=== PATIENT | male | born 1940 | race Caucasian/White ===

== ENCOUNTER 2016-05-30 10:39 | Emergency (ER) | payer MEDICARE, BC ==
[2016-05-30] MEDS ORDERED: Sodium Chloride 0.9% 10 ML Syringe FLUSH PRN (11:30)
[2016-05-30] MEDS ORDERED: Sodium Chloride 0.9% 2.5 ML Syringe FLUSH PRN (11:30)
--- NOTE | 2016-05-30 11:32 | EDM.PDOC ---
ED HISTORY OF PRESENT ILLNESS - General Chief Complaint: Chest Pain Stated Complaint: RT SIDE HURTS Time Seen by Provider: 05/30/16 11:25 Source of Information: Reports: Patient History Limitations: Reports: No limitations - History of Present Illness INITIAL COMMENTS - FREE TEXT/NARRATIVE: HISTORY AND PHYSICAL: [A 76-year-old male with history of COPD and states that he awakened this morning cough is normal and had some upper quadrant pain] History of Present Illness: [Pain started today Denies any injury or falls] Review of Systems: As per history of present illness and below otherwise all systems reviewed and negative. Past medical history: As per history of present illness and as reviewed below otherwise noncontributory. Surgical history: As per history of present illness and as reviewed below otherwise noncontributory. Social history: No reported history of drug or alcohol abuse. Family history: As per history of present illness and as reviewed below otherwise noncontributory. Physical exam: Alert and oriented gentleman HEENT: Atraumatic, normocehpalic, pupils reactive, negative for conjunctival pallor or scleral icterus, mucous membranes moist, throat clear, neck supple, nontender, trachea midline. Left eye with ecchymosis, small ecchymotic area above the left upper lip Lungs: Clear to auscultation, breath sounds equal bilaterally, chest non tender. Heart: S1S2, regular, negative for clicks, rubs, or JVD. Abdomen: Soft, nondistended, nontender. Negative for masses or hepatossplenmegaly. Negative for costovertebral tenderness. Pelvis: Stable nontender. Genitourinary: Deferred. Rectal: Deferred Extremities: Atraumatic, negative for cords or calf pain. Bilateral edema to lower extremities Neurovascular unremarkable. Neuro: Awake, alert, oriented. Cranial nerves II through XII unremarkable. Cerebellum unremarkable. Motor and sensory unremarkable throughout. Exam nonfocal. The patient denies any pain as long as he is sitting still with twisting movement or cough pain occurs to the left upper quad. Chest the appearance of having fallen he is adamant that he has not fallen. Lastly he is requesting his Ventolin inhaler to be renewed Diagnostics: [CBC CMP chest x-ray ultrasound limited] Therapeutics: [] Impression: [muscle strain] Plan: [home Ventolin inhaler 2 puffs 3 times a day when necessary for Followup with your primary care provider Tylenol or Advil for discomfort] Definitive disposition and diagnosis as appropriate pending reevaluation and review of above. Timing/Duration: Reports: Hour(s): Severity: moderate Location, General: Reports: abdomen Quality: Reports: Ache Improves with: Reports: None Worsens with: Reports: Movement - Related Data Allergies/ADRs: Allergies Allergy/AdvReac Type Severity Reaction Status Date / Time No Known Allergies Allergy Verified 05/30/16 11:02 Home Meds: Home Meds Albuterol [Ventolin HFA] 1 puff INH Q4H PRN #1 inh 03/23/14 [Rx] Fluticasone/Salmeterol [Advair 250-50 Diskus] 1 puff INH BID #1 diskus 03/23/14 [Rx] Lisinopril 10 mg PO DAILY 11/17/14 [History] Metoprolol Succinate [Toprol Xl] 100 mg PO BID 11/17/14 [History] Ranolazine [Ranexa] 500 mg PO BID 11/17/14 [History] Tiotropium [Spiriva HandiHaler] 18 mcg INH ONETIME 11/17/14 [History] Aspirin 162 mg PO BID 01/28/15 [History] Cholecalciferol (Vitamin D3) [Vitamin D3] 0 unit PO DAILY 01/28/15 [History] Lutein/Minerals/Vit A,C & E [Ocuvite] 1 tab PO DAILY 01/28/15 [History] Multivitamin [Multivitamins] 1 tab PO DAILY 01/28/15 [History] Nitroglycerin 1 tab PO ASDIRECTED PRN 01/28/15 [History] Albuterol [Ventolin HFA] 1 gm INH Q4H #1 inhaler 05/30/16 [Rx] Past Medical History Cardiovascular History: Reports: Bypass, CAD Respiratory History: Reports: COPD, Other (see below) Other Respiratory History: emphysema Gastrointestinal History: Reports: GERD Musculoskeletal History: Reports: Other (see below) Other Musculoskeletal History: past rib fx Oncologic (Cancer) History: Reports: Prostate - Past Surgical History HEENT Surgical History: Reports: Other (see below) Other HEENT Surgeries/Procedures: sinus Cardiovascular Surgical History: Reports: Coronary artery bypass Social & Family History - Tobacco Use Smoking Status *Q: Current Every Day Smoker Years of Tobacco use: 55 Packs/Tins Daily: 0.2 Used Tobacco, but Quit: No Second Hand Smoke Exposure: No - Caffeine Use Caffeine Use: Reports: Coffee, Soda - Alcohol Use Days Per Week of Alcohol Use: 7 Number of Drinks Per Day: 4 Total Drinks Per Week: 28 - Recreational Drug Use Recreational Drug Use: No ED ROS GENERAL - Review of Systems Review Of Systems: ROS reveals no pertinent complaints other than HPI. ED EXAM, GENERAL - Physical Exam Exam: See Below (see dictation) Course - Vital Signs Last Recorded V/S: Last Vital Signs Temp 36.1 C 05/30/16 12:45 Pulse 62 05/30/16 12:45 Resp 18 05/30/16 12:45 BP 156/76 H 05/30/16 12:45 Pulse Ox 95 05/30/16 12:45 - Orders/Labs/Meds Orders: Active Orders 24 hr Category Date Time Status EKG Documentation Completion [RC] STAT Care 05/30/16 11:30 Active Sodium Chloride 0.9% [Saline Flush] Med 05/30/16 11:30 Active 10 ml FLUSH ASDIRECTED PRN Sodium Chloride 0.9% [Saline Flush] Med 05/30/16 11:30 Active 2.5 ml FLUSH ASDIRECTED PRN Saline Lock Insert [OM.PC] Stat Oth 05/30/16 11:30 Ordered Medication Orders Sodium Chloride (Saline Flush) 10 ml FLUSH ASDIRECTED PRN PRN Reason: Keep Vein Open Sodium Chloride (Saline Flush) 2.5 ml FLUSH ASDIRECTED PRN PRN Reason: Keep Vein Open Labs: Laboratory Tests 05/30/16 05/30/16 05/30/16 Range/Units 11:48 11:48 11:48 WBC 6.24 (4.0-11.0) K/uL RBC 3.70 L (4.50-5.90) M/uL Hgb 10.9 L (13.0-17.0) g/dL Hct 32.8 L (38.0-50.0) % MCV 88.6 (80.0-98.0) fL MCH 29.5 (27.0-32.0) pg MCHC 33.2 (31.0-37.0) g/dL RDW Std Deviation 46.1 (28.0-62.0) fl RDW Coeff of Trae 14 (11.0-15.0) % Plt Count 240 (150-400) K/uL MPV 8.40 (7.40-12.00) fL Neut % (Auto) 65.1 (48.0-80.0) % Lymph % (Auto) 20.7 (16.0-40.0) % [place] % (Auto) 12.3 (0.0-15.0) % Eos % (Auto) 1.6 (0.0-7.0) % Baso % (Auto) 0.3 (0.0-1.5) % Neut # 4.1 (1.4-5.7) K/uL Lymph # 1.3 (0.6-2.4) K/uL [place] # 0.8 (0.0-0.8) K/uL Eos # 0.1 (0.0-0.7) K/uL Baso # 0.0 (0.0-0.1) K/uL Nucleated RBC % 0.0 /100WBC Nucleated RBCs # 0 K/uL Lactate 1.0 (0.20-2.00) mmol/L Sodium 131 L (136-146) mmol/L Potassium 4.9 (3.5-5.1) mmol/L Chloride 97 L (98-110) mmol/L Carbon Dioxide 25 (21-31) mmol/L BUN 19 (6.0-23.0) mg/dL Creatinine 1.1 (0.6-1.5) mg/dL Est Cr Clr Drug Dosing 52.36 mL/min Estimated GFR (MDRD) > 60.0 ml/min Glucose 93 (60-110) mg/dL Calcium 8.9 (8.8-10.8) mg/dL Total Bilirubin 0.8 (0.1-1.5) mg/dL AST 30 (5-40) IU/L ALT 23 (8-54) IU/L Alkaline Phosphatase 48 (40-150) Total Protein 7.1 (6.0-8.0) g/dL Albumin 4.1 (3.4-4.8) g/dL Globulin 3.0 (2.0-3.5) g/dL Albumin/Globulin Ratio 1.4 (1.3-2.8) Meds: Medications Generic Name Dose Route Start Last Admin Trade Name Freq PRN Reason Stop Dose Admin Sodium Chloride 10 ml 05/30/16 11:30 Saline Flush FLUSH ASDIRECTED PRN Keep Vein Open Sodium Chloride 2.5 ml 05/30/16 11:30 Saline Flush FLUSH ASDIRECTED PRN Keep Vein Open Discontinued Medications Generic Name Dose Route Start Last Admin Trade Name Freq PRN Reason Stop Dose Admin Ketorolac Tromethamine 30 mg 05/30/16 12:41 05/30/16 12:59 Toradol IVPUSH 05/30/16 12:42 Not Given ONETIME ONE Departure - Departure Time of Disposition: 13:34 Disposition: Home, Self-Care 01 Condition: good Clinical Impression: COPD, Moderate chronic obstructive pulmonary disease Muscle strain of chest wall Qualifiers: Encounter type: initial encounter Qualified Code(s): S29.011A - Strain of muscle and tendon of front wall of thorax, initial encounter Prescriptions: Albuterol [Ventolin HFA] 1 gm INH Q4H #1 inhaler Forms: ED Department Discharge Additional Instructions: The following information is given to patients seen in the emergency department who are being discharged to home. This information is to outline your options for follow-up care. We provide all patients seen in our emergency department with a follow-up referral. The need for follow-up, as well as the timing and circumstances, are variable depending upon the specifics of your emergency department visit. If you don't have a primary care physician on staff, we will provide you with a referral. We always advise you to contact your personal physician following an emergency department visit to inform them of the circumstance of the visit and for follow-up with them and/or the need for any referrals to a consulting specialist. The emergency department will also refer you to a specialist when appropriate. This referral assures that you have the opportunity for followup care with a specialist. All of these measure are taken in an effort to provide you with optimal care, which includes your followup. Under all circumstances we always encourage you to contact your private physician who remains a resource for coordinating your care. When calling for followup care, please make the office aware that this follow-up is from your recent emergency room visit. If for any reason you are refused follow-up, please contact the [facility] emergency department at and asked to speak to the emergency department charge nurse. Your prescription has been electronically sent to [facility] Followup with your PCP next week - My Orders Last 24 Hours: My Active Orders 05/30/16 11:30 EKG Documentation Completion [RC] STAT Sodium Chloride 0.9% [Saline Flush] 10 ml FLUSH ASDIRECTED PRN Sodium Chloride 0.9% [Saline Flush] 2.5 ml FLUSH ASDIRECTED PRN Saline Lock Insert [OM.PC] Stat - Assessment/Plan Last 24 Hours: My Active Orders 05/30/16 11:30 EKG Documentation Completion [RC] STAT Sodium Chloride 0.9% [Saline Flush] 10 ml FLUSH ASDIRECTED PRN Sodium Chloride 0.9% [Saline Flush] 2.5 ml FLUSH ASDIRECTED PRN Saline Lock Insert [OM.PC] Stat
[2016-05-30 12:17] LABS: CHLORIDE,CL 97 mmol/L (98-110); SODIUM,NA 131 mmol/L (136-146)
--- NOTE | 2016-05-30 12:40 | US ---
EXAMINATION: Right upper quadrant ultrasound HISTORY: Pain COMPARISON: CT dated 08/07/2013 TECHNIQUE: Grayscale and color Doppler images obtained of the right upper quadrant. FINDINGS: The pancreas is not well characterized. The liver appears normal in contour and echogenici ty without a focal hepatic mass. Gallbladder wall thickness is normal. No pericholecystic fluid or s hadowing gallstones. Common bile duct measures 3 mm. The right kidney measures 11.5 cm [id number] without evidence of hydronephrosis. No ascites identified. Negative sonographic Ty sign. IMPRESSION: Grossly unremarkable right upper quadrant ultrasound.
[2016-05-30] MEDS ORDERED: Ketorolac 30 MG/ML SDV IVPUSH ONE (12:41)
--- NOTE | 2016-05-30 13:19 | CR ---
EXAMINATION: Two-view chest (PA and Lateral views). HISTORY: Shortness of breath. FINDINGS: The trachea is midline. The cardiomediastinal silhouette is within normal limits. No pulmonary infil trates, effusions or pneumothorax. There is a chronic interstitial prominence and mild hyperinflatio n. Median sternotomy wires noted. Multiple chronic appearing rib fractures are noted bilaterally. There is several compression deformi ties within the thoracic spine. IMPRESSION: 1. No definite acute cardiopulmonary finding. 2. Old rib fractures noted. 3. Several compression deformities in the thoracic spine. 4. Chronic interstitial prominence and hyperinflation.
[2016-05-30 14:02] VITALS: BP 185/89
== END 2016-05-30 14:04 | disposition home or self-care (01) ==
LOC: MW.ED 10:39
DX: J44.9 Chronic obstructive pulmonary disease, unspecified (principal); K21.9 Gastro-esophageal reflux disease without esophagitis; F17.210 Nicotine dependence, cigarettes, uncomplicated; Z79.899 Other long term (current) drug therapy; Z95.1 Presence of aortocoronary bypass graft
CPT/HCPCS: 36415; 71020; 71020-26; 76705; 76705-26; 80053; 83605; 85025; 93005; 99284; 99284-25

== ENCOUNTER → 2016-06-12 | Outpatient (CLI) | payer MEDICARE, BC | LOC: MW.CHFP 15:25 | PROVIDERS: ATTEND Emergency Medicine | DX: R53.83 Other fatigue (principal); J44.1 Chronic obstructive pulmonary disease with (acute) exacerbation; K43.9 Ventral hernia without obstruction or gangrene | CPT/HCPCS: 36415; 84402; 84403; G0463 ==

== ENCOUNTER 2016-07-19 15:59 | Emergency (ER) | payer MEDICARE, BC ==
[2016-07-19] MEDS ORDERED: Sodium Chloride 0.9% 10 ML Syringe FLUSH PRN (16:17)
[2016-07-19] MEDS ORDERED: Sodium Chloride 0.9% 2.5 ML Syringe FLUSH PRN (16:17)
--- NOTE | 2016-07-19 16:19 | EDM.PDOC ---
ED HISTORY OF PRESENT ILLNESS - General Chief Complaint: Cardiovascular Problem Stated Complaint: LOW BP Time Seen by Provider: 07/19/16 16:04 - History of Present Illness INITIAL COMMENTS - FREE TEXT/NARRATIVE: HISTORY AND PHYSICAL: History of present illness: The patient is a 76-year-old male who follows in our family practice clinic as well as with Dr. Portillo for cardiology in [place] and presents with low blood pressures at home. According to the patient he was seen by the vacuum cleaner repair person 2 days ago in [place] and had a few of his medications changed but overall he says he was doing well and had no issues. Today the patient says he was having a normal day and did some activity and this afternoon started feeling generalized weakness a little lightheaded and sweaty. He took his blood pressures at home and noted that they were systolics of 70s-60s over 40s. He did not pass out or blackout and had no chest pain shortness of breath headache nausea vomiting abdominal complaints or neurosensory changes. He called the clinic for advice and was advised to come here. Procedure the clinic he was not sure if you would be coming and he presents now to the ED. He says he currently feels asymptomatic and is not lightheaded dizzy and has no complaints of any pain in the ER. The patient has had multiple medical problems including coronary artery disease with CABG and an aortic valve replacement with a porcine valve. He has carotid stenosis COPD diastolic dysfunction dyslipidemia hypertension hyponatremia in the past as well as stable angina for which he uses nitroglycerin at home as needed. Patient denies using nitroglycerin anytime in the last few days. The patient says he's been eating and drinking normally and has been following his usual routine. Patient gives me a list of blood pressure studies performed over the last several weeks and it shows a progressive decrease in his numbers from 130s systolic to today's numbers. I asked him whether or not he should these list to Dr. Portillo and he says yes. Review of systems: As per history of present illness and below otherwise all systems reviewed and negative. Past medical history: As per history of present illness and as reviewed below otherwise noncontributory. Surgical history: As per history of present illness and as reviewed below otherwise noncontributory. Social history: No reported history of drug or alcohol abuse. Family history: As per history of present illness and as reviewed below otherwise noncontributory. Physical exam: General: Well-developed thin man who is nontoxic and speaking clearly and easily in the ED. Vital signs are noted by me and his current systolic blood pressure is 108 on my evaluation. He has no symptomatology and is cooperative and interactive. HEENT: Atraumatic, normocephalic, pupils reactive, negative for conjunctival pallor or scleral icterus, mucous membranes moist, throat clear, neck supple, nontender, trachea midline. Lungs: Clear to auscultation, breath sounds equal bilaterally, chest nontender. There is no work or breathing or sensory muscle use Heart: S1S2, regular, negative for clicks, rubs, or JVD. Abdomen: Soft, nondistended, nontender. Negative for masses or hepatosplenomegaly. Negative for costovertebral tenderness. Pelvis: Stable nontender. Genitourinary: Deferred. Rectal: Deferred. Extremities: Atraumatic, negative for cords or calf pain. Neurovascular unremarkable. No pedal edema Neuro: Awake, alert, oriented. Cranial nerves II through XII unremarkable. Cerebellum unremarkable. Motor and sensory unremarkable throughout. Exam nonfocal. Diagnostics: EKG CBC CMP INR troponin lactic acid UA chest x-ray I reviewed the EKG and compared to one performed on May 30, 2016. It is basically unchanged except for a new T-wave inversion in V5 which was not present in May all other changes are chronic. Therapeutics: IV O2 monitor gentle IV fluids I discussed the testing results with the patient at length and have shown him his current EKG as compared to the one done in May of this year. I showed him the new T-wave inversion in V5 and have advised that he stay in the hospital on a monitor to follow that change as well as serial troponins and adjust his blood pressure medications. He absolutely is refusing to stay in the hospital. He is aware of my concerns and accepts all of them and says that he will be in contact with Dr. Trejo tomorrow to discuss his medications and he will also contact Dr. Portillo. he is aware that we cannot definitively say that there was not a cardiac component to today's events and only eating and today's visit and concern that his medications are not being adjusted to accommodate for these changes and he accepts those risks and refuses admission.that the only way that we determine this by admission to the hospital and he declined the admission. I also expressed my concern about his variable blood pressures over the last few weeks Impression: hypotension resolved prior to admission with history of hypertension and cardiac disease, mild dehydration, refusal of admission Definitive disposition and diagnosis as appropriate pending reevaluation and review of above. - Related Data Allergies/ADRs: Allergies Allergy/AdvReac Type Severity Reaction Status Date / Time No Known Allergies Allergy Verified 07/19/16 16:12 Home Meds: Home Meds Lisinopril 10 mg PO DAILY 11/17/14 [History] Metoprolol Succinate [Toprol Xl] 100 mg PO BID 11/17/14 [History] Ranolazine [Ranexa] 500 mg PO DAILY 11/17/14 [History] Tiotropium [Spiriva HandiHaler] 18 mcg INH DAILY 11/17/14 [History] Aspirin 325 mg PO ACDINNER 01/28/15 [History] Cholecalciferol (Vitamin D3) [Vitamin D3] 2,000 unit PO DAILY 01/28/15 [History] Multivitamin [Multivitamins] 1 tab PO DAILY 01/28/15 [History] Nitroglycerin 1 tab PO ASDIRECTED PRN 01/28/15 [History] Ascorbic Acid [C-1000] 1,000 mg PO DAILY 07/19/16 [History] Clopidogrel [Plavix] 75 mg PO DAILY 07/19/16 [History] Ezetimibe/Simvastatin [Vytorin 10-80 mg Tablet] 1 tab PO BEDTIME 07/19/16 [ History] Famotidine 20 mg PO DAILY 07/19/16 [History] Fish Oil/[place]-3 Fatty Acids [Fish Oil 1,000 MG] 1 gm PO DAILY 07/19/16 [History ] Isosorbide Mononitrate [Imdur] 30 mg PO BID 07/19/16 [History] Lutein/Minerals/Vit A,C & E [Ocuvite] 1 tab PO DAILY 07/19/16 [History] Rutin/Hesp/Bioflav/C/Herb#196 [Bioflex] 1 each PO DAILY 07/19/16 [History] Ubidecarenone [Coenzyme Q10] 100 mg PO DAILY 07/19/16 [History] guaiFENesin [Guaifenesin] 400 mg PO Q4H PRN 07/19/16 [History] guaiFENesin [Mucinex] 600 mg PO ASDIRECTED 07/19/16 [History] Past Medical History Cardiovascular History: Reports: Bypass, CAD, Heart valve replacement Respiratory History: Reports: COPD, Other (see below) Other Respiratory History: emphysema Gastrointestinal History: Reports: GERD Musculoskeletal History: Reports: Other (see below) Other Musculoskeletal History: past rib fx Oncologic (Cancer) History: Reports: Prostate - Infectious Disease History Infectious Disease History: Reports: Chicken pox, Measles, Mumps - Past Surgical History HEENT Surgical History: Reports: Other (see below) Other HEENT Surgeries/Procedures: sinus Cardiovascular Surgical History: Reports: Coronary artery bypass Social & Family History - Family History Family Medical History: Noncontributory - Tobacco Use Smoking Status *Q: Current Every Day Smoker Years of Tobacco use: 50 Packs/Tins Daily: 0.1 Used Tobacco, but Quit: No Second Hand Smoke Exposure: No - Caffeine Use Caffeine Use: Reports: None - Alcohol Use Days Per Week of Alcohol Use: 7 Number of Drinks Per Day: 3 Total Drinks Per Week: 21 - Recreational Drug Use Recreational Drug Use: No ED ROS GENERAL - Review of Systems Review Of Systems: ROS reveals no pertinent complaints other than HPI. ED EXAM, GENERAL - Physical Exam Exam: See Below (See dictation) Course - Vital Signs Last Recorded V/S: Last Vital Signs Temp 36.8 C 07/19/16 16:08 Pulse 62 07/19/16 16:08 Resp 18 07/19/16 16:08 BP 89/43 L 07/19/16 16:08 Pulse Ox 95 07/19/16 17:30 - Orders/Labs/Meds Orders: Active Orders 24 hr Category Date Time Status Cardiac Monitoring [RC] . DIRECTED Care 07/19/16 16:17 Active EKG Documentation Completion [RC] STAT Care 07/19/16 16:17 Active Oxygen Therapy, ED [RC] ASDIRECTED Care 07/19/16 16:17 Active Pulse Oximetry [RC] ASDIRECTED Care 07/19/16 16:17 Active Chest 1V Frontal [CR] Stat Exams 07/19/16 16:17 Taken Sodium Chloride 0.9% [Normal Saline] 500 ml Med 07/19/16 16:30 Active IV STAT Sodium Chloride 0.9% [Saline Flush] Med 07/19/16 16:17 Active 10 ml FLUSH ASDIRECTED PRN Sodium Chloride 0.9% [Saline Flush] Med 07/19/16 16:17 Active 2.5 ml FLUSH ASDIRECTED PRN Saline Lock Insert [OM.PC] Stat Oth 07/19/16 16:17 Ordered Medication Orders Sodium Chloride (Normal Saline) 500 mls @ 999 mls/hr IV STAT PURVI Last Admin: 07/19/16 16:00 Dose: 999 mls/hr Sodium Chloride (Saline Flush) 10 ml FLUSH ASDIRECTED PRN PRN Reason: Keep Vein Open Sodium Chloride (Saline Flush) 2.5 ml FLUSH ASDIRECTED PRN PRN Reason: Keep Vein Open Labs: Laboratory Tests 07/19/16 07/19/16 07/19/16 Range/Units 16:10 16:10 16:10 WBC 5.25 (4.0-11.0) K/uL RBC 3.51 L (4.50-5.90) M/uL Hgb 10.2 L (13.0-17.0) g/dL Hct 30.1 L (38.0-50.0) % MCV 85.8 (80.0-98.0) fL MCH 29.1 (27.0-32.0) pg MCHC 33.9 (31.0-37.0) g/dL RDW Std Deviation 55.3 (28.0-62.0) fl RDW Coeff of Trae 18 H (11.0-15.0) % Plt Count 271 (150-400) K/uL MPV 8.90 (7.40-12.00) fL Neut % (Auto) 57.4 (48.0-80.0) % Lymph % (Auto) 24.8 (16.0-40.0) % Hutchinson % (Auto) 14.5 (0.0-15.0) % Eos % (Auto) 2.9 (0.0-7.0) % Baso % (Auto) 0.4 (0.0-1.5) % Neut # (Auto) 3.0 (1.4-5.7) K/uL Lymph # (Auto) 1.3 (0.6-2.4) K/uL Hutchinson # (Auto) 0.8 (0.0-0.8) K/uL Eos # (Auto) 0.2 (0.0-0.7) K/uL Baso # (Auto) 0.0 (0.0-0.1) K/uL Nucleated RBC % 0.0 /100WBC Nucleated RBCs # 0 K/uL INR 0.96 (0.86-1.11) Lactate 1.6 (0.20-2.00) mmol/L Sodium (136-146) mmol/L Potassium (3.5-5.1) mmol/L Chloride (98-110) mmol/L Carbon Dioxide (21-31) mmol/L BUN (6.0-23.0) mg/dL Creatinine (0.6-1.5) mg/dL Est Cr Clr Drug Dosing mL/min Estimated GFR (MDRD) ml/min Glucose (60-110) mg/dL Calcium (8.8-10.8) mg/dL Total Bilirubin (0.1-1.5) mg/dL AST (5-40) IU/L ALT (8-54) IU/L Alkaline Phosphatase (40-150) Troponin I (0.0-0.29) NG/ML Total Protein (6.0-8.0) g/dL Albumin (3.4-4.8) g/dL Globulin (2.0-3.5) g/dL Albumin/Globulin Ratio (1.3-2.8) 07/19/16 07/19/16 Range/Units 16:10 16:10 WBC (4.0-11.0) K/uL RBC (4.50-5.90) M/uL Hgb (13.0-17.0) g/dL Hct (38.0-50.0) % MCV (80.0-98.0) fL MCH (27.0-32.0) pg MCHC (31.0-37.0) g/dL RDW Std Deviation (28.0-62.0) fl RDW Coeff of Trae (11.0-15.0) % Plt Count (150-400) K/uL MPV (7.40-12.00) fL Neut % (Auto) (48.0-80.0) % Lymph % (Auto) (16.0-40.0) % Hutchinson % (Auto) (0.0-15.0) % Eos % (Auto) (0.0-7.0) % Baso % (Auto) (0.0-1.5) % Neut # (Auto) (1.4-5.7) K/uL Lymph # (Auto) (0.6-2.4) K/uL Hutchinson # (Auto) (0.0-0.8) K/uL Eos # (Auto) (0.0-0.7) K/uL Baso # (Auto) (0.0-0.1) K/uL Nucleated RBC % /100WBC Nucleated RBCs # K/uL INR (0.86-1.11) Lactate (0.20-2.00) mmol/L Sodium 130 L (136-146) mmol/L Potassium 4.7 (3.5-5.1) mmol/L Chloride 99 (98-110) mmol/L Carbon Dioxide 19 L (21-31) mmol/L BUN 25 H (6.0-23.0) mg/dL Creatinine 1.3 (0.6-1.5) mg/dL Est Cr Clr Drug Dosing 42.01 mL/min Estimated GFR (MDRD) 53.8 ml/min Glucose 96 (60-110) mg/dL Calcium 9.3 (8.8-10.8) mg/dL Total Bilirubin 0.3 (0.1-1.5) mg/dL AST 21 (5-40) IU/L ALT 12 (8-54) IU/L Alkaline Phosphatase 42 (40-150) Troponin I < 0.10 (0.0-0.29) NG/ML Total Protein 7.1 (6.0-8.0) g/dL Albumin 4.2 (3.4-4.8) g/dL Globulin 2.9 (2.0-3.5) g/dL Albumin/Globulin Ratio 1.4 (1.3-2.8) Meds: Medications Generic Name Dose Route Start Last Admin Trade Name Freq PRN Reason Stop Dose Admin Sodium Chloride 500 mls @ 999 mls/hr 07/19/16 16:30 07/19/16 16:00 Normal Saline IV 999 mls/hr STAT PURVI Administration Sodium Chloride 10 ml 07/19/16 16:17 Saline Flush FLUSH ASDIRECTED PRN Keep Vein Open Sodium Chloride 2.5 ml 07/19/16 16:17 Saline Flush FLUSH ASDIRECTED PRN Keep Vein Open Departure - Departure Time of Disposition: 17:44 Disposition: Home, Self-Care 01 Condition: good Clinical Impression: Hypotension Qualifiers: Hypotension type: unspecified hypotension type Qualified Code(s): I95.9 - Hypotension, unspecified Forms: ED Department Discharge Additional Instructions: The following information is given to patients seen in the emergency department who are being discharged to home. This information is to outline your options for follow-up care. We provide all patients seen in our emergency department with a follow-up referral. The need for follow-up, as well as the timing and circumstances, are variable depending upon the specifics of your emergency department visit. If you don't have a primary care physician on staff, we will provide you with a referral. We always advise you to contact your personal physician following an emergency department visit to inform them of the circumstance of the visit and for follow-up with them and/or the need for any referrals to a consulting specialist. The emergency department will also refer you to a specialist when appropriate. This referral assures that you have the opportunity for followup care with a specialist. All of these measure are taken in an effort to provide you with optimal care, which includes your followup. Under all circumstances we always encourage you to contact your private physician who remains a resource for coordinating your care. When calling for followup care, please make the office aware that this follow-up is from your recent emergency room visit. If for any reason you are refused follow-up, please contact the [facility] emergency department at and ask to speak to the emergency department charge nurse. [facility] Primary care- Internal Medicine and Family [address] Trejo and or Dr. Portillo tomorrow as we discussed to adjust the medications. Please continue to monitor your blood pressure as we discussed. Please push hydration and please return to the ER as needed and as discussed and if you decide to change your mind about admission - My Orders Last 24 Hours: My Active Orders 07/19/16 16:17 Cardiac Monitoring [RC] . DIRECTED EKG Documentation Completion [RC] STAT Oxygen Therapy, ED [RC] ASDIRECTED Pulse Oximetry [RC] ASDIRECTED Chest 1V Frontal [CR] Stat Sodium Chloride 0.9% [Saline Flush] 10 ml FLUSH ASDIRECTED PRN Sodium Chloride 0.9% [Saline Flush] 2.5 ml FLUSH ASDIRECTED PRN Saline Lock Insert [OM.PC] Stat 07/19/16 16:30 Sodium Chloride 0.9% [Normal Saline] 500 ml IV STAT - Assessment/Plan Last 24 Hours: My Active Orders 07/19/16 16:17 Cardiac Monitoring [RC] . DIRECTED EKG Documentation Completion [RC] STAT Oxygen Therapy, ED [RC] ASDIRECTED Pulse Oximetry [RC] ASDIRECTED Chest 1V Frontal [CR] Stat Sodium Chloride 0.9% [Saline Flush] 10 ml FLUSH ASDIRECTED PRN Sodium Chloride 0.9% [Saline Flush] 2.5 ml FLUSH ASDIRECTED PRN Saline Lock Insert [OM.PC] Stat 07/19/16 16:30 Sodium Chloride 0.9% [Normal Saline] 500 ml IV STAT
[2016-07-19] MEDS ORDERED: Sodium Chloride 0.9% 500 ML IV SCH (16:30)
[2016-07-19 18:02] VITALS: BP 105/59
--- NOTE | 2016-07-20 16:00 | CR ---
EXAM DATE: 07/19/16 PATIENT'S AGE: 76 Patient: TRISTAN ROSS Facility: [place], [place] Site . Site : 1940 Study: XRay Chest [id number]/4/2017 5:15:21 PM Ordering Physician: Neal Vidal Final Report: INDICATIONS: Low blood pressure. TECHNIQUE: Chest 1 view. COMPARISON: Chest radiograph 05/30/2016. FINDINGS: No pneumothorax, pleural effusion or focal airspace consolidation. Aortic atherosclerosis and tortuosity, unchanged. Median sternotomy. Mild enlargement of the cardiac silhouette. No pulmonary edema. Remote right clavicle and rib fractures as before. IMPRESSION: No evidence of acute cardiopulmonary disease. Dictated by Casper Navas MD @ 07/19/2016 5:22:49 PM Dictated by: Casper Navas MD @ 07/19/2016 17:22:55 (Electronic Signature) Report Signed by Proxy. [facility]
== END 2016-07-19 18:02 | disposition home or self-care (01) ==
LOC: MW.ED 15:59
DX: I95.9 Hypotension, unspecified (principal); F17.210 Nicotine dependence, cigarettes, uncomplicated; I25.810 Atherosclerosis of coronary artery bypass graft(s) without angina pectoris; K21.9 Gastro-esophageal reflux disease without esophagitis; Z95.1 Presence of aortocoronary bypass graft; Z95.2 Presence of prosthetic heart valve; Z85.46 Personal history of malignant neoplasm of prostate; Z79.82 Long term (current) use of aspirin; Z79.02 Long term (current) use of antithrombotics/antiplatelets; Z79.899 Other long term (current) drug therapy
CPT/HCPCS: 36415; 71010; 80053; 83605; 84484; 85025; 85610; 93005; 99285; J7040; 99283

== ENCOUNTER 2016-07-20 13:30 | Inpatient (IN) | payer MEDICARE, BC ==
[2016-07-20] MEDS ORDERED: Sodium Chloride 0.9% 10 ML Syringe FLUSH PRN (13:34)
[2016-07-20] MEDS ORDERED: Sodium Chloride 0.9% 2.5 ML Syringe FLUSH PRN (13:34)
[2016-07-20] MEDS ORDERED: Sodium Chloride 0.9% 1,000 ML IV SCH (13:45)
[2016-07-20] MEDS ORDERED: Aspirin 81 MG Tab.Chew PO ONE (13:47)
--- NOTE | 2016-07-20 13:55 | EDM.PDOC ---
ED HPI GENERAL MEDICAL PROBLEM - General Chief Complaint: Chest Pain Stated Complaint: UNK Time Seen by Provider: 07/20/16 13:31 - History of Present Illness INITIAL COMMENTS - FREE TEXT/NARRATIVE: HISTORY AND PHYSICAL: History of present illness: The patient is a 76-year-old male with a long-standing history of COPD CABG porcine aortic valve replacement diastolic dysfunction dyslipidemia upper tension who follows with Dr. Trejo in our clinic as well as Dr. Portillo in [place] for cardiology, who presents today for reevaluation of her low blood pressure. The patient was seen here yesterday by me for gradually decreasing blood pressures over the last few weeks and new low blood pressures of 60s over 40s with lightheadedness but no syncope. According to the patient he was seen on Saturday of this week by Dr. Portillo and had to his medications adjusted as he showed Dr. Portillo his blood pressure numbers over the last few weeks and they indicated he was going from 130s to 80s systolic. The patient states that he monitors his blood pressure at home very diligently and has never had any syncope but intermittently will feel lightheaded and dizzy. When I saw him yesterday he had no complaints of shortness of breath or chest pain and no other systemic complaints has been eating and drinking normally with no fevers. Patient was worked up and was noted to have a new T-wave inversion on V5 of EKG but negative troponin and slight dehydration on his chemistry panel. Throughout the course of the patient's stay in the ER his blood pressure never went below 100 systolic. The patient was offered admission for reevaluation of his blood pressure medications as well as serial EKGs and enzymes and he adamantly refused and went home. Patient says that he hadan important meeting last night that he could not miss. Patient says he's been following his blood pressures which have been 120s to 130s systolic through the night; he said that he started having some chest pain and burning around 3:00 in the morning but did not take a nitroglycerin until one hour later at 4 AM. The discomfort went away but then returned about an hour later and he took a second nitroglycerin at 5 AM. The chest pain/burning has not returned and he is currently asymptomatic other than feeling somewhat fatigued and tired and a little short of breath with activity. the patient says he feels like he has a little bit of swelling of his feet but it is not significant The patient again denies fever chills abdominal pain nausea diaphoresis and currently states that he feels at his baseline and he does not understand why his blood pressure is still low. The lowest value he got to the last 18 hours was 70/40. Patient presented to triage asking for a direct admission but due to the timeframe he was unable to get a directed and we will work him up through the ER. He is also aware that in light of his 2 episodes of chest pain this morning he would need to have reevaluation here. Patient again denies to me any black or bloody stools and diarrhea says he has not had a bowel movement today but his prior ones yesterday the day before were normal for him Review of systems: As per history of present illness and below otherwise all systems reviewed and negative. Past medical history: As per history of present illness and as reviewed below otherwise noncontributory. Surgical history: As per history of present illness and as reviewed below otherwise noncontributory. Social history: No reported history of drug or alcohol abuse. Family history: As per history of present illness and as reviewed below otherwise noncontributory. Physical exam: General: Well-developed thin man who is nontoxic and speaking clearly and easily in the ED. Vital signs have been noted by me. Is not breathless on my evaluation. HEENT: Atraumatic, normocephalic, negative for conjunctival pallor or scleral icterus, mucous membranes moist, throat clear, neck supple, nontender, trachea midline. Lungs: Clear to auscultation but more diminished at the bases than yesterday's evaluation, no work or breathing or sensory muscle use no wheezing or stridor,, breath sounds equal bilaterally, chest nontender. Heart: S1S2, regular, negative for clicks, rubs, or JVD. Abdomen: Soft, nondistended, nontender. Negative for masses or hepatosplenomegaly. Negative for costovertebral tenderness. Pelvis: Stable nontender. Genitourinary: Deferred. Rectal: Scant brown stool in the vault which is not black or bloody but Hemoccult negative normal tone Extremities: Atraumatic, negative for cords or calf pain. Neurovascular unremarkable. Trace pedal edema bilaterally Neuro: Awake, alert, oriented. Cranial nerves II through XII unremarkable. Cerebellum unremarkable. Motor and sensory unremarkable throughout. Exam nonfocal. Diagnostics: EKG chest x-ray CBC CMP troponin UA Therapeutics: IV O2 monitor and aspirin gentle IV fluids 1459: Patient and family at bedside are aware of testing results and need for admission. Case was also discussed with Dr. Sebastian who accepts the patient for observation admission Impression: Episodic hypotension with history of hypertension, new mild anemia and heme positive stool, episodes of chest pain resolved prior to admission and h/o stable angina, history of coronary artery disease CABG and aortic valve replacement Definitive disposition and diagnosis as appropriate pending reevaluation and review of above. - Related Data Allergies Allergy/AdvReac Type Severity Reaction Status Date / Time No Known Allergies Allergy Verified 07/19/16 16:12 Home Meds: Home Meds Lisinopril 10 mg PO DAILY 11/17/14 [History] Metoprolol Succinate [Toprol Xl] 100 mg PO BID 11/17/14 [History] Ranolazine [Ranexa] 500 mg PO DAILY 11/17/14 [History] Tiotropium [Spiriva HandiHaler] 18 mcg INH DAILY 11/17/14 [History] Aspirin 325 mg PO ACDINNER 01/28/15 [History] Cholecalciferol (Vitamin D3) [Vitamin D3] 2,000 unit PO DAILY 01/28/15 [History] Multivitamin [Multivitamins] 1 tab PO DAILY 01/28/15 [History] Nitroglycerin 1 tab PO ASDIRECTED PRN 01/28/15 [History] Ascorbic Acid [C-1000] 1,000 mg PO DAILY 07/19/16 [History] Clopidogrel [Plavix] 75 mg PO DAILY 07/19/16 [History] Ezetimibe/Simvastatin [Vytorin 10-80 mg Tablet] 1 tab PO BEDTIME 07/19/16 [ History] Famotidine 20 mg PO DAILY 07/19/16 [History] Fish Oil/Belle-3 Fatty Acids [Fish Oil 1,000 MG] 1 gm PO DAILY 07/19/16 [History ] Isosorbide Mononitrate [Imdur] 30 mg PO BID 07/19/16 [History] Lutein/Minerals/Vit A,C & E [Ocuvite] 1 tab PO DAILY 07/19/16 [History] Rutin/Hesp/Bioflav/C/Herb#196 [Bioflex] 1 each PO DAILY 07/19/16 [History] Ubidecarenone [Coenzyme Q10] 100 mg PO DAILY 07/19/16 [History] guaiFENesin [Guaifenesin] 400 mg PO Q4H PRN 07/19/16 [History] guaiFENesin [Mucinex] 600 mg PO ASDIRECTED 07/19/16 [History] Past Medical History Cardiovascular History: Reports: Bypass, CAD, Heart valve replacement Respiratory History: Reports: COPD, Other (see below) Other Respiratory History: emphysema Gastrointestinal History: Reports: GERD Musculoskeletal History: Reports: Other (see below) Other Musculoskeletal History: past rib fx Oncologic (Cancer) History: Reports: Prostate - Infectious Disease History Infectious Disease History: Reports: Chicken pox, Measles, Mumps - Past Surgical History HEENT Surgical History: Reports: Other (see below) Other HEENT Surgeries/Procedures: sinus Cardiovascular Surgical History: Reports: Coronary artery bypass Social & Family History - Family History Family Medical History: Noncontributory - Tobacco Use Smoking Status *Q: Current Every Day Smoker Years of Tobacco use: 50 Packs/Tins Daily: 0.1 Used Tobacco, but Quit: No Second Hand Smoke Exposure: No - Caffeine Use Caffeine Use: Reports: None - Alcohol Use Days Per Week of Alcohol Use: 7 Number of Drinks Per Day: 3 Total Drinks Per Week: 21 - Recreational Drug Use Recreational Drug Use: No ED ROS GENERAL - Review of Systems Review Of Systems: ROS reveals no pertinent complaints other than HPI. ED EXAM, GENERAL - Physical Exam Exam: See Below (See dictation) Course - Vital Signs Last Recorded V/S: Last Vital Signs Temp 37.4 C 07/20/16 13:41 Pulse 66 07/20/16 14:46 Resp 19 07/20/16 14:46 BP 110/62 07/20/16 14:46 Pulse Ox 95 07/20/16 14:46 - Orders/Labs/Meds Orders: Active Orders 24 hr Category Date Time Status Patient Status [ADT] Stat ADT 07/20/16 15:05 Ordered Cardiac Monitoring [RC] . DIRECTED Care 07/20/16 13:33 Active EKG Documentation Completion [RC] STAT Care 07/20/16 13:33 Active Oxygen Therapy, ED [RC] ASDIRECTED Care 07/20/16 13:33 Active Pulse Oximetry [RC] ASDIRECTED Care 07/20/16 13:33 Active UA W/MICROSCOPIC [URIN] Stat Lab 07/20/16 13:33 Uncollected Pantoprazole [ProTONIX IV] 80 mg Med 07/20/16 14:45 Active Sodium Chloride 0.9% [Normal Saline] 100 ml IV .Continuous Sodium Chloride 0.9% [Normal Saline] 1,000 ml Med 07/20/16 13:45 Active IV ASDIRECTED Sodium Chloride 0.9% [Saline Flush] Med 07/20/16 13:34 Active 10 ml FLUSH ASDIRECTED PRN Sodium Chloride 0.9% [Saline Flush] Med 07/20/16 13:34 Active 2.5 ml FLUSH ASDIRECTED PRN Saline Lock Insert [OM.PC] Stat Oth 07/20/16 13:33 Ordered Medication Orders Sodium Chloride (Normal Saline) 1,000 mls @ 50 mls/hr IV ASDIRECTED PURVI Last Admin: 07/20/16 13:51 Dose: 50 mls/hr Pantoprazole Sodium 80 mg/ (Sodium Chloride) 100 mls @ 10 mls/hr IV .Continuous PURVI Sodium Chloride (Saline Flush) 10 ml FLUSH ASDIRECTED PRN PRN Reason: Keep Vein Open Last Admin: 07/20/16 13:51 Dose: 10 ml Sodium Chloride (Saline Flush) 2.5 ml FLUSH ASDIRECTED PRN PRN Reason: Keep Vein Open Last Admin: 07/20/16 13:51 Dose: 2.5 ml Labs: Laboratory Tests 07/20/16 07/20/16 07/20/16 Range/Units 13:30 13:30 13:30 WBC 4.55 (4.0-11.0) K/uL RBC 2.99 L (4.50-5.90) M/uL Hgb 8.8 L (13.0-17.0) g/dL Hct 25.6 L (38.0-50.0) % MCV 85.6 (80.0-98.0) fL MCH 29.4 (27.0-32.0) pg MCHC 34.4 (31.0-37.0) g/dL RDW Std Deviation 55.4 (28.0-62.0) fl RDW Coeff of Trae 18 H (11.0-15.0) % Plt Count 242 (150-400) K/uL MPV 8.30 (7.40-12.00) fL Neut % (Auto) 60.2 (48.0-80.0) % Lymph % (Auto) 24.6 (16.0-40.0) % Irion % (Auto) 14.1 (0.0-15.0) % Eos % (Auto) 0.9 (0.0-7.0) % Baso % (Auto) 0.2 (0.0-1.5) % Neut # (Auto) 2.7 (1.4-5.7) K/uL Lymph # (Auto) 1.1 (0.6-2.4) K/uL Irion # (Auto) 0.6 (0.0-0.8) K/uL Eos # (Auto) 0.0 (0.0-0.7) K/uL Baso # (Auto) 0.0 (0.0-0.1) K/uL Nucleated RBC % 0.0 /100WBC Nucleated RBCs # 0 K/uL Sodium 132 L (136-146) mmol/L Potassium 4.6 (3.5-5.1) mmol/L Chloride 101 (98-110) mmol/L Carbon Dioxide 20 L (21-31) mmol/L BUN 28 H (6.0-23.0) mg/dL Creatinine 1.6 H (0.6-1.5) mg/dL Est Cr Clr Drug Dosing 33.53 mL/min Estimated GFR (MDRD) 42.3 ml/min Glucose 114 H (60-110) mg/dL Calcium 8.9 (8.8-10.8) mg/dL Total Bilirubin 0.4 (0.1-1.5) mg/dL AST 15 (5-40) IU/L ALT 10 (8-54) IU/L Alkaline Phosphatase 37 L (40-150) Troponin I < 0.10 (0.0-0.29) NG/ML Total Protein 6.4 (6.0-8.0) g/dL Albumin 3.9 (3.4-4.8) g/dL Globulin 2.5 (2.0-3.5) g/dL Albumin/Globulin Ratio 1.6 (1.3-2.8) Meds: Medications Generic Name Dose Route Start Last Admin Trade Name Freq PRN Reason Stop Dose Admin Sodium Chloride 1,000 mls @ 50 mls/hr 07/20/16 13:45 07/20/16 13:51 Normal Saline IV 50 mls/hr ASDIRECTED PURVI Administration Pantoprazole Sodium 80 mg/ 100 mls @ 10 mls/hr 07/20/16 14:45 Sodium Chloride IV .Continuous PURVI Sodium Chloride 10 ml 07/20/16 13:34 07/20/16 13:51 Saline Flush FLUSH 10 ml ASDIRECTED PRN Administration Keep Vein Open Sodium Chloride 2.5 ml 07/20/16 13:34 07/20/16 13:51 Saline Flush FLUSH 2.5 ml ASDIRECTED PRN Administration Keep Vein Open Discontinued Medications Generic Name Dose Route Start Last Admin Trade Name Freq PRN Reason Stop Dose Admin Aspirin 324 mg 07/20/16 13:47 07/20/16 13:51 Aspirin PO 07/20/16 13:48 324 mg ONETIME ONE Administration Pantoprazole Sodium 80 mg 07/20/16 14:35 07/20/16 14:49 Protonix Iv IVPUSH 07/20/16 14:36 80 mg .BOLUS ONE Administration Departure - Departure Time of Disposition: 15:07 Disposition: Refer to Observation Condition: good Clinical Impression: Hypotension Qualifiers: Hypotension type: unspecified hypotension type Qualified Code(s): I95.9 - Hypotension, unspecified Anemia Qualifiers: Anemia type: unspecified type Qualified Code(s): D64.9 - Anemia, unspecified Forms: ED Department Discharge - My Orders Last 24 Hours: My Active Orders 07/20/16 13:33 Cardiac Monitoring [RC] . DIRECTED EKG Documentation Completion [RC] STAT Oxygen Therapy, ED [RC] ASDIRECTED Pulse Oximetry [RC] ASDIRECTED UA W/MICROSCOPIC [URIN] Stat Saline Lock Insert [OM.PC] Stat 07/20/16 13:34 Sodium Chloride 0.9% [Saline Flush] 10 ml FLUSH ASDIRECTED PRN Sodium Chloride 0.9% [Saline Flush] 2.5 ml FLUSH ASDIRECTED PRN 07/20/16 13:45 Sodium Chloride 0.9% [Normal Saline] 1,000 ml IV ASDIRECTED 07/20/16 14:45 Pantoprazole [ProTONIX IV] 80 mg Sodium Chloride 0.9% [Normal Saline] 100 ml IV .Continuous 07/20/16 15:05 Patient Status [ADT] Stat - Assessment/Plan Last 24 Hours: My Active Orders 07/20/16 13:33 Cardiac Monitoring [RC] . DIRECTED EKG Documentation Completion [RC] STAT Oxygen Therapy, ED [RC] ASDIRECTED Pulse Oximetry [RC] ASDIRECTED UA W/MICROSCOPIC [URIN] Stat Saline Lock Insert [OM.PC] Stat 07/20/16 13:34 Sodium Chloride 0.9% [Saline Flush] 10 ml FLUSH ASDIRECTED PRN Sodium Chloride 0.9% [Saline Flush] 2.5 ml FLUSH ASDIRECTED PRN 07/20/16 13:45 Sodium Chloride 0.9% [Normal Saline] 1,000 ml IV ASDIRECTED 07/20/16 14:45 Pantoprazole [ProTONIX IV] 80 mg Sodium Chloride 0.9% [Normal Saline] 100 ml IV .Continuous 07/20/16 15:05 Patient Status [ADT] Stat
--- NOTE | 2016-07-20 14:06 | CR ---
EXAMINATION: Portable chest radiograph. HISTORY: Shortness of breath. FINDINGS: The trachea is midline. The heart is borderline in size. The cardiomediastinal silhouette is within normal limits. No pulmonary infiltrates, effusions or pneumothorax. There is a chronic interstitial prominence. Old bilateral rib fractures are noted. Median sternotomy wires are present. IMPRESSION: No acute cardiopulmonary process.
[2016-07-20] MEDS ORDERED: Pantoprazole 40 MG Vial IVPUSH ONE (14:35)
[2016-07-20] MEDS ORDERED: Pantoprazole 80 MG in Sodium Chloride 0.9% 100 ML IV SCH (14:45)
[2016-07-20] MEDS: Pantoprazole 80 MG in Sodium Chloride 0.9% 100 ML IV SCH (15:29)
[2016-07-20] MEDS ORDERED: Albuterol 0.083% 2.5 MG/3 ML Neb Soln NEB PRN (16:01)
[2016-07-20] MEDS ORDERED: Acetaminophen 325 MG Tab PO PRN (16:01)
--- NOTE | 2016-07-20 16:38 | PCM.HP ---
H&P History of Present Illness - General Date of Service: 07/20/16 Admit Problem/Dx: Admission Diagnosis/Problem Admission Diagnosis/Problem Hypotension Source of Information: Patient History Limitations: Reports: No limitations - History of Present Illness Initial Comments - Free Text/Narative: 76-year-old male with a past medical history of CABG, aortic valve replacement, and carotid stenosis that presented to the emergency room with a chief complaint of hypotension, dizziness and lightheadedness. Patient was seen in the emergency room yesterday for the same chief complaint but denied admission. At that ER visit an EKG was done which showed a new inverted T wave in V5 but the patient was not having any chest pain. He presents again today with similar symptoms and also having experienced chest pain this morning requiring 2 tabs of nitroglycerin for relief. This chest pain woke the patient from sleep and was nonexertional. Following the nitroglycerin the patient has not had any chest pain. Patient seen by a car groomer, Dr. Portillo, in [place], [place] and just recently saw him this week. The patient is on various antihypertensive medications and he was told to decrease his Ranexa from 500 mg twice a day to once daily dosing. Patient has been compliant with this. He is also taking Imdur and metoprolol succinate 100 mg twice a day. He was told that other than medication changes that he was doing well. The patient does routinely check his blood pressure at home and notes that at times, systolically , he has been between 60-70. He has had systolic blood pressures greater than 110. In checking his blood pressure last night he was systolically between 120 and 130. The patient does not have orthopnea but does note peripheral edema in his lower extremities bilaterally. He did have an echocardiogram done 5 months ago but does not recall the results. He notes that he did fail a chemical stress test a few months ago as well. He has no pain in his legs. He will at times have shortness of breath but denies any hemoptysis. While in the ER the patient denies any chest pain, palpitations, shortness of breath, wheezing, cough, abdominal pain, nausea, vomiting, constipation, diarrhea, headache, dizziness, lightheadedness. - Related Data Allergies/Adverse Reactions: Allergies Allergy/AdvReac Type Severity Reaction Status Date / Time No Known Allergies Allergy Verified 07/19/16 16:12 Home Medications: Home Meds Lisinopril 10 mg PO DAILY 11/17/14 [History] Metoprolol Succinate [Toprol Xl] 100 mg PO BID 11/17/14 [History] Ranolazine [Ranexa] 500 mg PO DAILY 11/17/14 [History] Tiotropium [Spiriva HandiHaler] 18 mcg INH DAILY 11/17/14 [History] Aspirin 325 mg PO ACDINNER 01/28/15 [History] Cholecalciferol (Vitamin D3) [Vitamin D3] 2,000 unit PO DAILY 01/28/15 [History] Multivitamin [Multivitamins] 1 tab PO DAILY 01/28/15 [History] Nitroglycerin 1 tab PO ASDIRECTED PRN 01/28/15 [History] Ascorbic Acid [C-1000] 1,000 mg PO DAILY 07/19/16 [History] Clopidogrel [Plavix] 75 mg PO DAILY 07/19/16 [History] Ezetimibe/Simvastatin [Vytorin 10-80 mg Tablet] 1 tab PO BEDTIME 07/19/16 [ History] Famotidine 20 mg PO DAILY 07/19/16 [History] Fish Oil/Timpson-3 Fatty Acids [Fish Oil 1,000 MG] 1 gm PO DAILY 07/19/16 [History ] Isosorbide Mononitrate [Imdur] 30 mg PO BID 07/19/16 [History] Lutein/Minerals/Vit A,C & E [Ocuvite] 1 tab PO DAILY 07/19/16 [History] Rutin/Hesp/Bioflav/C/Herb#196 [Bioflex] 1 each PO DAILY 07/19/16 [History] Ubidecarenone [Coenzyme Q10] 100 mg PO DAILY 07/19/16 [History] guaiFENesin [Guaifenesin] 400 mg PO Q4H PRN 07/19/16 [History] guaiFENesin [Mucinex] 600 mg PO ASDIRECTED 07/19/16 [History] Past Medical History Cardiovascular History: Reports: Bypass, CAD, Heart valve replacement Respiratory History: Reports: COPD, Other (see below) Other Respiratory History: emphysema Gastrointestinal History: Reports: GERD Genitourinary History: Reports: Prostate disorder Musculoskeletal History: Reports: Other (see below) Other Musculoskeletal History: past rib fx Endocrine/Metabolic History: Reports: None Oncologic (Cancer) History: Reports: Prostate - Infectious Disease History Infectious Disease History: Reports: Chicken pox, Measles, Mumps - Past Surgical History HEENT Surgical History: Reports: Other (see below) Other HEENT Surgeries/Procedures: sinus Cardiovascular Surgical History: Reports: Coronary artery bypass Male Surgical History: Reports: None Social & Family History - Family History Family Medical History: Noncontributory - Tobacco Use Smoking Status *Q: Current Every Day Smoker Years of Tobacco use: 50 Packs/Tins Daily: 0.5 Used Tobacco, but Quit: No Second Hand Smoke Exposure: No - Caffeine Use Caffeine Use: Reports: Coffee Caffeine Use Comment: Drinks 6 cups of coffee in a day. - Alcohol Use Days Per Week of Alcohol Use: 7 Number of Drinks Per Day: 3 Total Drinks Per Week: 21 Date of Last Drink: 07/19/16 Time of Last Drink: 23:00 - Recreational Drug Use Recreational Drug Use: No H&P Review of Systems - Review of Systems: Review Of Systems: See Below General: Reports: no symptoms HEENT: Reports: no symptoms Pulmonary: Reports: No Symptoms Cardiovascular: Reports: edema (Bilateral lower extremity) Gastrointestinal: Reports: No symptoms Genitourinary: Reports: no symptoms Musculoskeletal: Reports: no symptoms Skin: Reports: no symptoms Psychiatric: Reports: no symptoms Neurological: Reports: Dizziness, Other (Lightheadedness) Hematologic/Lymphatic: Reports: no symptoms Immunologic: Reports: no symptoms Exam - Exam Exam: See Below - Vital Signs Vital Signs: Last Vital Signs Temp 99.4 F 07/20/16 13:41 Pulse 68 07/20/16 15:40 Resp 18 07/20/16 15:40 BP 111/64 07/20/16 15:40 Pulse Ox 96 07/20/16 15:40 Weight: 134 lb 0.657 oz - Exam Quality Assessment: DVT prophylaxis (scd's, aspirin, clopidogrel) General: alert, oriented, cooperative HEENT: Hearing intact Neck: supple, trachea midline, 2 Lungs: Normal respiratory effort, Rhonchi (Sevier bilaterally in the lower lung aguirre. Patient does have COPD.) Cardiovascular: regular rate, regular rhythm Abdomen: normal bowel sounds, soft Extremities: edema (+1 pitting edema in the lower extremities bilaterally.). No : calf tenderness Peripheral Pulses: 2+: radial (L), radial (R) Skin: warm, dry, intact Neuro Extensive - Mental Status: alert, oriented x3, normal mood/affect, normal cognition Psychiatric: alert, normal affect, normal mood - Patient Data Result Diagrams: 07/20/16 13:30 07/20/16 13:30 *Q Meaningful Use (ADM) - VTE *Q VTE Criteria *Q: - Stroke *Q Stroke Criteria *Q: - AMI *Q AMI Criteria *Q: - Problem List (1) Elevated brain natriuretic peptide (BNP) level SNOMED Code(s): 620147926 ICD Code: R79.89 - OTHER SPECIFIED ABNORMAL FINDINGS OF BLOOD CHEMISTRY Status: Acute Current Visit: Yes (2) Anemia SNOMED Code(s): 516918870 ICD Code: D64.9 - ANEMIA, UNSPECIFIED Status: Acute Current Visit: Yes Qualifiers: Anemia type: unspecified type Qualified Code(s): D64.9 - Anemia, unspecified (3) Hypotension SNOMED Code(s): 62714117 ICD Code: I95.9 - HYPOTENSION, UNSPECIFIED Status: Acute Current Visit: Yes Qualifiers: Hypotension type: unspecified hypotension type Qualified Code(s): I95.9 - Hypotension, unspecified Problem List Initiated/Reviewed/Updated: Yes Orders Last 24hrs: Active Orders 24 hr Category Date Time Status Patient Status [ADT] Routine ADT 07/20/16 16:01 Active Antiembolic Devices [RC] PER UNIT ROUTINE Care 07/20/16 16:11 Active Communication Order [RC] ROUTINE Care 07/20/16 16:18 Active Height and Weight [RC] DAILY Care 07/20/16 16:01 Active Intake and Output [RC] QSHIFT Care 07/20/16 16:09 Active Notify Provider Vital Signs [RC] ASDIRECTED Care 07/20/16 16:09 Active Orthostatic Vital Signs [RC] ASDIRECTED Care 07/20/16 15:49 Active Oxygen Therapy [RC] PRN Care 07/20/16 16:01 Active Pulse Oximetry [RC] PRN Care 07/20/16 16:07 Active RT Aerosol Therapy [RC] ASDIRECTED Care 07/20/16 16:11 Active Up ad Olivia [RC] ASDIRECTED Care 07/20/16 16:01 Active VTE/DVT Education [RC] PER UNIT ROUTINE Care 07/20/16 16:01 Active Vital Signs [RC] Q4H Care 07/20/16 16:01 Active PT Evaluation and Treatment [CONS] Routine Cons 07/20/16 16:01 Active Heart Healthy Diet [DIET] Diet 07/20/16 Breakfast Active BASIC METABOLIC PANEL,BMP [CHEM] AM Lab 07/21/16 05:11 Ordered BASIC METABOLIC PANEL,BMP [CHEM] AM Lab 07/22/16 05:11 Ordered CBC WITH AUTO DIFF [HEME] AM Lab 07/21/16 05:11 Ordered CBC WITH AUTO DIFF [HEME] AM Lab 07/22/16 05:11 Ordered TROPONIN I [CHEM] Q6H Lab 07/20/16 19:30 Ordered TROPONIN I [CHEM] Q6H Lab 07/21/16 01:30 Ordered Acetaminophen [Tylenol] Med 07/20/16 16:01 Active 650 mg PO Q4H PRN Albuterol [Proventil Neb Soln] Med 07/20/16 16:01 Active 2.5 mg NEB Q2H PRN Ascorbic Acid [Vitamin C] Med 07/21/16 09:00 Active 1,000 mg PO DAILY Aspirin Med 07/20/16 17:00 Active 325 mg PO ACDINNER Beta-Carotene(A) w/C & E/Min [Prosight] Med 07/21/16 09:00 Active 1 tab PO DAILY Cholecalciferol (Vitamin D3) [Vitamin D3] Med 07/21/16 09:00 Active 2,000 units PO DAILY Clopidogrel [Plavix] Med 07/21/16 09:00 Active 75 mg PO DAILY Ezetimibe/Simvastatin [Vytorin 10-80 mg Tablet] Med 07/20/16 21:00 Ordered 1 tab PO BEDTIME Famotidine [Pepcid] Med 07/21/16 09:00 Ordered 20 mg PO DAILY Fish Oil/Timpson-3 Fatty Acids [Fish Oil] Med 07/21/16 09:00 Ordered 1 gm PO DAILY Multivitamin [Multivitamins] Med 07/21/16 09:00 Ordered 1 tab PO DAILY Pantoprazole [ProTONIX IV] 80 mg Med 07/20/16 15:30 Active Sodium Chloride 0.9% [Normal Saline] 100 ml IV Q10H Patient's Own Medication [Ptom] Med 07/21/16 09:00 Active 1 each PO DAILY Patient's Own Medication [Ptom] Med 07/21/16 09:00 Active 1 each PO DAILY Tiotropium [Spiriva HandiHaler] Med 07/21/16 09:00 Ordered 18 mcg INH DAILY guaiFENesin [Mucinex] Med 07/20/16 16:15 Ordered 600 mg PO ASDIRECTED guaiFENesin [Mucus Relief] Med 07/20/16 16:12 Ordered 400 mg PO Q4H PRN Sequential Compression Device [OM.PC] Per Unit Routine Oth 07/20/16 16:09 Ordered Resuscitation Status Routine Resus Stat 07/20/16 16:01 Ordered Medication Orders Acetaminophen (Tylenol) 650 mg PO Q4H PRN PRN Reason: Pain (Mild 1-3)/fever Albuterol (Proventil Neb Soln) 2.5 mg NEB Q2H PRN PRN Reason: Shortness Of Breath/wheezing Ascorbic Acid (Vitamin C) 1,000 mg PO DAILY [facility] Aspirin (Aspirin) 325 mg PO ACDINNER [facility] Cholecalciferol (Vitamin D3) 2,000 units PO DAILY [facility] Clopidogrel Bisulfate (Plavix) 75 mg PO DAILY [facility] Famotidine (Pepcid) 20 mg PO DAILY [facility] Fish Oil (Fish Oil) 1 gm PO DAILY [facility] Guaifenesin (Mucus Relief) 400 mg PO Q4H PRN PRN Reason: Congestion Guaifenesin (Mucinex) 600 mg PO ASDIRECTED [facility] Sodium Chloride (Normal Saline) 1,000 mls @ 50 mls/hr IV ASDIRECTED [facility] Last Admin: 07/20/16 13:51 Dose: 50 mls/hr Pantoprazole Sodium 80 mg/ (Sodium Chloride) 100 mls @ 10 mls/hr IV Q10H [facility] Last Admin: 07/20/16 15:29 Dose: 10 mls/hr Multivitamins/Minerals (Prosight) 1 tab PO DAILY [facility] Non-Formulary Medication (Ezetimibe/Simvastatin [Vytorin 10-80 Mg Tablet]) 1 tab PO BEDTIME [facility] Non-Formulary Medication (Multivitamin [Multivitamins]) 1 tab PO DAILY [facility] Rutin/Hesp/Bioflav/C /Herb#196 [Bioflex] 1 Each 1 each PO DAILY [facility] Ubidecarenone [ (Coenzyme Q10] 100 Mg) 1 each PO DAILY [facility] Sodium Chloride (Saline Flush) 10 ml FLUSH ASDIRECTED PRN PRN Reason: Keep Vein Open Last Admin: 07/20/16 13:51 Dose: 10 ml Sodium Chloride (Saline Flush) 2.5 ml FLUSH ASDIRECTED PRN PRN Reason: Keep Vein Open Last Admin: 07/20/16 13:51 Dose: 2.5 ml Tiotropium [place] (Spiriva Handihaler) 18 mcg INH DAILY [facility] Assessment/Plan Comment:: 76-year-old male admitted with hypotension with resultant dizziness and lightheadedness. #1. Hypotension with dizziness and lightheadedness: -Patient is taking metoprolol, Imdur, lisinopril and Ranexa. Ranexa does have a side effect profile of hypotension and orthostatic hypotension. All of these medications will be held. They can be restarted pending the patient's blood pressure response. -Orthostatic vital signs will be obtained. -PT has been consulted. -Patient will be monitored on telemetry. -IV fluids are not being given secondary to the patient's elevated BNP and lower extremity edema. He is tolerating oral intake. -Initial troponin was negative. We will trend troponins. #2. Elevated BNP with bilateral lower extremity edema: -BNP is 1250. Echocardiogram was done 5 months ago. Trying to obtain results and other records from patient's car groomer, Dr. Portillo, in [place], [place]. -Patient is stable on room air with no cough appreciated. He will not be diuresed at this time secondary to his current diagnosis of hypotension. We will continue to monitor the patient's lower extremity peripheral edema. Disposition: 1-2 days pending improvement.
[2016-07-20] MEDS: Aspirin 325 MG Tab PO SCH (16:53)
[2016-07-20] MEDS ORDERED: Alum Hydrox/Mag Hydrox/Simeth 15 ML, Lidocaine 2% 5 ML PO ONE ×2 (20:00)
[2016-07-20] MEDS ORDERED: Simvastatin 40 MG Tab PO SCH (21:00)
[2016-07-20] MEDS ORDERED: SIMVASTATIN PO SCH (21:00)
[2016-07-20] MEDS ORDERED: EZETIMIBE PO SCH (21:00)
[2016-07-20] MEDS ORDERED: Ezetimibe 10 MG Tab PO SCH (21:00)
[2016-07-20] MEDS: EZETIMIBE PO SCH (23:40)
[2016-07-20] MEDS: SIMVASTATIN PO SCH (23:40)
[2016-07-21] MEDS: Pantoprazole 80 MG in Sodium Chloride 0.9% 100 ML IV SCH ×3 (01:42→22:41)
--- NOTE | 2016-07-21 03:34 | PCM.SN ---
- Free Text/Narrative Note: Patient's third set of troponins increased to 1.13. Patient's had chest pain yesterday evening that has resolved. I spoke with Dr. Cline in [facility] and they recommended continued medical treatment for ischemic event as he felt intervention was not needed. Will continue metoprolol, imdur but hold lisinopril due to hypotension. We will also start lovenox.
[2016-07-21] MEDS: Enoxaparin 60 MG/0.6 ML Syringe SUBCUT SCH ×2 (04:21→15:12)
[2016-07-21] MEDS: Isosorbide Mononitrate 60 MG Tab.ER PO SCH ×2 (09:59→22:08)
[2016-07-21] MEDS: Clopidogrel 75 MG Tab PO SCH (09:59)
[2016-07-21] MEDS: Famotidine 20 MG Tab PO SCH (10:00)
[2016-07-21] MEDS: Metoprolol Succinate 100 MG Tab.ER PO SCH ×2 (10:00→22:03)
[2016-07-21] MEDS: Multivitamins with Iron/Calcium/Folic Acid/Minerals Tab PO SCH (10:01)
[2016-07-21] MEDS: Beta-Carotene (Vitamin A) w/Vitamin C & E plus Minerals Tab PO SCH (10:01)
[2016-07-21] MEDS: Cholecalciferol (Vitamin D3) 1,000 Unit Tab PO SCH (10:02)
[2016-07-21] MEDS: Ascorbic Acid 500 MG Tab PO SCH (10:02)
[2016-07-21] MEDS: Fish Oil/Omega-3 Fatty Acids 1 Gm Cap PO SCH (10:02)
[2016-07-21] MEDS: Ubidecarenone [Coenzyme Q10] 100 MG PO SCH (10:03)
[2016-07-21] MEDS: [UNRECOGNIZED DRUG - OTHER] PO SCH (10:06)
[2016-07-21] MEDS: Tiotropium Inhaler 18 MCG Inhalation Powder Cap Kit of 5 INH SCH (10:19)
--- NOTE | 2016-07-21 12:32 | PCM.PN ---
- Review of Systems Systems Review Comment:: patient denies any chest pain. - Patient Data Vitals - most recent: Last Vital Signs Temp 36.9 C 07/21/16 07:00 Pulse 66 07/21/16 10:00 Resp 18 07/21/16 07:00 BP 118/66 07/21/16 10:00 Pulse Ox 94 L 07/21/16 07:00 Orthostatic Blood Pressure [ 113/69 Supine] Orthostatic Blood Pressure [ 118/60 Standing] Orthostatic Blood Pressure [ 125/74 Sitting] Weight - most recent: 63.6 kg I&O - last 24 hours: Intake & Output 07/20/16 07/21/16 07/21/16 22:59 06:59 14:59 Intake Total 100 100 Output Total 450 Balance -350 100 Lab Results last 24 hrs: Laboratory Results - last 24 hr 07/20/16 07/21/16 07/21/16 Range/Units 19:38 01:25 01:25 WBC 5.80 (4.0-11.0) K/uL RBC 3.04 L (4.50-5.90) M/uL Hgb 8.9 L (13.0-17.0) g/dL Hct 25.7 L (38.0-50.0) % MCV 84.5 (80.0-98.0) fL MCH 29.3 (27.0-32.0) pg MCHC 34.6 (31.0-37.0) g/dL RDW Std Deviation 54.8 (28.0-62.0) fl RDW Coeff of Trae 18 H (11.0-15.0) % Plt Count 252 (150-400) K/uL MPV 8.50 (7.40-12.00) fL Neut % (Auto) 54.3 (48.0-80.0) % Lymph % (Auto) 28.8 (16.0-40.0) % [place] % (Auto) 15.7 H (0.0-15.0) % Eos % (Auto) 1.0 (0.0-7.0) % Baso % (Auto) 0.2 (0.0-1.5) % Neut # (Auto) 3.2 (1.4-5.7) K/uL Lymph # (Auto) 1.7 (0.6-2.4) K/uL [place] # (Auto) 0.9 H (0.0-0.8) K/uL Eos # (Auto) 0.1 (0.0-0.7) K/uL Baso # (Auto) 0.0 (0.0-0.1) K/uL Nucleated RBC % 0.0 /100WBC Nucleated RBCs # 0 K/uL Sodium 132 L (136-146) mmol/L Potassium 4.6 (3.5-5.1) mmol/L Chloride 102 (98-110) mmol/L Carbon Dioxide 20 L (21-31) mmol/L BUN 26 H (6.0-23.0) mg/dL Creatinine 1.3 (0.6-1.5) mg/dL Est Cr Clr Drug Dosing 37.61 mL/min Estimated GFR (MDRD) 53.8 ml/min Glucose 103 (60-110) mg/dL Calcium 8.6 L (8.8-10.8) mg/dL Troponin I < 0.10 (0.0-0.29) NG/ML Urine Color Urine Appearance Urine pH (5.0-8.0) Ur Specific [place] (1.001-1.035) Urine Protein (NEGATIVE) mg/dL Urine Glucose (UA) (NEGATIVE) mg/dL Urine Ketones (NEGATIVE) mg/dL Urine Occult Blood (NEGATIVE) Urine Nitrite (NEGATIVE) Urine Bilirubin (NEGATIVE) Urine Urobilinogen (<2.0) EU/dL Ur Leukocyte Esterase (NEGATIVE) Urine RBC (0-2/HPF) Urine WBC (0-5/HPF) Ur Epithelial Cells (NONE-FEW) Urine Bacteria (NEGATIVE) 07/21/16 07/21/16 07/21/16 Range/Units 01:25 04:20 10:41 WBC (4.0-11.0) K/uL RBC (4.50-5.90) M/uL Hgb (13.0-17.0) g/dL Hct (38.0-50.0) % MCV (80.0-98.0) fL MCH (27.0-32.0) pg MCHC (31.0-37.0) g/dL RDW Std Deviation (28.0-62.0) fl RDW Coeff of Trae (11.0-15.0) % Plt Count (150-400) K/uL MPV (7.40-12.00) fL Neut % (Auto) (48.0-80.0) % Lymph % (Auto) (16.0-40.0) % [place] % (Auto) (0.0-15.0) % Eos % (Auto) (0.0-7.0) % Baso % (Auto) (0.0-1.5) % Neut # (Auto) (1.4-5.7) K/uL Lymph # (Auto) (0.6-2.4) K/uL [place] # (Auto) (0.0-0.8) K/uL Eos # (Auto) (0.0-0.7) K/uL Baso # (Auto) (0.0-0.1) K/uL Nucleated RBC % /100WBC Nucleated RBCs # K/uL Sodium (136-146) mmol/L Potassium (3.5-5.1) mmol/L Chloride (98-110) mmol/L Carbon Dioxide (21-31) mmol/L BUN (6.0-23.0) mg/dL Creatinine (0.6-1.5) mg/dL Est Cr Clr Drug Dosing mL/min Estimated GFR (MDRD) ml/min Glucose (60-110) mg/dL Calcium (8.8-10.8) mg/dL Troponin I 1.13 H* 2.45 H* (0.0-0.29) NG/ML Urine Color YELLOW Urine Appearance CLEAR Urine pH 5.5 (5.0-8.0) Ur Specific [place] 1.025 (1.001-1.035) Urine Protein NEGATIVE (NEGATIVE) mg/dL Urine Glucose (UA) NEGATIVE (NEGATIVE) mg/dL Urine Ketones NEGATIVE (NEGATIVE) mg/dL Urine Occult Blood NEGATIVE (NEGATIVE) Urine Nitrite NEGATIVE (NEGATIVE) Urine Bilirubin NEGATIVE (NEGATIVE) Urine Urobilinogen 0.2 (<2.0) EU/dL Ur Leukocyte Esterase NEGATIVE (NEGATIVE) Urine RBC NONE SEEN (0-2/HPF) Urine WBC 0-2 (0-5/HPF) Ur Epithelial Cells RARE (NONE-FEW) Urine Bacteria RARE (NEGATIVE) Med Orders - Current: Current Medications Acetaminophen (Tylenol) 650 mg PO Q4H PRN PRN Reason: Pain (Mild 1-3)/fever Last Admin: 07/20/16 17:47 Dose: 650 mg Albuterol (Proventil Neb Soln) 2.5 mg NEB Q2H PRN PRN Reason: Shortness Of Breath/wheezing Ascorbic Acid (Vitamin C) 1,000 mg PO DAILY [facility] Last Admin: 07/21/16 10:02 Dose: 1,000 mg Aspirin (Aspirin) 325 mg PO ACDINNER [facility] Last Admin: 07/20/16 16:53 Dose: 325 mg Cholecalciferol (Vitamin D3) 2,000 units PO DAILY [facility] Last Admin: 07/21/16 10:02 Dose: 2,000 units Clopidogrel Bisulfate (Plavix) 75 mg PO DAILY [facility] Last Admin: 07/21/16 09:59 Dose: 75 mg Enoxaparin Sodium (Lovenox) 60 mg SUBCUT Q12H [facility] Last Admin: 07/21/16 04:21 Dose: Not Given Famotidine (Pepcid) 20 mg PO DAILY [facility] Last Admin: 07/21/16 10:00 Dose: 20 mg Fish Oil (Fish Oil) 1 gm PO DAILY [facility] Last Admin: 07/21/16 10:02 Dose: 1 gm Guaifenesin (Mucus Relief) 400 mg PO Q4H PRN PRN Reason: Congestion Guaifenesin (Mucinex) 600 mg PO ASDIRECTED [facility] Pantoprazole Sodium 80 mg/ (Sodium Chloride) 100 mls @ 10 mls/hr IV Q10H [facility] Last Admin: 07/21/16 12:10 Dose: 10 mls/hr Isosorbide Mononitrate (Imdur) 60 mg PO BID [facility] Last Admin: 07/21/16 09:59 Dose: 60 mg Metoprolol Succinate (Toprol Xl) 100 mg PO BID [facility] Last Admin: 07/21/16 10:00 Dose: 100 mg Multivitamins/Minerals (Prosight) 1 tab PO DAILY [facility] Last Admin: 07/21/16 10:01 Dose: 1 tab Multivitamins/Minerals (Thera M Plus) 1 tab PO DAILY [facility] Last Admin: 07/21/16 10:01 Dose: 1 tab Rutin/Hesp/Bioflav/C /Herb#196 [Bioflex] 1 Each 1 each PO DAILY [facility] Last Admin: 07/21/16 10:06 Dose: Not Given Ubidecarenone [ (Coenzyme Q10] 100 Mg) 1 each PO DAILY [facility] Last Admin: 07/21/16 10:03 Dose: Not Given Ezetimibe/Simvastatin [Vytorin 10-80 Mg Tablet] 1 Tab *Own Med* 1 each PO BEDTIME [facility] Last Admin: 07/20/16 23:40 Dose: Not Given Sodium Chloride (Saline Flush) 10 ml FLUSH ASDIRECTED PRN PRN Reason: Keep Vein Open Last Admin: 07/20/16 13:51 Dose: 10 ml Sodium Chloride (Saline Flush) 2.5 ml FLUSH ASDIRECTED PRN PRN Reason: Keep Vein Open Last Admin: 07/20/16 13:51 Dose: 2.5 ml Tiotropium [place] (Spiriva Handihaler) 18 mcg INH DAILY [facility] Last Admin: 07/21/16 10:19 Dose: 1 cap Discontinued Medications Aspirin (Aspirin) 324 mg PO ONETIME ONE Stop: 07/20/16 13:48 Last Admin: 07/20/16 13:51 Dose: 324 mg Al Hydroxide/Mg Hydroxide 15 (ml/ Lidocaine HCl 5 ml) 0 ml PO ONETIME ONE Stop: 07/20/16 20:01 Last Admin: 07/20/16 21:00 Dose: 20 each Ezetimibe (Zetia) 10 mg PO BEDTIME [facility] Last Admin: 07/20/16 21:05 Dose: Not Given Sodium Chloride (Normal Saline) 1,000 mls @ 50 mls/hr IV ASDIRECTED [facility] Last Admin: 07/20/16 13:51 Dose: 50 mls/hr Pantoprazole Sodium 80 mg/ (Sodium Chloride) 100 mls @ 10 mls/hr IV .Continuous [facility] Pantoprazole Sodium (Protonix Iv) 80 mg IVPUSH .BOLUS ONE Stop: 07/20/16 14:36 Last Admin: 07/20/16 14:49 Dose: 80 mg Simvastatin (Zocor) 80 mg PO BEDTIME [facility] Last Admin: 07/20/16 21:06 Dose: Not Given - Exam General: alert, oriented Lungs: Clear to auscultation, Normal respiratory effort Cardiovascular: Regular Rate, Regular Rhythm Abdomen: bowel sounds present, soft, no tenderness, no distension Extremities: no edema Skin: warm, dry, intact - Problem List Review Problem List Initiated/Reviewed/Updated: Yes - My Orders Last 24 Hours: My Active Orders 07/21/16 03:30 Enoxaparin [Lovenox] 60 mg SUBCUT Q12H 07/21/16 03:39 Admission Status [Patient Status] [ADT] Routine 07/21/16 09:00 Isosorbide Mononitrate [Imdur] 60 mg PO BID Metoprolol Succinate [Toprol XL] 100 mg PO BID - Plan Plan:: 76-year-old male admitted with hypotension with resultant dizziness and lightheadedness. Unstable angina vs NSTEMI: troponin has bumped. Will treat with plavix, ASA, metoprolol, and imdur, holding lisinopril due to history of hypotension. Patient is refusing anticoagualtion as he does not want the risk of bleeding. He understands that lovenox was recommended by the equal opportunity specialist last night for treatment of possible acute coronary sydnrome.
[2016-07-21] MEDS: Aspirin 325 MG Tab PO SCH (17:09)
[2016-07-21] MEDS: EZETIMIBE PO SCH (22:08)
[2016-07-21] MEDS: guaiFENesin 600 MG Tab.ER PO SCH (22:08)
[2016-07-21] MEDS: SIMVASTATIN PO SCH (22:08)
[2016-07-21] MEDS ORDERED: Aspirin 81 MG Tab.Chew PO ONE (23:35)
[2016-07-22] MEDS: Enoxaparin 60 MG/0.6 ML Syringe SUBCUT SCH ×2 (04:12→15:15)
[2016-07-22 08:32] LABS: CHLORIDE,CL 98 mmol/L (98-110); SODIUM,NA 129 mmol/L (136-146)
[2016-07-22] MEDS: Isosorbide Mononitrate 60 MG Tab.ER PO SCH (08:45)
[2016-07-22] MEDS: guaiFENesin 600 MG Tab.ER PO SCH ×2 (08:45→20:53)
[2016-07-22] MEDS: Fish Oil/Omega-3 Fatty Acids 1 Gm Cap PO SCH (08:45)
[2016-07-22] MEDS: Clopidogrel 75 MG Tab PO SCH (08:46)
[2016-07-22] MEDS: Metoprolol Succinate 100 MG Tab.ER PO SCH ×2 (08:46→21:55)
[2016-07-22] MEDS: Famotidine 20 MG Tab PO SCH (08:46)
[2016-07-22] MEDS: Cholecalciferol (Vitamin D3) 1,000 Unit Tab PO SCH (08:47)
[2016-07-22] MEDS: Beta-Carotene (Vitamin A) w/Vitamin C & E plus Minerals Tab PO SCH (08:47)
[2016-07-22] MEDS: Ascorbic Acid 500 MG Tab PO SCH (08:47)
[2016-07-22] MEDS: Multivitamins with Iron/Calcium/Folic Acid/Minerals Tab PO SCH (08:47)
[2016-07-22] MEDS: [UNRECOGNIZED DRUG - OTHER] PO SCH (08:54)
[2016-07-22] MEDS: Ubidecarenone [Coenzyme Q10] 100 MG PO SCH (08:54)
[2016-07-22] MEDS: Pantoprazole 80 MG in Sodium Chloride 0.9% 100 ML IV SCH (09:24)
--- NOTE | 2016-07-22 11:15 | PCM.PN ---
- Review of Systems Systems Review Comment:: denies any chest pain - Patient Data Vitals - most recent: Last Vital Signs Temp 36.9 C 07/22/16 08:00 Pulse 68 07/22/16 08:46 Resp 20 07/22/16 08:00 BP 128/66 07/22/16 08:46 Pulse Ox 96 07/22/16 08:00 Orthostatic Blood Pressure [ 97/49 Supine] Orthostatic Blood Pressure [ 95/60 Standing] Orthostatic Blood Pressure [ 102/62 Sitting] Weight - most recent: 62.5 kg I&O - last 24 hours: Intake & Output 07/21/16 07/22/16 07/22/16 22:59 06:59 14:59 Intake Total 855 358 Output Total 2525 975 Balance -420 -617 Lab Results last 24 hrs: Laboratory Results - last 24 hr 07/21/16 07/22/16 07/22/16 Range/Units 16:15 00:15 08:01 WBC 5.06 (4.0-11.0) K/uL RBC 3.41 L (4.50-5.90) M/uL Hgb 9.8 L (13.0-17.0) g/dL Hct 29.4 L (38.0-50.0) % MCV 86.2 (80.0-98.0) fL MCH 28.7 (27.0-32.0) pg MCHC 33.3 (31.0-37.0) g/dL RDW Std Deviation 55.4 (28.0-62.0) fl RDW Coeff of Trae 18 H (11.0-15.0) % Plt Count 286 (150-400) K/uL MPV 8.50 (7.40-12.00) fL Neut % (Auto) 58.5 (48.0-80.0) % Lymph % (Auto) 23.9 (16.0-40.0) % [place] % (Auto) 14.6 (0.0-15.0) % Eos % (Auto) 2.8 (0.0-7.0) % Baso % (Auto) 0.2 (0.0-1.5) % Neut # (Auto) 3.0 (1.4-5.7) K/uL Lymph # (Auto) 1.2 (0.6-2.4) K/uL [place] # (Auto) 0.7 (0.0-0.8) K/uL Eos # (Auto) 0.1 (0.0-0.7) K/uL Baso # (Auto) 0.0 (0.0-0.1) K/uL Nucleated RBC % 0.0 /100WBC Nucleated RBCs # 0 K/uL Sodium (136-146) mmol/L Potassium (3.5-5.1) mmol/L Chloride (98-110) mmol/L Carbon Dioxide (21-31) mmol/L BUN (6.0-23.0) mg/dL Creatinine (0.6-1.5) mg/dL Est Cr Clr Drug Dosing mL/min Estimated GFR (MDRD) ml/min Glucose (60-110) mg/dL Calcium (8.8-10.8) mg/dL Troponin I 3.02 H* 1.79 H* (0.0-0.29) NG/ML 07/22/16 07/22/16 Range/Units 08:01 08:01 WBC (4.0-11.0) K/uL RBC (4.50-5.90) M/uL Hgb (13.0-17.0) g/dL Hct (38.0-50.0) % MCV (80.0-98.0) fL MCH (27.0-32.0) pg MCHC (31.0-37.0) g/dL RDW Std Deviation (28.0-62.0) fl RDW Coeff of Trae (11.0-15.0) % Plt Count (150-400) K/uL MPV (7.40-12.00) fL Neut % (Auto) (48.0-80.0) % Lymph % (Auto) (16.0-40.0) % [place] % (Auto) (0.0-15.0) % Eos % (Auto) (0.0-7.0) % Baso % (Auto) (0.0-1.5) % Neut # (Auto) (1.4-5.7) K/uL Lymph # (Auto) (0.6-2.4) K/uL [place] # (Auto) (0.0-0.8) K/uL Eos # (Auto) (0.0-0.7) K/uL Baso # (Auto) (0.0-0.1) K/uL Nucleated RBC % /100WBC Nucleated RBCs # K/uL Sodium 129 L (136-146) mmol/L Potassium 4.7 (3.5-5.1) mmol/L Chloride 98 (98-110) mmol/L Carbon Dioxide 22 (21-31) mmol/L BUN 13 (6.0-23.0) mg/dL Creatinine 1.0 (0.6-1.5) mg/dL Est Cr Clr Drug Dosing 48.90 mL/min Estimated GFR (MDRD) > 60.0 ml/min Glucose 182 H (60-110) mg/dL Calcium 8.7 L (8.8-10.8) mg/dL Troponin I 1.05 H* (0.0-0.29) NG/ML Med Orders - Current: Current Medications Acetaminophen (Tylenol) 650 mg PO Q4H PRN PRN Reason: Pain (Mild 1-3)/fever Last Admin: 07/20/16 17:47 Dose: 650 mg Albuterol (Proventil Neb Soln) 2.5 mg NEB Q2H PRN PRN Reason: Shortness Of Breath/wheezing Ascorbic Acid (Vitamin C) 1,000 mg PO DAILY [facility] Last Admin: 07/22/16 08:47 Dose: 1,000 mg Aspirin (Aspirin) 325 mg PO ACDINNER [facility] Last Admin: 07/21/16 17:09 Dose: Not Given Cholecalciferol (Vitamin D3) 2,000 units PO DAILY [facility] Last Admin: 07/22/16 08:47 Dose: 2,000 units Clopidogrel Bisulfate (Plavix) 75 mg PO DAILY [facility] Last Admin: 07/22/16 08:46 Dose: 75 mg Enoxaparin Sodium (Lovenox) 60 mg SUBCUT Q12H [facility] Last Admin: 07/22/16 04:12 Dose: Not Given Famotidine (Pepcid) 20 mg PO DAILY [facility] Last Admin: 07/22/16 08:46 Dose: 20 mg Fish Oil (Fish Oil) 1 gm PO DAILY [facility] Last Admin: 07/22/16 08:45 Dose: 1 gm Guaifenesin (Mucus Relief) 400 mg PO Q4H PRN PRN Reason: Congestion Guaifenesin (Mucinex) 600 mg PO ASDIRECTED [facility] Last Admin: 07/22/16 08:45 Dose: 600 mg Isosorbide Mononitrate (Imdur) 60 mg PO DAILY [facility] Metoprolol Succinate (Toprol Xl) 100 mg PO BID [facility] Last Admin: 07/22/16 08:46 Dose: 100 mg Multivitamins/Minerals (Prosight) 1 tab PO DAILY [facility] Last Admin: 07/22/16 08:47 Dose: 1 tab Multivitamins/Minerals (Thera M Plus) 1 tab PO DAILY [facility] Last Admin: 07/22/16 08:47 Dose: 1 tab Rutin/Hesp/Bioflav/C /Herb#196 [Bioflex] 1 Each 1 each PO DAILY [facility] Last Admin: 07/22/16 08:54 Dose: 1 each Ubidecarenone [ (Coenzyme Q10] 100 Mg) 1 each PO DAILY [facility] Last Admin: 07/22/16 08:54 Dose: 1 each Ezetimibe/Simvastatin [Vytorin 10-80 Mg Tablet] 1 Tab *Own Med* 1 each PO BEDTIME [facility] Last Admin: 07/21/16 22:08 Dose: 1 each Sodium Chloride (Saline Flush) 10 ml FLUSH ASDIRECTED PRN PRN Reason: Keep Vein Open Last Admin: 07/20/16 13:51 Dose: 10 ml Sodium Chloride (Saline Flush) 2.5 ml FLUSH ASDIRECTED PRN PRN Reason: Keep Vein Open Last Admin: 07/20/16 13:51 Dose: 2.5 ml Tiotropium [place] (Spiriva Handihaler) 18 mcg INH DAILY [facility] Last Admin: 07/21/16 10:19 Dose: 1 cap Discontinued Medications Aspirin (Aspirin) 324 mg PO ONETIME ONE Stop: 07/20/16 13:48 Last Admin: 07/20/16 13:51 Dose: 324 mg Aspirin (Aspirin) 81 mg PO ONETIME ONE Stop: 07/21/16 23:36 Last Admin: 07/22/16 00:29 Dose: 81 mg Al Hydroxide/Mg Hydroxide 15 (ml/ Lidocaine HCl 5 ml) 0 ml PO ONETIME ONE Stop: 07/20/16 20:01 Last Admin: 07/20/16 21:00 Dose: 20 each Ezetimibe (Zetia) 10 mg PO BEDTIME [facility] Last Admin: 07/20/16 21:05 Dose: Not Given Sodium Chloride (Normal Saline) 1,000 mls @ 50 mls/hr IV ASDIRECTED [facility] Last Admin: 07/20/16 13:51 Dose: 50 mls/hr Pantoprazole Sodium 80 mg/ (Sodium Chloride) 100 mls @ 10 mls/hr IV .Continuous [facility] Pantoprazole Sodium 80 mg/ (Sodium Chloride) 100 mls @ 10 mls/hr IV Q10H [facility] Last Admin: 07/22/16 09:24 Dose: 10 mls/hr Isosorbide Mononitrate (Imdur) 60 mg PO BID [facility] Last Admin: 07/22/16 08:45 Dose: 60 mg Pantoprazole Sodium (Protonix Iv) 80 mg IVPUSH .BOLUS ONE Stop: 07/20/16 14:36 Last Admin: 07/20/16 14:49 Dose: 80 mg Simvastatin (Zocor) 80 mg PO BEDTIME [facility] Last Admin: 07/20/16 21:06 Dose: Not Given - Exam General: alert, oriented Lungs: Clear to auscultation, Normal respiratory effort Cardiovascular: Regular Rate, Regular Rhythm Abdomen: bowel sounds present, soft, no tenderness, no distension Extremities: no edema - Problem List Review Problem List Initiated/Reviewed/Updated: Yes - My Orders Last 24 Hours: My Active Orders 07/23/16 05:11 BASIC METABOLIC PANEL,BMP [CHEM] AM CBC WITH AUTO DIFF [HEME] AM TROPONIN I [CHEM] AM 07/23/16 09:00 Isosorbide Mononitrate [Imdur] 60 mg PO DAILY 07/24/16 05:11 BASIC METABOLIC PANEL,BMP [CHEM] AM CBC WITH AUTO DIFF [HEME] AM - Plan Plan:: 76-year-old male admitted with hypotension with resultant dizziness and lightheadedness. Unstable angina vs NSTEMI: troponin has bumped. Will treat with plavix, ASA, metoprolol, and imdur Patient refused anticoagualtion. Hypotension: will decrease imdur to daily dosing, patient did not taking evening dose last night due to blood pressures of 109 systolic. will monitor another day to insure stable blood pressures and stable angina.
[2016-07-22] MEDS: Tiotropium Inhaler 18 MCG Inhalation Powder Cap Kit of 5 INH SCH (11:40)
[2016-07-22] MEDS: SIMVASTATIN PO SCH (20:53)
[2016-07-22] MEDS: EZETIMIBE PO SCH (20:53)
[2016-07-22] MEDS: Aspirin 81 MG Tab.Chew PO SCH (20:54)
[2016-07-23] MEDS: Enoxaparin 60 MG/0.6 ML Syringe SUBCUT SCH (02:39)
[2016-07-23 05:13] LABS: CHLORIDE,CL 96 mmol/L (98-110); SODIUM,NA 127 mmol/L (136-146)
[2016-07-23] MEDS ORDERED: EZETIMIBE PO SCH (08:03)
[2016-07-23] MEDS ORDERED: SIMVASTATIN PO SCH (08:03)
[2016-07-23] MEDS ORDERED: Isosorbide Mononitrate 60 MG Tab.ER PO SCH (09:00)
[2016-07-23] MEDS: Multivitamins with Iron/Calcium/Folic Acid/Minerals Tab PO SCH (09:13)
[2016-07-23] MEDS: Aspirin 81 MG Tab.Chew PO SCH (09:13)
[2016-07-23] MEDS: Clopidogrel 75 MG Tab PO SCH (09:13)
[2016-07-23] MEDS: Beta-Carotene (Vitamin A) w/Vitamin C & E plus Minerals Tab PO SCH (09:13)
[2016-07-23] MEDS: Ascorbic Acid 500 MG Tab PO SCH (09:14)
[2016-07-23] MEDS: Metoprolol Succinate 100 MG Tab.ER PO SCH (09:14)
[2016-07-23] MEDS: Famotidine 20 MG Tab PO SCH (09:15)
[2016-07-23] MEDS: Fish Oil/Omega-3 Fatty Acids 1 Gm Cap PO SCH ×2 (09:15→09:26)
[2016-07-23] MEDS: Cholecalciferol (Vitamin D3) 1,000 Unit Tab PO SCH (09:15)
[2016-07-23] MEDS: [UNRECOGNIZED DRUG - OTHER] PO SCH (09:20)
[2016-07-23] MEDS: Ubidecarenone [Coenzyme Q10] 100 MG PO SCH (09:20)
[2016-07-23] MEDS: guaiFENesin 600 MG Tab.ER PO SCH (09:50)
--- NOTE | 2016-07-23 11:14 | PCM.DCSUM1 ---
Discharge Summary - Hospital Course Brief History: This 76 yearold male with a pmh of CABG, aortic valve replacement , and carotid stenosis that presented to the ED with a chief complaint of hypotension, dizziness and lightheadedness. Patient was seen in the ED the day prior for the same chief complaint but he denied admission. At that ER visit an EKG was done which showed a new inverted T wave in V5 but the patient was not having any chest pain. He presented again with similar symptoms and also having experienced chest pain this morning requiring 2 tabs of nitroglycerin for relief. This chest pain woke the patient from sleep and was nonexertional. Following the nitroglycerin the patient has not had any chest pain. Patient seen by a casing fluid tender, Dr. Portillo, in [place], [place] and just recently saw him this week. The patient is on various antihypertensive medications and he was told to decrease his Ranexa from 500 mg twice a day to once daily dosing. Patient has been compliant with this. He is also taking Imdur and metoprolol succinate 100 mg twice a day. He was told that other than medication changes that he was doing well. The patient does routinely check his blood pressure at home and notes that at times, systolically, he has been between 60-70. He has had systolic blood pressures greater than 110. In checking his blood pressure last night he was systolically between 120 and 130. The patient does not have orthopnea but does note peripheral edema in his lower extremities bilaterally. He reported at times to get shortness of breath but denies any hemoptysis. While in the ER the patient denies any chest pain, palpitations, shortness of breath, wheezing, cough, abdominal pain, nausea, vomiting, constipation, diarrhea, headache, dizziness, lightheadedness. - Discharge Data Discharge Date: 07/23/16 Discharge Disposition: Home, Self-Care 01 Condition: Good - Patient Instructions Diet: Heart Healthy Diet Activity: As Tolerated, No Strenuous Activities Showering/Bathing: July Shower Notify Provider of: Fever, Increased Pain, Swelling and Redness, Drainage, Nausea and/or Vomiting - Discharge Plan Home Medications: Home Meds Metoprolol Succinate [Toprol Xl] 100 mg PO BID 11/17/14 [History] Tiotropium [Spiriva HandiHaler] 18 mcg INH DAILY 11/17/14 [History] Cholecalciferol (Vitamin D3) [Vitamin D3] 2,000 unit PO DAILY 01/28/15 [History] Multivitamin [Multivitamins] 1 tab PO DAILY 01/28/15 [History] Nitroglycerin 1 tab PO ASDIRECTED PRN 01/28/15 [History] Ascorbic Acid [C-1000] 1,000 mg PO DAILY 07/19/16 [History] Clopidogrel [Plavix] 75 mg PO DAILY 07/19/16 [History] Ezetimibe/Simvastatin [Vytorin 10-80 mg Tablet] 1 tab PO BEDTIME 07/19/16 [ History] Famotidine 20 mg PO DAILY 07/19/16 [History] Fish Oil/[place]-3 Fatty Acids [Fish Oil 1,000 MG] 1 gm PO DAILY 07/19/16 [History ] Lutein/Minerals/Vit A,C & E [Ocuvite] 1 tab PO DAILY 07/19/16 [History] Rutin/Hesp/Bioflav/C/Herb#196 [Bioflex] 1 each PO DAILY 07/19/16 [History] Ubidecarenone [Coenzyme Q10] 100 mg PO DAILY 07/19/16 [History] guaiFENesin [Mucinex] 1,200 mg PO DAILY 07/19/16 [History] Aspirin 81 mg PO BID 07/22/16 [History] Isosorbide Mononitrate [Imdur] 60 mg PO DAILY #0 tab.er 07/23/16 [Rx] Patient Handouts: Nonspecific Chest Pain, [id number] Referrals: Maxwell Portillo MD [Consulting Physician] - 08/08/16 3:20 pm (follow up with Dr Portillo in [place],,[address] [place] [address]) - Discharge Summary/Plan Comment DC Time >30 min.: No Discharge Summary/Plan Comment: Discharge diagnoses: Unstable angina vs NSTEMI Hypotension-resolved. GERD Hx CABG Hx CAD Carotid stenosis Porcine aortic valve replacement. Steve was initially admitted for observation secondary to chest pain. Third set of Troponins did elevate to 1.13. Dr Sebastian did speak with Dr Cline in [facility] in [place] who recommended continued medical treatment for ischemic event as her felt intervention was not needed. Metoprolol and Imdur were continued. Lisinopril was held secondary to hypotension. Lovenox was started, but patient refused this. Continue Plavix and ASA. Imdur was decreased from 60 BID to once daily due to hypotension. Blood pressure remained stable in 110-120/ 60s. Will continue to hold Lisinopril and Ranexa for now. Continue Metoprolol and Imdur 60 mg once daily. Troponin today 0.55. NO further chest pain. Will arrange close follow up with patient's Weight Engineer Dr Portillo. patient is requesting discharge today, he is feeling much better and is no longer having chest pain. He did have some GERD last evening, he burped and it helped relieve some burning. He is to continue Pepcid which he was taking per home medications. He is to return to ED or clinic if concerns should arise. - General Info Date of Service: 07/23/16 Admission Dx/Problem (Free Text: Admission Diagnosis/Problem Admission Diagnosis/Problem Hypotension Subjective Update: Reports feeling well today and is requesting discharge. No further chest pain. No palpitations. No concerns of pain. Functional Status: Reports: pain controlled, tolerating diet, ambulating, urinating - Review of Systems General: Reports: No Symptoms. Denies: Fever HEENT: Reports: no symptoms Pulmonary: Reports: no symptoms. Denies: shortness of breath, cough, sputum Cardiovascular: Reports: No Symptoms. Denies: Chest Pain, Palpitations, Edema Gastrointestinal: Reports: No symptoms. Denies: Abdominal pain, Nausea, Vomiting Genitourinary: Reports: no symptoms. Denies: dysuria, frequency, burning Musculoskeletal: Reports: no symptoms Skin: Reports: no symptoms Neurological: Reports: No Symptoms Psychiatric: Reports: no symptoms - Patient Data Vitals - Most Recent: Last Vital Signs Temp 97.9 F 07/23/16 08:09 Pulse 62 07/23/16 09:14 Resp 16 07/23/16 08:09 BP 110/61 07/23/16 09:14 Pulse Ox 90 L 07/23/16 08:09 Orthostatic Blood Pressure [ 119/68 Supine] Orthostatic Blood Pressure [ 123/62 Standing] Orthostatic Blood Pressure [ 126/72 Sitting] Weight - Most Recent: 62.5 kg I&O - Last 24 hours: Intake & Output 07/22/16 07/23/16 07/23/16 22:59 06:59 14:59 Intake Total 920 750 Output Total 1265 1625 Balance -345 -875 Lab Results - Last 24 hrs: Laboratory Results - last 24 hr 07/23/16 07/23/16 07/23/16 Range/Units 04:37 04:37 04:37 WBC 4.84 (4.0-11.0) K/uL RBC 3.08 L (4.50-5.90) M/uL Hgb 8.9 L (13.0-17.0) g/dL Hct 26.1 L (38.0-50.0) % MCV 84.7 (80.0-98.0) fL MCH 28.9 (27.0-32.0) pg MCHC 34.1 (31.0-37.0) g/dL RDW Std Deviation 53.5 (28.0-62.0) fl RDW Coeff of Trae 17 H (11.0-15.0) % Plt Count 259 (150-400) K/uL MPV 8.50 (7.40-12.00) fL Add Manual Diff YES Neutrophils % (Manual) 60 (48.0-80.0) % Lymphocytes % (Manual) 24 (16.0-40.0) % Monocytes % (Manual) 10 (0.0-15.0) % Eosinophils % (Manual) 6 (0.0-7.0) % Nucleated RBC % 0.0 /100WBC Absolute Seg Neuts 2.9 Band Neutrophils # 1.2 Lymphocytes # (Manual) 1.2 Monocytes # (Manual) 0.5 Eosinophils # (Manual) 0.3 Nucleated RBCs # 0 K/uL Sodium 127 L (136-146) mmol/L Potassium 4.4 (3.5-5.1) mmol/L Chloride 96 L (98-110) mmol/L Carbon Dioxide 24 (21-31) mmol/L BUN 12 (6.0-23.0) mg/dL Creatinine 0.8 (0.6-1.5) mg/dL Est Cr Clr Drug Dosing 61.12 mL/min Estimated GFR (MDRD) > 60.0 ml/min Glucose 92 (60-110) mg/dL Calcium 8.8 (8.8-10.8) mg/dL Troponin I 0.55 H* (0.0-0.29) NG/ML Med Orders - Current: Current Medications Acetaminophen (Tylenol) 650 mg PO Q4H PRN PRN Reason: Pain (Mild 1-3)/fever Last Admin: 07/20/16 17:47 Dose: 650 mg Albuterol (Proventil Neb Soln) 2.5 mg NEB Q2H PRN PRN Reason: Shortness Of Breath/wheezing Ascorbic Acid (Vitamin C) 1,000 mg PO DAILY [facility] Last Admin: 07/23/16 09:14 Dose: 1,000 mg Aspirin (Aspirin) 81 mg PO BID [facility] Last Admin: 07/23/16 09:13 Dose: 81 mg Cholecalciferol (Vitamin D3) 2,000 units PO DAILY [facility] Last Admin: 07/23/16 09:15 Dose: 2,000 units Clopidogrel Bisulfate (Plavix) 75 mg PO DAILY [facility] Last Admin: 07/23/16 09:13 Dose: 75 mg Ezetimibe (Zetia) 10 mg PO BEDTIME [facility] Enoxaparin Sodium (Lovenox) 60 mg SUBCUT Q12H [facility] Last Admin: 07/23/16 02:39 Dose: Not Given Famotidine (Pepcid) 20 mg PO DAILY [facility] Last Admin: 07/23/16 09:15 Dose: 20 mg Fish Oil (Fish Oil) 1 gm PO DAILY [facility] Last Admin: 07/23/16 09:26 Dose: Not Given Guaifenesin (Mucus Relief) 400 mg PO Q4H PRN PRN Reason: Congestion Guaifenesin (Mucinex) 600 mg PO ASDIRECTED [facility] Last Admin: 07/23/16 09:50 Dose: 600 mg Isosorbide Mononitrate (Imdur) 60 mg PO DAILY [facility] Last Admin: 07/23/16 09:14 Dose: 60 mg Metoprolol Succinate (Toprol Xl) 100 mg PO BID [facility] Last Admin: 07/23/16 09:14 Dose: 100 mg Multivitamins/Minerals (Prosight) 1 tab PO DAILY [facility] Last Admin: 07/23/16 09:13 Dose: 1 tab Multivitamins/Minerals (Thera M Plus) 1 tab PO DAILY [facility] Last Admin: 07/23/16 09:13 Dose: 1 tab Rutin/Hesp/Bioflav/C /Herb#196 [Bioflex] 1 Each 1 each PO DAILY [facility] Last Admin: 07/23/16 09:20 Dose: 1 each Ubidecarenone [ (Coenzyme Q10] 100 Mg) 1 each PO DAILY [facility] Last Admin: 07/23/16 09:20 Dose: 1 each Simvastatin (Zocor) 80 mg PO BEDTIME [facility] Sodium Chloride (Saline Flush) 10 ml FLUSH ASDIRECTED PRN PRN Reason: Keep Vein Open Last Admin: 07/20/16 13:51 Dose: 10 ml Sodium Chloride (Saline Flush) 2.5 ml FLUSH ASDIRECTED PRN PRN Reason: Keep Vein Open Last Admin: 07/20/16 13:51 Dose: 2.5 ml Tiotropium [place] (Spiriva Handihaler) 18 mcg INH DAILY [facility] Last Admin: 07/22/16 11:40 Dose: 1 cap Discontinued Medications Aspirin (Aspirin) 324 mg PO ONETIME ONE Stop: 07/20/16 13:48 Last Admin: 07/20/16 13:51 Dose: 324 mg Aspirin (Aspirin) 325 mg PO ACDINNER [facility] Last Admin: 07/21/16 17:09 Dose: Not Given Aspirin (Aspirin) 81 mg PO ONETIME ONE Stop: 07/21/16 23:36 Last Admin: 07/22/16 00:29 Dose: 81 mg Al Hydroxide/Mg Hydroxide 15 (ml/ Lidocaine HCl 5 ml) 0 ml PO ONETIME ONE Stop: 07/20/16 20:01 Last Admin: 07/20/16 21:00 Dose: 20 each Ezetimibe (Zetia) 10 mg PO BEDTIME [facility] Last Admin: 07/20/16 21:05 Dose: Not Given Sodium Chloride (Normal Saline) 1,000 mls @ 50 mls/hr IV ASDIRECTED [facility] Last Admin: 07/20/16 13:51 Dose: 50 mls/hr Pantoprazole Sodium 80 mg/ (Sodium Chloride) 100 mls @ 10 mls/hr IV .Continuous [facility] Pantoprazole Sodium 80 mg/ (Sodium Chloride) 100 mls @ 10 mls/hr IV Q10H [facility] Last Admin: 07/22/16 09:24 Dose: 10 mls/hr Isosorbide Mononitrate (Imdur) 60 mg PO BID [facility] Last Admin: 07/22/16 08:45 Dose: 60 mg Pantoprazole Sodium (Protonix Iv) 80 mg IVPUSH .BOLUS ONE Stop: 07/20/16 14:36 Last Admin: 07/20/16 14:49 Dose: 80 mg Ezetimibe/Simvastatin [Vytorin 10-80 Mg Tablet] 1 Tab *Own Med* 1 each PO BEDTIME [facility] Last Admin: 07/22/16 20:53 Dose: 1 each Simvastatin (Zocor) 80 mg PO BEDTIME [facility] Last Admin: 07/20/16 21:06 Dose: Not Given - Exam General: Reports: alert, oriented, cooperative Lungs: Reports: Clear to auscultation, Normal respiratory effort Cardiovascular: Reports: Regular Rate, Regular Rhythm, No Murmurs Abdomen: Reports: bowel sounds present, soft, no tenderness, no distension Extremities: Reports: normal pulses, edema (trace pitting edema to BLE) Psy/Mental Status: Reports: alert, normal affect, normal mood *Q Meaningful Use (DIS) - VTE *Q VTE Criteria *Q: - Stroke *Q Stroke Criteria *Q: - AMI *Q AMI Criteria *Q:
[2016-07-23 11:57] VITALS: BP 105/57
[2016-07-23] MEDS: Tiotropium Inhaler 18 MCG Inhalation Powder Cap Kit of 5 INH SCH (14:32)
[2016-07-23] MEDS ORDERED: Ezetimibe 10 MG Tab PO SCH (21:00)
== END 2016-07-23 14:49 | disposition home or self-care (01) | DRG 282 ==
LOC: MW.ED 13:30 → MW.MS 15:05 → OBSVTOIN 07-21 03:39 → MW.MS 07-21 11:46
PROVIDERS: ADMIT Internal Medicine; ATTEND Internal Medicine
DX: I21.4 Non-ST elevation (NSTEMI) myocardial infarction (principal); I95.9 Hypotension, unspecified; J44.9 Chronic obstructive pulmonary disease, unspecified; K21.9 Gastro-esophageal reflux disease without esophagitis; E78.5 Hyperlipidemia, unspecified; F17.200 Nicotine dependence, unspecified, uncomplicated; I65.29 Occlusion and stenosis of unspecified carotid artery; I25.10 Atherosclerotic heart disease of native coronary artery without angina pectoris; R79.89 Other specified abnormal findings of blood chemistry; D64.9 Anemia, unspecified; Z95.2 Presence of prosthetic heart valve; Z95.1 Presence of aortocoronary bypass graft; Z79.899 Other long term (current) drug therapy
CPT/HCPCS: 36415 ×2; 71010; 80048; 80053; 83690; 83735; 83880; 84484 ×3; 85025 ×2; 93005 ×3; 96361; 96365; 96375; 99285; A9270 ×5; C9113 ×3; J7030 ×2; J7040; 81001; 96366; 97161-GP; G0378

== ENCOUNTER 2016-09-19 19:25 | Inpatient (IN) | payer MEDICARE, BC ==
[2016-09-19] MEDS ORDERED: methylPREDNISolone Sodium Succinate 125 MG/2 ML SDV IVPUSH ONE (19:37)
[2016-09-19] MEDS ORDERED: Albuterol/Ipratropium 3.0-0.5 MG/3 ML Neb Soln NEB ONE (19:37)
--- NOTE | 2016-09-19 19:40 | EDM.PDOC ---
ED HPI GENERAL MEDICAL PROBLEM - General Chief Complaint: Respiratory Problem Stated Complaint: UNK Time Seen by Provider: 09/19/16 19:39 Source of Information: Reports: Patient - History of Present Illness INITIAL COMMENTS - FREE TEXT/NARRATIVE: HISTORY AND PHYSICAL: History of present illness: []Patient with history of COPD, CABG and aortic valve replacement presents with shortness of breath increasing over the last several weeks he has 2-3+ edema and orthopnea, generally he can walk at least 50 feet without becoming significantly short of breath over the last couple of weeks however at current he is only able to make it from his living room to the kitchen No fever nausea vomiting chills sweats no chest pain headache dizziness or palpitation no bowel or urine symptoms Review of systems: As per history of present illness and below otherwise all systems reviewed and negative. Past medical history: As per history of present illness and as reviewed below otherwise noncontributory. Surgical history: As per history of present illness and as reviewed below otherwise noncontributory. Social history: No reported history of drug or alcohol abuse. Family history: As per history of present illness and as reviewed below otherwise noncontributory. Physical exam: HEENT: Atraumatic, normocephalic, pupils reactive, negative for conjunctival pallor or scleral icterus, mucous membranes moist, throat clear, neck supple, nontender, trachea midline. Lungs: Clear to auscultation, breath sounds equal bilaterally, chest nontender. Heart: S1S2, regular, negative for clicks, rubs, or JVD. Abdomen: Soft, nondistended, nontender. Negative for masses or hepatosplenomegaly. Negative for costovertebral tenderness. Pelvis: Stable nontender. Genitourinary: Deferred. Rectal: Deferred. Extremities: Atraumatic, negative for cords or calf pain. Neurovascular unremarkable. Neuro: Awake, alert, oriented. Cranial nerves II through XII unremarkable. Cerebellum unremarkable. Motor and sensory unremarkable throughout. Exam nonfocal. Diagnostics: []Lab as below EKG Chest 1 view Therapeutics: []Normal saline TKO Solu-Medrol 125 mg IV DuoNeb Impression: []2-3 + edema CHF COPD Anemia Chronic history of baseline disposition and diagnosis as appropriate pending reevaluation and review of above. scrotal & penile swelling Pain Score (Numeric/FACES): 2 - Related Data Allergies Allergy/AdvReac Type Severity Reaction Status Date / Time No Known Allergies Allergy Verified 09/19/16 19:32 Home Meds: Home Meds Metoprolol Succinate [Toprol Xl] 100 mg PO BID 11/17/14 [History] Tiotropium [Spiriva HandiHaler] 18 mcg INH DAILY 11/17/14 [History] Cholecalciferol (Vitamin D3) [Vitamin D3] 2,000 unit PO DAILY 01/28/15 [History] Nitroglycerin 1 tab PO ASDIRECTED PRN 01/28/15 [History] Clopidogrel [Plavix] 75 mg PO DAILY 07/19/16 [History] Ezetimibe/Simvastatin [Vytorin 10-80 mg Tablet] 1 tab PO BEDTIME 07/19/16 [ History] Rutin/Hesp/Bioflav/C/Herb#196 [Bioflex] 1 each PO DAILY 07/19/16 [History] Ubidecarenone [Coenzyme Q10] 100 mg PO DAILY 07/19/16 [History] guaiFENesin [Mucinex] 1,200 mg PO DAILY 07/19/16 [History] Aspirin 81 mg PO BID 07/22/16 [History] Isosorbide Mononitrate [Imdur] 60 mg PO DAILY #0 tab.er 07/23/16 [Rx] Past Medical History Cardiovascular History: Reports: Bypass, CAD, Heart Valve Replacement Respiratory History: Reports: COPD, Other (See Below) Other Respiratory History: emphysema Gastrointestinal History: Reports: GERD Genitourinary History: Reports: Prostate Disorder Musculoskeletal History: Reports: Other (See Below) Other Musculoskeletal History: past rib fx Endocrine/Metabolic History: Reports: None Oncologic (Cancer) History: Reports: Prostate - Infectious Disease History Infectious Disease History: Reports: Chicken Pox, Measles, Mumps - Past Surgical History HEENT Surgical History: Reports: Other (See Below) Cardiovascular Surgical History: Reports: Coronary Artery Bypass Social & Family History - Family History Family Medical History: Noncontributory - Tobacco Use Smoking Status *Q: Current Every Day Smoker Years of Tobacco use: 50 Packs/Tins Daily: 0.5 Used Tobacco, but Quit: No Second Hand Smoke Exposure: No - Caffeine Use Caffeine Use: Reports: Coffee Caffeine Use Comment: Drinks 6 cups of coffee in a day. - Alcohol Use Days Per Week of Alcohol Use: 7 Number of Drinks Per Day: 3 Total Drinks Per Week: 21 - Recreational Drug Use Recreational Drug Use: No ED ROS GENERAL - Review of Systems Review Of Systems: See Below ED EXAM, GENERAL - Physical Exam Exam: See Below Course - Vital Signs Last Recorded V/S: Last Vital Signs Temp 36.6 C 09/19/16 20:29 Pulse 68 09/19/16 20:29 Resp 20 09/19/16 20:29 BP 97/53 L 09/19/16 20:29 Pulse Ox 95 09/19/16 20:29 - Orders/Labs/Meds Orders: Active Orders 24 hr Category Date Time Status EKG Documentation Completion [RC] STAT Care 09/19/16 19:37 Active RT Aerosol Therapy [RC] ASDIRECTED Care 09/19/16 19:38 Active Chest 1V Frontal [CR] Stat Exams 09/19/16 19:37 Taken UA W/MICROSCOPIC [URIN] Stat Lab 09/19/16 19:37 Uncollected Sodium Chloride 0.9% [Normal Saline] 1,000 ml Med 09/19/16 19:45 Active IV STAT Medication Orders Sodium Chloride (Normal Saline) 1,000 mls @ 30 mls/hr IV STAT PURVI Last Admin: 09/19/16 19:58 Dose: 30 mls/hr Labs: Laboratory Tests 09/19/16 09/19/16 09/19/16 Range/Units 19:00 19:50 19:50 WBC 5.84 (4.0-11.0) K/uL RBC 3.05 L (4.50-5.90) M/uL Hgb 9.2 L (13.0-17.0) g/dL Hct 28.1 L (38.0-50.0) % MCV 92.1 (80.0-98.0) fL MCH 30.2 (27.0-32.0) pg MCHC 32.7 (31.0-37.0) g/dL RDW Std Deviation 79.7 H (28.0-62.0) fl RDW Coeff of Trae 25 H (11.0-15.0) % Plt Count 194 (150-400) K/uL MPV 9.00 (7.40-12.00) fL Neut % (Auto) 68.0 (48.0-80.0) % Lymph % (Auto) 16.3 (16.0-40.0) % [place] % (Auto) 14.0 (0.0-15.0) % Eos % (Auto) 1.5 (0.0-7.0) % Baso % (Auto) 0.2 (0.0-1.5) % Neut # (Auto) 4.0 (1.4-5.7) K/uL Lymph # (Auto) 1.0 (0.6-2.4) K/uL [place] # (Auto) 0.8 (0.0-0.8) K/uL Eos # (Auto) 0.1 (0.0-0.7) K/uL Baso # (Auto) 0.0 (0.0-0.1) K/uL Nucleated RBC % 0.0 /100WBC Nucleated RBCs # 0 K/uL INR 1.08 (0.86-1.11) Sodium 131 L (136-146) mmol/L Potassium 5.5 H (3.5-5.1) mmol/L Chloride 98 (98-110) mmol/L Carbon Dioxide 25 (21-31) mmol/L BUN 37 H (6.0-23.0) mg/dL Creatinine 1.5 (0.6-1.5) mg/dL Est Cr Clr Drug Dosing 32.86 mL/min Estimated GFR (MDRD) 45.6 ml/min Glucose 91 (60-110) mg/dL Calcium 8.4 L (8.8-10.8) mg/dL Total Bilirubin 0.3 (0.1-1.5) mg/dL AST 29 (5-40) IU/L ALT 47 (8-54) IU/L Alkaline Phosphatase 59 (40-150) Creatine Kinase 99 (9-236) IU/L CK-MB (CK-2) 2.2 (0-6.6) ng/ml Troponin I (0.0-0.29) NG/ML B-Natriuretic Peptide (<100) PG/ML Total Protein 6.1 (6.0-8.0) g/dL Albumin 3.6 (3.4-4.8) g/dL Globulin 2.5 (2.0-3.5) g/dL Albumin/Globulin Ratio 1.4 (1.3-2.8) 09/19/16 09/19/16 Range/Units 19:50 19:50 WBC (4.0-11.0) K/uL RBC (4.50-5.90) M/uL Hgb (13.0-17.0) g/dL Hct (38.0-50.0) % MCV (80.0-98.0) fL MCH (27.0-32.0) pg MCHC (31.0-37.0) g/dL RDW Std Deviation (28.0-62.0) fl RDW Coeff of Trae (11.0-15.0) % Plt Count (150-400) K/uL MPV (7.40-12.00) fL Neut % (Auto) (48.0-80.0) % Lymph % (Auto) (16.0-40.0) % [place] % (Auto) (0.0-15.0) % Eos % (Auto) (0.0-7.0) % Baso % (Auto) (0.0-1.5) % Neut # (Auto) (1.4-5.7) K/uL Lymph # (Auto) (0.6-2.4) K/uL [place] # (Auto) (0.0-0.8) K/uL Eos # (Auto) (0.0-0.7) K/uL Baso # (Auto) (0.0-0.1) K/uL Nucleated RBC % /100WBC Nucleated RBCs # K/uL INR (0.86-1.11) Sodium (136-146) mmol/L Potassium (3.5-5.1) mmol/L Chloride (98-110) mmol/L Carbon Dioxide (21-31) mmol/L BUN (6.0-23.0) mg/dL Creatinine (0.6-1.5) mg/dL Est Cr Clr Drug Dosing mL/min Estimated GFR (MDRD) ml/min Glucose (60-110) mg/dL Calcium (8.8-10.8) mg/dL Total Bilirubin (0.1-1.5) mg/dL AST (5-40) IU/L ALT (8-54) IU/L Alkaline Phosphatase (40-150) Creatine Kinase (9-236) IU/L CK-MB (CK-2) (0-6.6) ng/ml Troponin I < 0.10 (0.0-0.29) NG/ML B-Natriuretic Peptide > 3306 H (<100) PG/ML Total Protein (6.0-8.0) g/dL Albumin (3.4-4.8) g/dL Globulin (2.0-3.5) g/dL Albumin/Globulin Ratio (1.3-2.8) Meds: Medications Generic Name Dose Route Start Last Admin Trade Name Freq PRN Reason Stop Dose Admin Sodium Chloride 1,000 mls @ 30 mls/hr 09/19/16 19:45 09/19/16 19:58 Normal Saline IV 30 mls/hr STAT PURVI Administration Discontinued Medications Generic Name Dose Route Start Last Admin Trade Name Freq PRN Reason Stop Dose Admin Albuterol/Ipratropium 3 ml 09/19/16 19:37 09/19/16 19:59 Duoneb 3.0-0.5 Mg/3 Ml NEB 09/19/16 19:38 3 ml ONETIME ONE Administration Furosemide 40 mg 09/19/16 20:19 09/19/16 20:28 Lasix IVPUSH 09/19/16 20:20 40 mg NOW ONE Administration Methylprednisolone Sodium Succinate 125 mg 09/19/16 19:37 09/19/16 19:58 Solu-Medrol IVPUSH 09/19/16 19:38 125 mg ONETIME ONE Administration Departure - Departure Time of Disposition: 20:52 Disposition: Admitted As Inpatient 67 Condition: Fair Clinical Impression: CHF (congestive heart failure), COPD (chronic obstructive pulmonary disease) Anemia Qualifiers: Anemia type: unspecified type Qualified Code(s): D64.9 - Anemia, unspecified - Discharge Information Forms: ED Department Discharge - My Orders Last 24 Hours: My Active Orders 09/19/16 19:37 EKG Documentation Completion [RC] STAT Chest 1V Frontal [CR] Stat UA W/MICROSCOPIC [URIN] Stat 09/19/16 19:38 RT Aerosol Therapy [RC] ASDIRECTED 09/19/16 19:45 Sodium Chloride 0.9% [Normal Saline] 1,000 ml IV STAT - Assessment/Plan Last 24 Hours: My Active Orders 09/19/16 19:37 EKG Documentation Completion [RC] STAT Chest 1V Frontal [CR] Stat UA W/MICROSCOPIC [URIN] Stat 09/19/16 19:38 RT Aerosol Therapy [RC] ASDIRECTED 09/19/16 19:45 Sodium Chloride 0.9% [Normal Saline] 1,000 ml IV STAT
[2016-09-19] MEDS ORDERED: Sodium Chloride 0.9% 1,000 ML IV SCH (19:45)
[2016-09-19] MEDS ORDERED: Furosemide 40 MG/4 ML VIAL IVPUSH ONE (20:19)
[2016-09-19] MEDS ORDERED: Sodium Chloride 0.9% 10 ML Syringe FLUSH PRN (21:37)
[2016-09-19] MEDS ORDERED: Sodium Chloride 0.9% 2.5 ML Syringe FLUSH PRN (21:37)
[2016-09-19] MEDS ORDERED: Albuterol/Ipratropium 3.0-0.5 MG/3 ML Neb Soln NEB PRN (21:37)
--- NOTE | 2016-09-20 08:28 | PCM.HP ---
H&P History of Present Illness - General Date of Service: 09/20/16 Admit Problem/Dx: Admission Diagnosis/Problem Admission Diagnosis/Problem CHF, Congestive heart failure Source of Information: Patient History Limitations: Reports: No Limitations - History of Present Illness Initial Comments - Free Text/Narative: This is a 76 year old male with pmh of CABG, aortic valve replacement, carotid stenosis, and COPD presented to the ED with worsening dyspnea and peripheral edema. He reports over the last 2-3 weeks a worsening of edema and dyspnea on exertion. He doesn't necessarily feel orthopneic, but doesn't usually sleep flat due to GERD. He saw his saddle tree stitcher last week, Dr. pruitt, with no changes to current regimen. His most recent Nuclear med study showed LV EF 37%, per report of Dr. Pruitt, in May 2016. He was previously admitted Jul 21 2016, and had elevation in troponin, it was felt he did have an ischemic event. Steve at that time refused Lovenox. He was discharged home with no peripheral edema. He says a week after that he started noticing the edema. He denies chest pain and no palpitations. No N/V abdominal pain or urinary symptoms. He feels like he has swelling in his penis and scrotum along with lower legs and feet. He normally has a cough, and uses nebulixzers and Mucinex to help with this. In the ED BUN 37, Cr 1.5 BNP elevated from baseine at 3306, Na 131, K+5.5. CXR showed stable cardiomegaly no noted pulmonary edema or infiltrate. He was given Lasix 40 mg IV and Solumedrol 125 IV. He was admitted for CHF exacerbation. PCP, Dr Trejo scrotal & penile swelling Pain Score (Numeric/FACES): 2 - Related Data Allergies/Adverse Reactions: Allergies Allergy/AdvReac Type Severity Reaction Status Date / Time No Known Allergies Allergy Verified 09/19/16 19:32 Home Medications: Home Meds Metoprolol Succinate [Toprol Xl] 100 mg PO DAILY 11/17/14 [History] Nitroglycerin 0.4 mg PO ASDIRECTED PRN 01/28/15 [History] Clopidogrel [Plavix] 37.5 mg PO DAILY 07/19/16 [History] Ezetimibe/Simvastatin [Vytorin 10-80 mg Tablet] 5 - 40 mg PO BEDTIME 07/19/16 [ History] guaiFENesin [Mucinex] 1,200 mg PO DAILY 07/19/16 [History] Aspirin 81 mg PO DAILY 07/22/16 [History] Isosorbide Mononitrate [Imdur] 60 mg PO DAILY #0 tab.er 07/23/16 [Rx] Albuterol [Ventolin HFA] 2 inh IH QID PRN 09/20/16 [History] Albuterol/Ipratropium [DuoNeb 3.0-0.5 MG/3 ML] 3 ml IH QID 09/20/16 [History] Past Medical History HEENT History: Reports: Impaired Vision Cardiovascular History: Reports: Bypass, CAD, Heart Failure, Heart Valve Replacement, SOB on Exertion Respiratory History: Reports: COPD, Other (See Below) Other Respiratory History: emphysema Gastrointestinal History: Reports: GERD Genitourinary History: Reports: Prostate Disorder Musculoskeletal History: Reports: Other (See Below) Other Musculoskeletal History: past rib fx Neurological History: Reports: None Psychiatric History: Reports: None Endocrine/Metabolic History: Reports: None Hematologic History: Reports: Anemia Immunologic History: Reports: None Oncologic (Cancer) History: Reports: Prostate Dermatologic History: Reports: None - Infectious Disease History Infectious Disease History: Reports: Chicken Pox, Measles, Mumps - Past Surgical History Cardiovascular Surgical History: Reports: Coronary Artery Bypass Respiratory Surgical History: Reports: None Social & Family History - Family History Family Medical History: Noncontributory - Tobacco Use Smoking Status *Q: Current Every Day Smoker Years of Tobacco use: 55 Packs/Tins Daily: 0.5 Used Tobacco, but Quit: No Second Hand Smoke Exposure: No - Caffeine Use Caffeine Use: Reports: Coffee Caffeine Use Comment: Drinks 6 cups of coffee in a day. - Alcohol Use Days Per Week of Alcohol Use: 7 Number of Drinks Per Day: 1 Total Drinks Per Week: 7 Date of Last Drink: 09/19/16 - Recreational Drug Use Recreational Drug Use: No H&P Review of Systems - Review of Systems: Review Of Systems: See Below General: Reports: No Symptoms. Denies: Fever, Chills, Malaise, Night Sweats HEENT: Reports: No Symptoms. Denies: Headaches, Sinus Congestion, Sore Throat, Visual Changes Pulmonary: Reports: No Symptoms. Denies: Shortness of Breath, Cough, Sputum Cardiovascular: Reports: Dyspnea on Exertion, Edema. Denies: Chest Pain Gastrointestinal: Reports: No Symptoms. Denies: Abdominal Pain, Nausea, Vomiting Genitourinary: Reports: No Symptoms. Denies: Dysuria, Frequency, Burning Musculoskeletal: Reports: No Symptoms Skin: Reports: No Symptoms Neurological: Reports: No Symptoms Hematologic/Lymphatic: Reports: No Symptoms Immunologic: Reports: No Symptoms Exam - Exam Exam: See Below - Vital Signs Vital Signs: Last Vital Signs Temp 97.9 F 09/20/16 07:57 Pulse 67 09/20/16 07:57 Resp 20 09/20/16 07:57 BP 98/55 L 09/20/16 07:57 Pulse Ox 95 09/20/16 07:57 Weight: 66 kg - Exam General: Alert, Oriented, Cooperative HEENT: Conjunctiva Clear, EACs Clear, EOMI, Hearing Intact, Mucosa Moist & [place] , Nares Patent, Posterior Pharynx Clear Neck: Supple. No: JVD Lungs: Normal Respiratory Effort, Wheezing. No: Crackles Cardiovascular: Regular Rate, Regular Rhythm, Normal S1, Normal S2 (Male) Exam: No: Penile Lesions, Scrotal Swelling (no penile swelling noted.) Extremities: Edema (+3 pitting edema from knees extendind down to bitaleral feet. ) Skin: Warm, Dry, Intact Neuro Extensive - Mental Status: Alert, Oriented x3, Normal Mood/Affect, Normal Cognition Neuro Extensive - Motor, Sensory, Reflexes: CN II-XII Intact, Normal Gait Psychiatric: Alert, Normal Affect, Normal Mood - Patient Data Lab Results Last 24 hrs: Laboratory Results - last 24 hr 09/19/16 09/20/16 09/20/16 Range/Units 22:15 04:51 04:51 WBC 4.14 (4.0-11.0) K/uL RBC 3.05 L (4.50-5.90) M/uL Hgb 9.1 L (13.0-17.0) g/dL Hct 28.2 L (38.0-50.0) % MCV 92.5 (80.0-98.0) fL MCH 29.8 (27.0-32.0) pg MCHC 32.3 (31.0-37.0) g/dL RDW Std Deviation 80.0 H (28.0-62.0) fl RDW Coeff of Trae 25 H (11.0-15.0) % Plt Count 202 (150-400) K/uL MPV 8.80 (7.40-12.00) fL Neut % (Auto) 90.4 H (48.0-80.0) % Lymph % (Auto) 8.9 L (16.0-40.0) % [place] % (Auto) 0.7 (0.0-15.0) % Eos % (Auto) 0.0 (0.0-7.0) % Baso % (Auto) 0.0 (0.0-1.5) % Neut # (Auto) 3.7 (1.4-5.7) K/uL Lymph # (Auto) 0.4 L (0.6-2.4) K/uL [place] # (Auto) 0.0 (0.0-0.8) K/uL Eos # (Auto) 0.0 (0.0-0.7) K/uL Baso # (Auto) 0.0 (0.0-0.1) K/uL Nucleated RBC % 0.0 /100WBC Nucleated RBCs # 0 K/uL Sodium 130 L (136-146) mmol/L Potassium 5.8 H (3.5-5.1) mmol/L Chloride 97 L (98-110) mmol/L Carbon Dioxide 26 (21-31) mmol/L BUN 34 H (6.0-23.0) mg/dL Creatinine 1.5 (0.6-1.5) mg/dL Est Cr Clr Drug Dosing 38.40 mL/min Estimated GFR (MDRD) 45.6 ml/min Glucose 165 H (60-110) mg/dL Calcium 8.4 L (8.8-10.8) mg/dL Urine Color YELLOW Urine Appearance CLEAR Urine pH 6.0 (5.0-8.0) Ur Specific [place] 1.010 (1.001-1.035) Urine Protein NEGATIVE (NEGATIVE) mg/dL Urine Glucose (UA) NEGATIVE (NEGATIVE) mg/dL Urine Ketones NEGATIVE (NEGATIVE) mg/dL Urine Occult Blood NEGATIVE (NEGATIVE) Urine Nitrite NEGATIVE (NEGATIVE) Urine Bilirubin NEGATIVE (NEGATIVE) Urine Urobilinogen 0.2 (<2.0) EU/dL Ur Leukocyte Esterase NEGATIVE (NEGATIVE) Urine RBC 0-1 (0-2/HPF) Urine WBC 0-1 (0-5/HPF) Ur Epithelial Cells RARE (NONE-FEW) Urine Bacteria RARE (NEGATIVE) Result Diagrams: 09/20/16 04:51 09/20/16 04:51 *Q Meaningful Use (ADM) - VTE *Q VTE Criteria *Q: - VTE Risk Assess *Q Each Risk Factor Represents 1 Point: Swollen Legs, Current, Congestive Heart Failure, Less than 1 Month, Abnormal Pulmonary Function (COPD) Total Score 1 Point Risk Factors: 3 Each Risk Factor Represents 2 Points: None Total Score 2 Point Risk Factors: 0 Each Risk Factor Represents 3 Points: Age 75 Years or Greater Total Score 3 Point Risk Factors: 3 Each Risk Factor Represents 5 Points: None Total Score 5 Point Risk Factors: 0 Venous Thromboembolism Risk Factor Score *Q: 6 - Stroke *Q Stroke Criteria *Q: - AMI *Q AMI Criteria *Q: - Problem List (1) Dyspnea on exertion SNOMED Code(s): 82865347 ICD Code: R06.09 - OTHER FORMS OF DYSPNEA Status: Acute Current Visit: Yes (2) CHF (congestive heart failure) SNOMED Code(s): 48953588 ICD Code: I50.9 - HEART FAILURE, UNSPECIFIED Status: Acute Current Visit : Yes Qualifiers: Congestive heart failure type: systolic Congestive heart failure chronicity : acute on chronic Qualified Code(s): I50.23 - Acute on chronic systolic ( congestive) heart failure (3) Elevated brain natriuretic peptide (BNP) level SNOMED Code(s): 445008085 ICD Code: R79.89 - OTHER SPECIFIED ABNORMAL FINDINGS OF BLOOD CHEMISTRY Status: Acute Current Visit: No (4) Hx of aortic valve replacement SNOMED Code(s): 1542344177710, 541609614, 5288729960771 ICD Code: Z95.2 - PRESENCE OF PROSTHETIC HEART VALVE Status: Chronic Current Visit: Yes (5) Carotid stenosis Status: Chronic Current Visit: Yes Qualifiers: Laterality: unspecified laterality Qualified Code(s): I65.29 - Occlusion and stenosis of unspecified carotid artery (6) COPD (chronic obstructive pulmonary disease) SNOMED Code(s): 42919507 ICD Code: J44.9 - CHRONIC OBSTRUCTIVE PULMONARY DISEASE, UNSPECIFIED Status : Chronic Current Visit: Yes Qualifiers: COPD type: emphysema Emphysema type: unspecified Qualified Code(s): J43.9 - Emphysema, unspecified (7) Anemia SNOMED Code(s): 115779452 ICD Code: D64.9 - ANEMIA, UNSPECIFIED Status: Chronic Current Visit: No Qualifiers: Anemia type: unspecified type Qualified Code(s): D64.9 - Anemia, unspecified Problem List Initiated/Reviewed/Updated: Yes Orders Last 24hrs: Active Orders 24 hr Category Date Time Status RT Aerosol Therapy [RC] ASDIRECTED Care 09/19/16 21:38 Active Albuterol/Ipratropium [DuoNeb 3.0-0.5 MG/3 ML] Med 09/19/16 21:37 Active 3 ml NEB Q4HRRT PRN Sodium Chloride 0.9% [Saline Flush] Med 09/19/16 21:37 Active 10 ml FLUSH ASDIRECTED PRN Sodium Chloride 0.9% [Saline Flush] Med 09/19/16 21:37 Active 2.5 ml FLUSH ASDIRECTED PRN Saline Lock Insert [OM.PC] Routine Oth 09/19/16 21:37 Ordered Medication Orders Albuterol/Ipratropium (Duoneb 3.0-0.5 Mg/3 Ml) 3 ml NEB Q4HRRT PRN PRN Reason: Wheezing/SOB Sodium Chloride (Saline Flush) 10 ml FLUSH ASDIRECTED PRN PRN Reason: Keep Vein Open Sodium Chloride (Saline Flush) 2.5 ml FLUSH ASDIRECTED PRN PRN Reason: Keep Vein Open Assessment/Plan Comment:: This 76 year old male admitted with acute exacerbation of CHF and dyspnea of exertion 1. CHF: Will diurese with Lasix, has low BP, SBP 80-90s normally. Will monitor weights daily and strict I/O place on [address] compression stockings with elevation of legs. Most recent LV EF 37% in May 2016. Will Hold lisinopril, Imdur and metoprolol for now as we diurese. 2. Hyperkalemia: Will monitor this afternoon, giving Lasix. 3. CAD: Continue Vytorin, Plavix and ASA. Continue Ranexa 4. COPD: Continue Nebulizers and Mucinex. Spiriva recently discontinued and he is tolerating nebulizers much better per his report VTE prophylaxis: Lovenox Dispo: 2-3 days.
[2016-09-20] MEDS ORDERED: Furosemide 40 MG/4 ML VIAL IVPUSH ONE ×2 (10:00→17:15)
[2016-09-20] MEDS ORDERED: Albuterol 8 GM Inhaler INH PRN (11:22)
[2016-09-20] MEDS ORDERED: Albuterol/Ipratropium 3.0-0.5 MG/3 ML Neb Soln NEB SCH (12:00)
[2016-09-20] MEDS: Clopidogrel 75 MG Tab PO SCH (12:24)
[2016-09-20] MEDS: guaiFENesin 600 MG Tab.ER PO SCH (12:24)
[2016-09-20] MEDS: Aspirin 81 MG Tab.Chew PO SCH (12:24)
[2016-09-20] MEDS: Nicotine 7 MG/24 Hr Patch TRDERM SCH (12:30)
[2016-09-20] MEDS: Albuterol/Ipratropium 3.0-0.5 MG/3 ML Neb Soln NEB SCH ×3 (14:53→21:45)
--- NOTE | 2016-09-20 14:59 | CR ---
EXAM DATE: 09/19/16 PATIENT'S AGE: 76 Patient: TRISTAN ROSS Facility: [place], [place] Site . Site : 1940 Study: XRay Chest [id number]/5/2017 8:36:54 PM Ordering Physician: Soniya Chong Final Report: INDICATION: Shortness of breath TECHNIQUE: Chest 1 view. COMPARISON: 07/20/2016 FINDINGS: Cardiovascular and mediastinum: Stable mild cardiomegaly without congestive changes. Mediastinum is within normal limits. Sternotomy wires noted. Lungs and pleural space: Lungs are clear. No sign of infiltrate or mass. No sign of pleural effusion. No pneumothorax. Bones and soft tissues: Normal right clavicle and right upper and mid rib fractures. IMPRESSION: No acute pulmonary or cardiac abnormalities. Stable mild cardiomegaly. Dictated by Josue Boone MD @ 09/19/2016 8:43:53 PM Dictated by: Josue Boone MD @ 09/19/2016 20:43:57 (Electronic Signature) Report Signed by Proxy. [facility]ARE SYSTEMHarsha
[2016-09-20] MEDS ORDERED: Enoxaparin 40 MG/0.4 ML Syringe SUBCUT SCH (15:15)
[2016-09-20] MEDS ORDERED: SIMVASTATIN PO SCH (21:00)
[2016-09-20] MEDS ORDERED: EZETIMIBE PO SCH (21:00)
[2016-09-20] MEDS: Simvastatin 20 MG Tab PO SCH (21:38)
[2016-09-20] MEDS: Isosorbide Mononitrate 60 MG Tab.ER PO SCH (21:38)
[2016-09-20] MEDS: Ezetimibe 10 MG Tab PO SCH (23:33)
[2016-09-21] MEDS: Albuterol/Ipratropium 3.0-0.5 MG/3 ML Neb Soln NEB SCH ×6 (01:54→21:59)
[2016-09-21] MEDS: guaiFENesin 600 MG Tab.ER PO SCH (08:04)
[2016-09-21] MEDS: Aspirin 81 MG Tab.Chew PO SCH (08:04)
[2016-09-21] MEDS: Clopidogrel 75 MG Tab PO SCH (08:04)
[2016-09-21] MEDS: Isosorbide Mononitrate 60 MG Tab.ER PO SCH ×2 (08:04→20:34)
[2016-09-21] MEDS: Nicotine 7 MG/24 Hr Patch TRDERM SCH (08:05)
[2016-09-21] MEDS: Magnesium Hydroxide 400 MG/5 ML Susp 30 ML Cup PO PRN (09:01)
--- NOTE | 2016-09-21 11:33 | PCM.PN ---
- General Info Date of Service: 09/21/16 Admission Dx/Problem (Free Text): Admission Diagnosis/Problem Admission Diagnosis/Problem CHF, Congestive heart failure Subjective Update: Doing ok this morning, has complaints of congestion and the inability to clear mucus he feels in his chest. Denies chest pain or palpitations. still has LLE, but this is improving, feels fatigued and just wiped out. Functional Status: Reports: pain controlled, tolerating diet, ambulating, urinating - Review of Systems General: Reports: Fatigue HEENT: Reports: no symptoms. Denies: sore throat Pulmonary: Reports: cough Cardiovascular: Reports: Dyspnea on Exertion, Edema. Denies: Chest Pain, Palpitations, Orthopnea Gastrointestinal: Reports: No symptoms. Denies: Abdominal pain, Nausea, Vomiting Genitourinary: Reports: no symptoms. Denies: dysuria, frequency, burning Musculoskeletal: Reports: no symptoms Skin: Reports: no symptoms Neurological: Reports: No Symptoms Psychiatric: Reports: no symptoms - Patient Data Vitals - most recent: Last Vital Signs Temp 98.6 F 09/21/16 08:00 Pulse 101 H 09/21/16 08:00 Resp 18 09/21/16 08:00 BP 96/60 09/21/16 08:00 Pulse Ox 94 L 09/21/16 08:00 Weight - most recent: 64 kg I&O - last 24 hours: Intake & Output 09/20/16 09/21/16 09/21/16 22:59 06:59 14:59 Intake Total 1444 640 Output Total 1300 400 Balance 144 240 Lab Results last 24 hrs: Laboratory Results - last 24 hr 09/20/16 09/21/16 09/21/16 Range/Units 13:34 05:15 05:15 WBC 11.22 H (4.0-11.0) K/uL RBC 2.78 L (4.50-5.90) M/uL Hgb 8.4 L (13.0-17.0) g/dL Hct 25.2 L (38.0-50.0) % MCV 90.6 (80.0-98.0) fL MCH 30.2 (27.0-32.0) pg MCHC 33.3 (31.0-37.0) g/dL RDW Std Deviation 76.4 H (28.0-62.0) fl RDW Coeff of Trae 25 H (11.0-15.0) % Plt Count 193 (150-400) K/uL MPV 9.20 (7.40-12.00) fL Neut % (Auto) 82.5 H (48.0-80.0) % Lymph % (Auto) 7.3 L (16.0-40.0) % [place] % (Auto) 10.2 (0.0-15.0) % Eos % (Auto) 0.0 (0.0-7.0) % Baso % (Auto) 0.0 (0.0-1.5) % Neut # (Auto) 9.3 H (1.4-5.7) K/uL Lymph # (Auto) 0.8 (0.6-2.4) K/uL [place] # (Auto) 1.1 H (0.0-0.8) K/uL Eos # (Auto) 0.0 (0.0-0.7) K/uL Baso # (Auto) 0.0 (0.0-0.1) K/uL Nucleated RBC % 0.0 /100WBC Nucleated RBCs # 0 K/uL Sodium 128 L 129 L (136-146) mmol/L Potassium 5.1 5.0 (3.5-5.1) mmol/L Chloride 95 L 94 L (98-110) mmol/L Carbon Dioxide 24 24 (21-31) mmol/L BUN 34 H 31 H (6.0-23.0) mg/dL Creatinine 1.5 1.4 (0.6-1.5) mg/dL Est Cr Clr Drug Dosing 38.40 41.27 mL/min Estimated GFR (MDRD) 45.6 49.4 ml/min Glucose 161 H 137 H (60-110) mg/dL Calcium 8.6 L 8.4 L (8.8-10.8) mg/dL Med Orders - Current: Current Medications Albuterol (Ventolin Hfa) 0 gm INH Q6H PRN PRN Reason: Shortness of Breath Albuterol/Ipratropium (Duoneb 3.0-0.5 Mg/3 Ml) 3 ml NEB Q4HRRT [facility] Last Admin: 09/21/16 09:50 Dose: 3 ml Aspirin (Aspirin) 81 mg PO DAILY [facility] Last Admin: 09/21/16 08:04 Dose: 81 mg Clopidogrel Bisulfate (Plavix) 37.5 mg PO DAILY [facility] Last Admin: 09/21/16 08:04 Dose: 37.5 mg Ezetimibe (Zetia) 5 mg PO BEDTIME [facility] Last Admin: 09/20/16 23:33 Dose: 5 mg Furosemide (Lasix) 20 mg IVPUSH ONETIME ONE Stop: 09/21/16 11:41 Guaifenesin (Mucinex) 1,200 mg PO DAILY [facility] Last Admin: 09/21/16 08:04 Dose: 1,200 mg Isosorbide Mononitrate (Imdur) 60 mg PO BID [facility] Last Admin: 09/21/16 08:04 Dose: 60 mg Lisinopril (Prinivil) 10 mg PO DAILY [facility] Magnesium Hydroxide (Milk Of Magnesia) 30 ml PO DAILY PRN PRN Reason: Constipation Last Admin: 09/21/16 09:01 Dose: 30 ml Metoprolol Succinate (Toprol Xl) 100 mg PO DAILY [facility] Nicotine (Habitrol) 7 mg TRDERM DAILY [facility] Last Admin: 09/21/16 08:05 Dose: 7 mg Prednisone (Prednisone) 40 mg PO WITHBREAKFAST [facility] Ranolazine (Ranexa) 500 mg PO Q12H [facility] Last Admin: 09/21/16 08:04 Dose: 500 mg Simvastatin (Zocor) 20 mg PO BEDTIME [facility] Last Admin: 09/20/16 21:38 Dose: 20 mg Sodium Chloride (Saline Flush) 10 ml FLUSH ASDIRECTED PRN PRN Reason: Keep Vein Open Sodium Chloride (Saline Flush) 2.5 ml FLUSH ASDIRECTED PRN PRN Reason: Keep Vein Open Discontinued Medications Albuterol/Ipratropium (Duoneb 3.0-0.5 Mg/3 Ml) 3 ml NEB ONETIME ONE Stop: 09/19/16 19:38 Last Admin: 09/19/16 19:59 Dose: 3 ml Albuterol/Ipratropium (Duoneb 3.0-0.5 Mg/3 Ml) 3 ml NEB Q4HRRT PRN PRN Reason: Wheezing/SOB Albuterol/Ipratropium (Duoneb 3.0-0.5 Mg/3 Ml) 3 ml NEB Q6HRRT [facility] Last Admin: 09/20/16 10:19 Dose: 3 ml Enoxaparin Sodium (Lovenox) 40 mg SUBCUT Q24H [facility] Last Admin: 09/20/16 16:03 Dose: 40 mg Furosemide (Lasix) 40 mg IVPUSH NOW ONE Stop: 09/19/16 20:20 Last Admin: 09/19/16 20:28 Dose: 40 mg Furosemide (Lasix) 40 mg IVPUSH NOW ONE Stop: 09/20/16 10:01 Last Admin: 09/20/16 10:22 Dose: 40 mg Furosemide (Lasix) 40 mg IVPUSH NOW ONE Stop: 09/20/16 17:16 Last Admin: 09/20/16 17:43 Dose: 40 mg Sodium Chloride (Normal Saline) 1,000 mls @ 30 mls/hr IV STAT [facility] Last Admin: 09/19/16 19:58 Dose: 30 mls/hr Methylprednisolone Sodium Succinate (Solu-Medrol) 125 mg IVPUSH ONETIME ONE Stop: 09/19/16 19:38 Last Admin: 09/19/16 19:58 Dose: 125 mg - Exam Quality Assessment: DVT prophylaxis (refusing Lovenox ) Neck: supple, no JVD Lungs: Clear to auscultation, Normal respiratory effort. No: Crackles, Wheezing Cardiovascular: Regular Rate, Regular Rhythm, No Murmurs Extremities: edema (+1-2 pitting, +1 R leg and +2 to leg lower leg.) Neurological: no new focal deficit Psy/Mental Status: alert, normal affect, normal mood - Problem List & Annotations (1) Dyspnea on exertion SNOMED Code(s): 46385104 Code(s): R06.09 - OTHER FORMS OF DYSPNEA Status: Acute Current Visit: Yes (2) CHF (congestive heart failure) SNOMED Code(s): 21588597 Code(s): I50.9 - HEART FAILURE, UNSPECIFIED Status: Acute Current Visit: Yes Qualifiers: Congestive heart failure type: systolic Congestive heart failure chronicity : acute on chronic Qualified Code(s): I50.23 - Acute on chronic systolic ( congestive) heart failure (3) Elevated brain natriuretic peptide (BNP) level SNOMED Code(s): 057289656 Code(s): R79.89 - OTHER SPECIFIED ABNORMAL FINDINGS OF BLOOD CHEMISTRY Status: Acute Current Visit: No (4) Hx of aortic valve replacement SNOMED Code(s): 4265915999056, 080212879, 8444785875302 Code(s): Z95.2 - PRESENCE OF PROSTHETIC HEART VALVE Status: Chronic Current Visit: Yes (5) Carotid stenosis Status: Chronic Current Visit: Yes Qualifiers: Laterality: unspecified laterality Qualified Code(s): I65.29 - Occlusion and stenosis of unspecified carotid artery (6) COPD (chronic obstructive pulmonary disease) SNOMED Code(s): 79141545 Code(s): J44.9 - CHRONIC OBSTRUCTIVE PULMONARY DISEASE, UNSPECIFIED Status : Chronic Current Visit: Yes Qualifiers: COPD type: emphysema Emphysema type: unspecified Qualified Code(s): J43.9 - Emphysema, unspecified (7) Anemia SNOMED Code(s): 212710399 Code(s): D64.9 - ANEMIA, UNSPECIFIED Status: Chronic Current Visit: No Qualifiers: Anemia type: unspecified type Qualified Code(s): D64.9 - Anemia, unspecified - Problem List Review Problem List Initiated/Reviewed/Updated: Yes - My Orders Last 24 Hours: My Active Orders 09/20/16 11:22 Albuterol [Ventolin HFA] 0 gm INH Q6H PRN 09/20/16 11:27 Antiembolic Devices [RC] DAILY JOSHUA Hose [Antiembolic Hose] [OM.PC] Routine 09/20/16 11:30 Aspirin 81 mg PO DAILY Clopidogrel [Plavix] 37.5 mg PO DAILY Nicotine [Habitrol] 7 mg TRDERM DAILY guaiFENesin [Mucinex] 1,200 mg PO DAILY 09/20/16 11:57 Resuscitation Status Routine 09/20/16 14:00 Albuterol/Ipratropium [DuoNeb 3.0-0.5 MG/3 ML] 3 ml NEB Q4HRRT 09/20/16 21:00 Ezetimibe [Zetia] 5 mg PO BEDTIME Ranolazine [Ranexa] 500 mg PO Q12H Simvastatin [Zocor] 20 mg PO BEDTIME 09/21/16 07:57 Hemoccult [Fecal Occult Blood Collection] [RC] ASDIRECTED Hemoccult [OCCULT BLOOD DIAGNOSTIC] [OP] Routine 09/21/16 08:46 Magnesium Hydroxide [Milk of Magnesia] 30 ml PO DAILY PRN 09/21/16 11:13 RED BLOOD CELLS LP [BBK] Routine TYPE AND SCREEN [BBK] Routine RT Acapella [RESPCARE] Routine Transfuse Red Blood Cells [COMM] Routine 09/21/16 11:14 predniSONE 40 mg PO WITHBREAKFAST 09/21/16 11:30 Lisinopril [Prinivil] 10 mg PO DAILY Metoprolol Succinate [Toprol XL] 100 mg PO DAILY 09/21/16 11:40 Furosemide [Lasix] 20 mg IVPUSH ONETIME ONE 09/22/16 05:00 BMP [BASIC METABOLIC PANEL,BMP] [CHEM] DAILY CBC WITH AUTO DIFF [HEME] DAILY 09/23/16 05:00 BMP [BASIC METABOLIC PANEL,BMP] [CHEM] DAILY CBC WITH AUTO DIFF [HEME] DAILY - Plan Plan:: This 76 year old male admitted with acute exacerbation of CHF and dyspnea of exertion 1. CHF: Edema improving, likely euvolemic. Will monitor weights daily and strict I/O. Continue with compression stockings and urge elevation of legs. Most recent LV EF 37% in May 2016. Continue lisinopril, Imdur and metoprolol. 2. Hyperkalemia: resolved. 3. CAD: Continue Vytorin, Plavix and ASA. Continue Ranexa 4. COPD: Continue Nebulizers and Mucinex. Will add Acapella, saline nebulizers to help expectorate mucous. 5. Anemia: Hgb 8.4, continues to feel extreme fatigue. Will transfuse 1 unit and monitor. Lasix after unit. Reports Dr. Trejo is arranging follow up with endoscopy. VTE prophylaxis: refusing Lovenox, SCDs Dispo: 2-3 days.
[2016-09-21] MEDS ORDERED: Furosemide 20 MG/2 ML VIAL IVPUSH ONE ×2 (11:40→17:05)
[2016-09-21] MEDS: predniSONE 20 MG Tab PO SCH (12:09)
[2016-09-21] MEDS: Lisinopril 10 MG Tab PO SCH (12:09)
[2016-09-21] MEDS: Metoprolol Succinate 100 MG Tab.ER PO SCH (12:10)
[2016-09-21] MEDS: Sodium Chloride 0.9% Inhalation Soln 3 ML Neb INH SCH ×3 (12:26→19:35)
[2016-09-21] MEDS: Simvastatin 20 MG Tab PO SCH (20:35)
[2016-09-21] MEDS: Ezetimibe 10 MG Tab PO SCH (21:50)
[2016-09-22] MEDS: Sodium Chloride 0.9% Inhalation Soln 3 ML Neb INH SCH ×4 (01:00→19:24)
[2016-09-22] MEDS: Albuterol/Ipratropium 3.0-0.5 MG/3 ML Neb Soln NEB SCH ×6 (01:30→21:22)
[2016-09-22] MEDS: Nicotine 7 MG/24 Hr Patch TRDERM SCH (08:18)
[2016-09-22] MEDS: Clopidogrel 75 MG Tab PO SCH (08:19)
[2016-09-22] MEDS: Aspirin 81 MG Tab.Chew PO SCH (08:19)
[2016-09-22] MEDS: guaiFENesin 600 MG Tab.ER PO SCH (08:20)
[2016-09-22] MEDS: Isosorbide Mononitrate 60 MG Tab.ER PO SCH ×2 (08:20→20:57)
[2016-09-22] MEDS: predniSONE 20 MG Tab PO SCH (08:20)
[2016-09-22] MEDS: Lisinopril 10 MG Tab PO SCH (08:21)
[2016-09-22] MEDS: Metoprolol Succinate 100 MG Tab.ER PO SCH (08:22)
[2016-09-22] MEDS: Magnesium Hydroxide 400 MG/5 ML Susp 30 ML Cup PO PRN (08:37)
--- NOTE | 2016-09-22 13:38 | PCM.PN ---
- General Info Date of Service: 09/22/16 Admission Dx/Problem (Free Text): Admission Diagnosis/Problem Admission Diagnosis/Problem CHF, Congestive heart failure COPD, subjective shortness of breath Subjective Update: Subjectively the patient is doing better today with less swelling and his breathing is improved. Functional Status: Reports: pain controlled, tolerating diet, incentive spirometry - Review of Systems General: Reports: Weakness HEENT: Reports: no symptoms Pulmonary: Reports: cough, sputum Cardiovascular: Reports: No Symptoms Gastrointestinal: Reports: No symptoms Genitourinary: Reports: no symptoms Musculoskeletal: Reports: no symptoms Skin: Reports: no symptoms Neurological: Reports: No Symptoms Psychiatric: Reports: no symptoms - Patient Data Vitals - most recent: Last Vital Signs Temp 36.6 C 09/22/16 12:00 Pulse 86 09/22/16 12:00 Resp 22 H 09/22/16 12:00 BP 86/59 L 09/22/16 12:00 Pulse Ox 91 L 09/22/16 12:00 Weight - most recent: 70.5 kg I&O - last 24 hours: Intake & Output 09/21/16 09/22/16 09/22/16 22:59 06:59 14:59 Intake Total 1251 440 Output Total 600 350 Balance 651 90 Lab Results last 24 hrs: Laboratory Results - last 24 hr 09/21/16 09/22/16 09/22/16 Range/Units 11:35 06:00 06:00 WBC 8.44 (4.0-11.0) K/uL RBC 3.13 L (4.50-5.90) M/uL Hgb 9.5 L (13.0-17.0) g/dL Hct 28.4 L (38.0-50.0) % MCV 90.7 (80.0-98.0) fL MCH 30.4 (27.0-32.0) pg MCHC 33.5 (31.0-37.0) g/dL RDW Std Deviation 75.1 H (28.0-62.0) fl RDW Coeff of Trae 24 H (11.0-15.0) % Plt Count 152 (150-400) K/uL MPV 8.50 (7.40-12.00) fL Neut % (Auto) 80.6 H (48.0-80.0) % Lymph % (Auto) 9.4 L (16.0-40.0) % [place] % (Auto) 10.0 (0.0-15.0) % Eos % (Auto) 0.0 (0.0-7.0) % Baso % (Auto) 0.0 (0.0-1.5) % Neut # (Auto) 6.8 H (1.4-5.7) K/uL Lymph # (Auto) 0.8 (0.6-2.4) K/uL [place] # (Auto) 0.8 (0.0-0.8) K/uL Eos # (Auto) 0.0 (0.0-0.7) K/uL Baso # (Auto) 0.0 (0.0-0.1) K/uL Nucleated RBC % 0.0 /100WBC Nucleated RBCs # 0 K/uL Sodium 127 L (136-146) mmol/L Potassium 5.3 H (3.5-5.1) mmol/L Chloride 95 L (98-110) mmol/L Carbon Dioxide 26 (21-31) mmol/L BUN 30 H (6.0-23.0) mg/dL Creatinine 1.2 (0.6-1.5) mg/dL Est Cr Clr Drug Dosing 48.24 mL/min Estimated GFR (MDRD) 59.0 ml/min Glucose 96 (60-110) mg/dL Calcium 8.2 L (8.8-10.8) mg/dL Blood Type A POSITIVE Antibody Screen NEGATIVE Crossmatch See Detail Med Orders - Current: Current Medications Albuterol (Ventolin Hfa) 0 gm INH Q6H PRN PRN Reason: Shortness of Breath Albuterol/Ipratropium (Duoneb 3.0-0.5 Mg/3 Ml) 3 ml NEB Q4HRRT [facility] [place] Last Admin: 09/22/16 09:31 Dose: 3 ml Aspirin (Aspirin) 81 mg PO DAILY [facility] [place] Last Admin: 09/22/16 08:19 Dose: 81 mg Clopidogrel Bisulfate (Plavix) 37.5 mg PO DAILY [facility] [place] Last Admin: 09/22/16 08:19 Dose: 37.5 mg Ezetimibe (Zetia) 5 mg PO BEDTIME [facility] [place] Last Admin: 09/21/16 21:50 Dose: 5 mg Guaifenesin (Mucinex) 1,200 mg PO DAILY [facility] [place] Last Admin: 09/22/16 08:20 Dose: 1,200 mg Isosorbide Mononitrate (Imdur) 60 mg PO BID [facility] [place] Last Admin: 09/22/16 08:20 Dose: 60 mg Lisinopril (Prinivil) 10 mg PO DAILY [facility] [place] Last Admin: 09/22/16 08:21 Dose: Not Given Magnesium Hydroxide (Milk Of Magnesia) 30 ml PO DAILY PRN PRN Reason: Constipation Last Admin: 09/22/16 08:37 Dose: 30 ml Metoprolol Succinate (Toprol Xl) 100 mg PO DAILY [facility] [place] Last Admin: 09/22/16 08:22 Dose: Not Given Nicotine (Habitrol) 7 mg TRDERM DAILY [facility] [place] Last Admin: 09/22/16 08:18 Dose: 7 mg Prednisone (Prednisone) 40 mg PO WITHBREAKFAST [facility] [place] Last Admin: 09/22/16 08:20 Dose: 40 mg Ranolazine (Ranexa) 500 mg PO Q12H [facility] [place] Last Admin: 09/22/16 08:19 Dose: 500 mg Simvastatin (Zocor) 20 mg PO BEDTIME [facility] [place] Last Admin: 09/21/16 20:35 Dose: 20 mg Sodium Chloride (Saline Flush) 10 ml FLUSH ASDIRECTED PRN PRN Reason: Keep Vein Open Sodium Chloride (Saline Flush) 2.5 ml FLUSH ASDIRECTED PRN PRN Reason: Keep Vein Open Sodium Chloride (Sodium Chloride 0.9%) 3 ml INH Q6H [facility] [place] Last Admin: 09/22/16 12:14 Dose: 3 ml Discontinued Medications Albuterol/Ipratropium (Duoneb 3.0-0.5 Mg/3 Ml) 3 ml NEB ONETIME ONE Stop: 09/19/16 19:38 Last Admin: 09/19/16 19:59 Dose: 3 ml Albuterol/Ipratropium (Duoneb 3.0-0.5 Mg/3 Ml) 3 ml NEB Q4HRRT PRN PRN Reason: Wheezing/SOB Albuterol/Ipratropium (Duoneb 3.0-0.5 Mg/3 Ml) 3 ml NEB Q6HRRT [facility] [place] Last Admin: 09/20/16 10:19 Dose: 3 ml Enoxaparin Sodium (Lovenox) 40 mg SUBCUT Q24H [facility] Last Admin: 09/20/16 16:03 Dose: 40 mg Furosemide (Lasix) 40 mg IVPUSH NOW ONE Stop: 09/19/16 20:20 Last Admin: 09/19/16 20:28 Dose: 40 mg Furosemide (Lasix) 40 mg IVPUSH NOW ONE Stop: 09/20/16 10:01 Last Admin: 09/20/16 10:22 Dose: 40 mg Furosemide (Lasix) 40 mg IVPUSH NOW ONE Stop: 09/20/16 17:16 Last Admin: 09/20/16 17:43 Dose: 40 mg Furosemide (Lasix) 20 mg IVPUSH ONETIME ONE Stop: 09/21/16 11:41 Last Admin: 09/21/16 17:08 Dose: 20 mg Furosemide (Lasix) 20 mg IVPUSH ONETIME ONE Stop: 09/21/16 17:06 Last Admin: 09/21/16 17:56 Dose: Not Given Sodium Chloride (Normal Saline) 1,000 mls @ 30 mls/hr IV STAT [facility] Last Admin: 09/19/16 19:58 Dose: 30 mls/hr Methylprednisolone Sodium Succinate (Solu-Medrol) 125 mg IVPUSH ONETIME ONE Stop: 09/19/16 19:38 Last Admin: 09/19/16 19:58 Dose: 125 mg - Exam Quality Assessment: supplemental oxygen General: alert, oriented, cooperative, no acute distress HEENT: Pupils equal, EOMI, Mucous membr. moist/pink. No: Scleral icterus Neck: supple, trachea midline, no thyromegaly Lungs: Decreased breath sounds, Crackles (Scattered) Cardiovascular: Regular Rate, Regular Rhythm Abdomen: bowel sounds present, soft Back Exam: Other (Markedly increased AP diameter, kyphosis). No: Normal Inspection Extremities: no edema Skin: warm, dry Neurological: no new focal deficit Psy/Mental Status: alert, normal affect - Problem List & Annotations (1) CHF (congestive heart failure) SNOMED Code(s): 31411046 Code(s): I50.9 - HEART FAILURE, UNSPECIFIED Status: Acute Priority: High Current Visit: Yes Qualifiers: Congestive heart failure type: systolic Congestive heart failure chronicity : acute on chronic Qualified Code(s): I50.23 - Acute on chronic systolic ( congestive) heart failure (2) Dyspnea on exertion SNOMED Code(s): 09149196 Code(s): R06.09 - OTHER FORMS OF DYSPNEA Status: Chronic Priority: High Current Visit: Yes (3) COPD (chronic obstructive pulmonary disease) SNOMED Code(s): 34641174 Code(s): J44.9 - CHRONIC OBSTRUCTIVE PULMONARY DISEASE, UNSPECIFIED Status : Chronic Priority: High Current Visit: Yes Qualifiers: COPD type: emphysema Emphysema type: unspecified Qualified Code(s): J43.9 - Emphysema, unspecified (4) Anemia SNOMED Code(s): 637125573 Code(s): D64.9 - ANEMIA, UNSPECIFIED Status: Chronic Priority: Medium Current Visit: Yes Qualifiers: Other causes of anemia: chronic disease, other - Problem List Review Problem List Initiated/Reviewed/Updated: Yes - Plan Plan:: This 76 year old male admitted with acute exacerbation of CHF and dyspnea of exertion 1. CHF: Edema improving, likely euvolemic. Will monitor weights daily and strict I/O. Continue with compression stockings and urge elevation of legs. Most recent LV EF 37% in May 2016. Continue lisinopril, Imdur and metoprolol. 2. Hyperkalemia: resolved. 3. CAD: Continue Vytorin, Plavix and ASA. Continue Ranexa 4. COPD: Continue Nebulizers and Mucinex. Will add Acapella, saline nebulizers to help expectorate mucous. 5. Anemia: Hgb 8.4, continues to feel extreme fatigue. Will transfuse 1 unit and monitor. Lasix after unit. Reports Dr. Trejo is arranging follow up with endoscopy. VTE prophylaxis: refusing Lovenox, SCDs Dispo: 2-3 days. September 22, 2016: The patient is a 76-year-old gentleman who was admitted to hospitalization on September 19, 2016 secondary to severe shortness of breath and anasarca. The patient also had profound orthopnea and inability to ambulate without being short of breath. This is has been worse over the past couple of weeks. 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 Was noted at that time the patient had a depressed ejection fraction of 37%. Today the patient says that his breathing is much improved and his leg swelling has improved significantly as well. Upon admission the patient's B-type natriuretic peptide is greater than 3000. The patient also has a history of COPD secondary to smoking, environmental exposures and work around acids and metals and he is being treated for this with steroids. Subjectively the patient says that his breathing is improved somewhat. The patient will be continued on his SVNs, saline nebulizers. The patient's anemia due to chronic disease will be monitored very closely and currently is at 9.5 g/dL. It's patient drops below 8 he will be considered for transfusion. The patient will continue with his diuresis and diet as tolerated. I've also encouraged patient to ambulate. See the patient in follow-up in the morning and he'll likely be appropriate for discharge in 1-2 days.
[2016-09-22] MEDS: Furosemide 20 MG Tab PO SCH (17:57)
[2016-09-22] MEDS: Ezetimibe 10 MG Tab PO SCH (20:57)
[2016-09-22] MEDS: Simvastatin 20 MG Tab PO SCH (20:58)
[2016-09-23] MEDS: Sodium Chloride 0.9% Inhalation Soln 3 ML Neb INH SCH ×4 (01:08→18:01)
[2016-09-23] MEDS: Albuterol/Ipratropium 3.0-0.5 MG/3 ML Neb Soln NEB SCH ×6 (01:51→21:23)
[2016-09-23] MEDS: predniSONE 20 MG Tab PO SCH (09:14)
[2016-09-23] MEDS: Magnesium Hydroxide 400 MG/5 ML Susp 30 ML Cup PO PRN (09:14)
[2016-09-23] MEDS: Isosorbide Mononitrate 60 MG Tab.ER PO SCH ×2 (09:14→20:31)
[2016-09-23] MEDS: Aspirin 81 MG Tab.Chew PO SCH (09:14)
[2016-09-23] MEDS: Furosemide 20 MG Tab PO SCH (09:15)
[2016-09-23] MEDS: guaiFENesin 600 MG Tab.ER PO SCH (09:15)
[2016-09-23] MEDS: Clopidogrel 75 MG Tab PO SCH (09:16)
[2016-09-23] MEDS: Nicotine 7 MG/24 Hr Patch TRDERM SCH (09:17)
[2016-09-23] MEDS: Lisinopril 10 MG Tab PO SCH (09:43)
[2016-09-23] MEDS: Metoprolol Succinate 100 MG Tab.ER PO SCH (09:44)
[2016-09-23] MEDS ORDERED: Docusate Sodium 100 MG Cap PO PRN (13:01)
--- NOTE | 2016-09-23 14:03 | PCM.PN ---
- General Info Date of Service: 09/23/16 Admission Dx/Problem (Free Text): Admission Diagnosis/Problem Admission Diagnosis/Problem CHF, Congestive heart failure COPD, subjective shortness of breath Subjective Update: Subjectively the patient is doing better today with less swelling and his breathing is improved. Functional Status: Reports: pain controlled, tolerating diet, ambulating - Review of Systems General: Reports: Weakness HEENT: Reports: no symptoms Pulmonary: Reports: shortness of breath. Denies: wheezing Cardiovascular: Reports: No Symptoms. Denies: Edema Gastrointestinal: Reports: No symptoms Genitourinary: Reports: no symptoms Musculoskeletal: Reports: no symptoms Skin: Reports: no symptoms Neurological: Reports: No Symptoms Psychiatric: Reports: no symptoms - Patient Data Vitals - most recent: Last Vital Signs Temp 36.5 C 09/23/16 12:00 Pulse 88 09/23/16 12:00 Resp 22 H 09/23/16 12:00 BP 92/59 L 09/23/16 12:00 Pulse Ox 91 L 09/23/16 12:00 Weight - most recent: 66.5 kg I&O - last 24 hours: Intake & Output 09/22/16 09/23/16 09/23/16 22:59 06:59 14:59 Intake Total 800 300 Output Total 700 850 Balance 100 -550 Lab Results last 24 hrs: Laboratory Results - last 24 hr 09/23/16 09/23/16 Range/Units 05:34 05:34 WBC 7.65 (4.0-11.0) K/uL RBC 3.21 L (4.50-5.90) M/uL Hgb 9.6 L (13.0-17.0) g/dL Hct 29.2 L (38.0-50.0) % MCV 91.0 (80.0-98.0) fL MCH 29.9 (27.0-32.0) pg MCHC 32.9 (31.0-37.0) g/dL RDW Std Deviation 74.1 H (28.0-62.0) fl RDW Coeff of Trae 23 H (11.0-15.0) % Plt Count 190 (150-400) K/uL MPV 9.00 (7.40-12.00) fL Neut % (Auto) 78.4 (48.0-80.0) % Lymph % (Auto) 7.6 L (16.0-40.0) % [place] % (Auto) 14.0 (0.0-15.0) % Eos % (Auto) 0.0 (0.0-7.0) % Baso % (Auto) 0.0 (0.0-1.5) % Neut # (Auto) 6.0 H (1.4-5.7) K/uL Lymph # (Auto) 0.6 (0.6-2.4) K/uL [place] # (Auto) 1.1 H (0.0-0.8) K/uL Eos # (Auto) 0.0 (0.0-0.7) K/uL Baso # (Auto) 0.0 (0.0-0.1) K/uL Nucleated RBC % 0.0 /100WBC Nucleated RBCs # 0 K/uL Sodium 127 L (136-146) mmol/L Potassium 5.1 (3.5-5.1) mmol/L Chloride 94 L (98-110) mmol/L Carbon Dioxide 30 (21-31) mmol/L BUN 27 H (6.0-23.0) mg/dL Creatinine 1.2 (0.6-1.5) mg/dL Est Cr Clr Drug Dosing 48.24 mL/min Estimated GFR (MDRD) 59.0 ml/min Glucose 112 H (60-110) mg/dL Calcium 8.1 L (8.8-10.8) mg/dL Heath Results last 24 hrs: Microbiology 09/22/16 19:25 Stool Occult Blood (HEATH) - Final Stool / Feces - Stool, Formed NEGATIVE OCCULT BLOOD Med Orders - Current: Current Medications Albuterol (Ventolin Hfa) 0 gm INH Q6H PRN PRN Reason: Shortness of Breath Albuterol/Ipratropium (Duoneb 3.0-0.5 Mg/3 Ml) 3 ml NEB Q4HRRT [facility] Last Admin: 09/23/16 13:20 Dose: 3 ml Aspirin (Aspirin) 81 mg PO DAILY [facility] Last Admin: 09/23/16 09:14 Dose: 81 mg Clopidogrel Bisulfate (Plavix) 37.5 mg PO DAILY [facility] Last Admin: 09/23/16 09:16 Dose: 37.5 mg Docusate Sodium (Colace) 100 mg PO BID [facility] Ezetimibe (Zetia) 5 mg PO BEDTIME [facility] Last Admin: 09/22/16 20:57 Dose: 5 mg Furosemide (Lasix) 20 mg PO DAILY [facility] Last Admin: 09/23/16 09:15 Dose: 20 mg Guaifenesin (Mucinex) 1,200 mg PO DAILY [facility] Last Admin: 09/23/16 09:15 Dose: 1,200 mg Isosorbide Mononitrate (Imdur) 60 mg PO BID [facility] Last Admin: 09/23/16 09:14 Dose: 60 mg Lisinopril (Prinivil) 10 mg PO DAILY [facility] Last Admin: 09/23/16 09:43 Dose: Not Given Magnesium Hydroxide (Milk Of Magnesia) 30 ml PO DAILY PRN PRN Reason: Constipation Last Admin: 09/23/16 09:14 Dose: 30 ml Metoprolol Succinate (Toprol Xl) 100 mg PO DAILY [facility] Last Admin: 09/23/16 09:44 Dose: Not Given Nicotine (Habitrol) 7 mg TRDERM DAILY [facility] Last Admin: 09/23/16 09:17 Dose: 7 mg Prednisone (Prednisone) 40 mg PO WITHBREAKFAST [facility] Last Admin: 09/23/16 09:14 Dose: 40 mg Ranolazine (Ranexa) 500 mg PO Q12H [facility] Last Admin: 09/23/16 09:15 Dose: 500 mg Simvastatin (Zocor) 20 mg PO BEDTIME [facility] Last Admin: 09/22/16 20:58 Dose: 20 mg Sodium Chloride (Saline Flush) 10 ml FLUSH ASDIRECTED PRN PRN Reason: Keep Vein Open Sodium Chloride (Saline Flush) 2.5 ml FLUSH ASDIRECTED PRN PRN Reason: Keep Vein Open Sodium Chloride (Sodium Chloride 0.9%) 3 ml INH Q6H [facility] Last Admin: 09/23/16 12:16 Dose: 3 ml Discontinued Medications Albuterol/Ipratropium (Duoneb 3.0-0.5 Mg/3 Ml) 3 ml NEB ONETIME ONE Stop: 09/19/16 19:38 Last Admin: 09/19/16 19:59 Dose: 3 ml Albuterol/Ipratropium (Duoneb 3.0-0.5 Mg/3 Ml) 3 ml NEB Q4HRRT PRN PRN Reason: Wheezing/SOB Albuterol/Ipratropium (Duoneb 3.0-0.5 Mg/3 Ml) 3 ml NEB Q6HRRT [facility] Last Admin: 09/20/16 10:19 Dose: 3 ml Docusate Sodium (Colace) 100 mg PO BID PRN PRN Reason: Constipation Last Admin: 09/23/16 13:28 Dose: 100 mg Enoxaparin Sodium (Lovenox) 40 mg SUBCUT Q24H [facility] Last Admin: 09/20/16 16:03 Dose: 40 mg Furosemide (Lasix) 40 mg IVPUSH NOW ONE Stop: 09/19/16 20:20 Last Admin: 09/19/16 20:28 Dose: 40 mg Furosemide (Lasix) 40 mg IVPUSH NOW ONE Stop: 09/20/16 10:01 Last Admin: 09/20/16 10:22 Dose: 40 mg Furosemide (Lasix) 40 mg IVPUSH NOW ONE Stop: 09/20/16 17:16 Last Admin: 09/20/16 17:43 Dose: 40 mg Furosemide (Lasix) 20 mg IVPUSH ONETIME ONE Stop: 09/21/16 11:41 Last Admin: 09/21/16 17:08 Dose: 20 mg Furosemide (Lasix) 20 mg IVPUSH ONETIME ONE Stop: 09/21/16 17:06 Last Admin: 09/21/16 17:56 Dose: Not Given Sodium Chloride (Normal Saline) 1,000 mls @ 30 mls/hr IV STAT [facility] Last Admin: 09/19/16 19:58 Dose: 30 mls/hr Methylprednisolone Sodium Succinate (Solu-Medrol) 125 mg IVPUSH ONETIME ONE Stop: 09/19/16 19:38 Last Admin: 09/19/16 19:58 Dose: 125 mg - Exam Quality Assessment: No: supplemental oxygen General: alert, oriented, cooperative, no acute distress HEENT: Pupils equal, EOMI. No: Scleral icterus Neck: supple, trachea midline. No: no thyromegaly, lymphadenopathy Lungs: Normal respiratory effort, Decreased breath sounds, Other (Increased AP diameter) Cardiovascular: Regular Rate, Regular Rhythm Abdomen: bowel sounds present, soft, no tenderness Extremities: no edema Skin: warm, dry Neurological: no new focal deficit Psy/Mental Status: alert, normal affect, normal mood - Problem List & Annotations (1) CHF (congestive heart failure) SNOMED Code(s): 23578372 Code(s): I50.9 - HEART FAILURE, UNSPECIFIED Status: Acute Priority: High Current Visit: Yes Qualifiers: Congestive heart failure type: systolic Congestive heart failure chronicity : acute on chronic Qualified Code(s): I50.23 - Acute on chronic systolic ( congestive) heart failure (2) Dyspnea on exertion SNOMED Code(s): 51173874 Code(s): R06.09 - OTHER FORMS OF DYSPNEA Status: Chronic Priority: High Current Visit: Yes (3) COPD (chronic obstructive pulmonary disease) SNOMED Code(s): 90903888 Code(s): J44.9 - CHRONIC OBSTRUCTIVE PULMONARY DISEASE, UNSPECIFIED Status : Chronic Priority: High Current Visit: Yes Qualifiers: COPD type: emphysema Emphysema type: unspecified Qualified Code(s): J43.9 - Emphysema, unspecified (4) Anemia SNOMED Code(s): 418225620 Code(s): D64.9 - ANEMIA, UNSPECIFIED Status: Chronic Priority: Medium Current Visit: Yes Qualifiers: Other causes of anemia: chronic disease, other - Problem List Review Problem List Initiated/Reviewed/Updated: Yes - My Orders Last 24 Hours: My Active Orders 09/22/16 18:00 Furosemide [Lasix] 20 mg PO DAILY 09/23/16 13:03 Docusate Sodium [Colace] 100 mg PO BID - Plan Plan:: This 76 year old male admitted with acute exacerbation of CHF and dyspnea of exertion 1. CHF: Edema improving, likely euvolemic. Will monitor weights daily and strict I/O. Continue with compression stockings and urge elevation of legs. Most recent LV EF 37% in May 2016. Continue lisinopril, Imdur and metoprolol. 2. Hyperkalemia: resolved. 3. CAD: Continue Vytorin, Plavix and ASA. Continue Ranexa 4. COPD: Continue Nebulizers and Mucinex. Will add Acapella, saline nebulizers to help expectorate mucous. 5. Anemia: Hgb 8.4, continues to feel extreme fatigue. Will transfuse 1 unit and monitor. Lasix after unit. Reports Dr. Trejo is arranging follow up with endoscopy. VTE prophylaxis: refusing Lovenox, SCDs Dispo: 2-3 days. September 22, 2016: The patient is a 76-year-old gentleman who was admitted to hospitalization on September 19, 2016 secondary to severe shortness of breath and anasarca. The patient also had profound orthopnea and inability to ambulate without being short of breath. This is has been worse over the past couple of weeks. 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 The patient has a manager of allied health services that he saw in [place] on September 14, 2016. Was noted at that time the patient had a depressed ejection fraction of 37%. Today the patient says that his breathing is much improved and his leg swelling has improved significantly as well. Upon admission the patient's B-type natriuretic peptide is greater than 3000. The patient also has a history of COPD secondary to smoking, environmental exposures and work around acids and metals and he is being treated for this with steroids. Subjectively the patient says that his breathing is improved somewhat. The patient will be continued on his SVNs, saline nebulizers. The patient's anemia due to chronic disease will be monitored very closely and currently is at 9.5 g/dL. It's patient drops below 8 he will be considered for transfusion. The patient will continue with his diuresis and diet as tolerated. I've also encouraged patient to ambulate. See the patient in follow-up in the morning and he'll likely be appropriate for discharge in 1-2 days. September 23, 2016: The patient is a 76-year-old gentleman that was admitted secondary to CHF exacerbation, COPD with shortness of breath and anasarca. Patient has been diuresed and his breathing is improving today. Patient says that he has not had a sufficient bowel movement for the past 4-5 days and will like to have something to help this. The patient says that he feels like his pressure in his abdomen that is interfering with his ability to breathe. This is happened before when he was constipated. The patient is also been very concerned about his hemoglobin and hematocrit. The patient says that he does not feel better today but he does not feel worse. He also has been watching his blood sugars very carefully and is concerned that they have been as high as 160 mg/dL. The patient says that his swelling is gone down considerably and he is on oral Lasix currently. The patient's today has a hemoglobin of 9.6 g/dL and his hematocrit is 29.2%. The patient is asymptomatic. The patient also has been noted to be hyponatremic and this may be the result of aggressive diuresis. The patient's BUN/creatinine have been stable. These will continue to be monitored very closely. The patient also has been recommended to continue on his diabetic diet as tolerated. I suspect that the patient be ready for discharge in 1-2 days. He is also been encouraged to ambulate.
[2016-09-23] MEDS: Docusate Sodium 100 MG Cap PO SCH (20:32)
[2016-09-23] MEDS: Ezetimibe 10 MG Tab PO SCH (20:32)
[2016-09-23] MEDS: Simvastatin 20 MG Tab PO SCH (20:32)
[2016-09-24] MEDS: Sodium Chloride 0.9% Inhalation Soln 3 ML Neb INH SCH ×3 (00:53→12:34)
[2016-09-24] MEDS: Albuterol/Ipratropium 3.0-0.5 MG/3 ML Neb Soln NEB SCH ×7 (01:29→21:42)
[2016-09-24 07:08] LABS: CHLORIDE,CL 93 mmol/L (98-110); SODIUM,NA 127 mmol/L (136-146)
[2016-09-24] MEDS: Clopidogrel 75 MG Tab PO SCH (08:15)
[2016-09-24] MEDS: guaiFENesin 600 MG Tab.ER PO SCH (08:15)
[2016-09-24] MEDS: Isosorbide Mononitrate 60 MG Tab.ER PO SCH ×2 (08:16→20:46)
[2016-09-24] MEDS: predniSONE 20 MG Tab PO SCH (08:16)
[2016-09-24] MEDS: Aspirin 81 MG Tab.Chew PO SCH (08:16)
[2016-09-24] MEDS: Docusate Sodium 100 MG Cap PO SCH ×2 (08:16→20:46)
[2016-09-24] MEDS: Furosemide 20 MG Tab PO SCH (08:16)
[2016-09-24] MEDS: Nicotine 7 MG/24 Hr Patch TRDERM SCH (08:17)
[2016-09-24] MEDS: Metoprolol Succinate 100 MG Tab.ER PO SCH (09:17)
--- NOTE | 2016-09-24 10:29 | PCM.PN ---
<Mary Robb - Last Filed: 09/24/16 14:04> - General Info Date of Service: 09/24/16 Subjective Update: feeling SOB. RA 02 saturation 85%. He insists on taking all his BP medications despite Functional Status: Reports: pain controlled, tolerating diet, ambulating, urinating - Review of Systems General: Reports: No Symptoms HEENT: Reports: no symptoms Pulmonary: Reports: shortness of breath Cardiovascular: Reports: No Symptoms Gastrointestinal: Reports: No symptoms Genitourinary: Reports: no symptoms Musculoskeletal: Reports: no symptoms Skin: Reports: no symptoms Neurological: Reports: No Symptoms Psychiatric: Reports: agitation - Patient Data Vitals - most recent: Last Vital Signs Temp 98.0 F 09/24/16 08:00 Pulse 91 09/24/16 09:17 Resp 18 09/24/16 08:00 BP 111/65 09/24/16 09:17 Pulse Ox 91 L 09/24/16 09:13 Weight - most recent: 66.5 kg I&O - last 24 hours: Intake & Output 09/23/16 09/24/16 09/24/16 22:59 06:59 14:59 Intake Total 1092 356 Output Total 1100 950 Balance -8 -594 Lab Results last 24 hrs: Laboratory Results - last 24 hr 09/24/16 09/24/16 Range/Units 05:16 05:16 WBC 8.02 (4.0-11.0) K/uL RBC 3.53 L (4.50-5.90) M/uL Hgb 10.7 L (13.0-17.0) g/dL Hct 32.0 L (38.0-50.0) % MCV 90.7 (80.0-98.0) fL MCH 30.3 (27.0-32.0) pg MCHC 33.4 (31.0-37.0) g/dL RDW Std Deviation 73.2 H (28.0-62.0) fl RDW Coeff of Trea 23 H (11.0-15.0) % Plt Count 234 (150-400) K/uL MPV 9.50 (7.40-12.00) fL Neut % (Auto) 76.8 (48.0-80.0) % Lymph % (Auto) 10.6 L (16.0-40.0) % Lander % (Auto) 12.6 (0.0-15.0) % Eos % (Auto) 0.0 (0.0-7.0) % Baso % (Auto) 0.0 (0.0-1.5) % Neut # (Auto) 6.2 H (1.4-5.7) K/uL Lymph # (Auto) 0.9 (0.6-2.4) K/uL Lander # (Auto) 1.0 H (0.0-0.8) K/uL Eos # (Auto) 0.0 (0.0-0.7) K/uL Baso # (Auto) 0.0 (0.0-0.1) K/uL Nucleated RBC % 0.0 /100WBC Nucleated RBCs # 0 K/uL Sodium 127 L (136-146) mmol/L Potassium 5.2 H (3.5-5.1) mmol/L Chloride 93 L (98-110) mmol/L Carbon Dioxide 28 (21-31) mmol/L BUN 22 (6.0-23.0) mg/dL Creatinine 0.9 (0.6-1.5) mg/dL Est Cr Clr Drug Dosing 64.32 mL/min Estimated GFR (MDRD) > 60.0 ml/min Glucose 87 (60-110) mg/dL Calcium 8.3 L (8.8-10.8) mg/dL Med Orders - Current: Current Medications Albuterol (Ventolin Hfa) 0 gm INH Q6H PRN PRN Reason: Shortness of Breath Albuterol/Ipratropium (Duoneb 3.0-0.5 Mg/3 Ml) 3 ml NEB Q4HRRT [facility] Last Admin: 09/24/16 07:19 Dose: Not Given Aspirin (Aspirin) 81 mg PO DAILY [facility] Last Admin: 09/24/16 08:16 Dose: 81 mg Clopidogrel Bisulfate (Plavix) 37.5 mg PO DAILY [facility] Last Admin: 09/24/16 08:15 Dose: 37.5 mg Docusate Sodium (Colace) 100 mg PO BID [facility] Last Admin: 09/24/16 08:16 Dose: 100 mg Ezetimibe (Zetia) 5 mg PO BEDTIME [facility] Last Admin: 09/23/16 20:32 Dose: 5 mg Furosemide (Lasix) 20 mg PO DAILY [facility] Last Admin: 09/24/16 08:16 Dose: 20 mg Guaifenesin (Mucinex) 1,200 mg PO DAILY [facility] Last Admin: 09/24/16 08:15 Dose: 1,200 mg Isosorbide Mononitrate (Imdur) 60 mg PO BID [facility] Last Admin: 09/24/16 08:16 Dose: 60 mg Magnesium Hydroxide (Milk Of Magnesia) 30 ml PO DAILY PRN PRN Reason: Constipation Last Admin: 09/23/16 09:14 Dose: 30 ml Metoprolol Succinate (Toprol Xl) 100 mg PO DAILY [facility] Last Admin: 09/24/16 09:17 Dose: Not Given Nicotine (Habitrol) 7 mg TRDERM DAILY [facility] Last Admin: 09/24/16 08:17 Dose: 7 mg Prednisone (Prednisone) 40 mg PO WITHBREAKFAST [facility] Last Admin: 09/24/16 08:16 Dose: 40 mg Ranolazine (Ranexa) 500 mg PO Q12H [facility] Last Admin: 09/24/16 08:15 Dose: 500 mg Simvastatin (Zocor) 20 mg PO BEDTIME [facility] Last Admin: 09/23/16 20:32 Dose: 20 mg Sodium Chloride (Saline Flush) 10 ml FLUSH ASDIRECTED PRN PRN Reason: Keep Vein Open Sodium Chloride (Saline Flush) 2.5 ml FLUSH ASDIRECTED PRN PRN Reason: Keep Vein Open Sodium Chloride (Sodium Chloride 0.9%) 3 ml INH Q6H [facility] Last Admin: 09/24/16 07:19 Dose: Not Given Discontinued Medications Albuterol/Ipratropium (Duoneb 3.0-0.5 Mg/3 Ml) 3 ml NEB ONETIME ONE Stop: 09/19/16 19:38 Last Admin: 09/19/16 19:59 Dose: 3 ml Albuterol/Ipratropium (Duoneb 3.0-0.5 Mg/3 Ml) 3 ml NEB Q4HRRT PRN PRN Reason: Wheezing/SOB Albuterol/Ipratropium (Duoneb 3.0-0.5 Mg/3 Ml) 3 ml NEB Q6HRRT [facility] Last Admin: 09/20/16 10:19 Dose: 3 ml Docusate Sodium (Colace) 100 mg PO BID PRN PRN Reason: Constipation Last Admin: 09/23/16 13:28 Dose: 100 mg Enoxaparin Sodium (Lovenox) 40 mg SUBCUT Q24H [facility] Last Admin: 09/20/16 16:03 Dose: 40 mg Furosemide (Lasix) 40 mg IVPUSH NOW ONE Stop: 09/19/16 20:20 Last Admin: 09/19/16 20:28 Dose: 40 mg Furosemide (Lasix) 40 mg IVPUSH NOW ONE Stop: 09/20/16 10:01 Last Admin: 09/20/16 10:22 Dose: 40 mg Furosemide (Lasix) 40 mg IVPUSH NOW ONE Stop: 09/20/16 17:16 Last Admin: 09/20/16 17:43 Dose: 40 mg Furosemide (Lasix) 20 mg IVPUSH ONETIME ONE Stop: 09/21/16 11:41 Last Admin: 09/21/16 17:08 Dose: 20 mg Furosemide (Lasix) 20 mg IVPUSH ONETIME ONE Stop: 09/21/16 17:06 Last Admin: 09/21/16 17:56 Dose: Not Given Sodium Chloride (Normal Saline) 1,000 mls @ 30 mls/hr IV STAT [facility] Last Admin: 09/19/16 19:58 Dose: 30 mls/hr Lisinopril (Prinivil) 10 mg PO DAILY [facility] Last Admin: 09/23/16 09:43 Dose: Not Given Methylprednisolone Sodium Succinate (Solu-Medrol) 125 mg IVPUSH ONETIME ONE Stop: 09/19/16 19:38 Last Admin: 09/19/16 19:58 Dose: 125 mg - Exam General: alert, oriented, cooperative HEENT: Pupils equal, EOMI Neck: supple, trachea midline Lungs: Decreased breath sounds Cardiovascular: Regular Rate, Regular Rhythm Abdomen: bowel sounds present, soft, no tenderness Extremities: no edema Skin: warm, dry, intact Neurological: no new focal deficit Psy/Mental Status: alert, normal affect, normal mood - Problem List Review Problem List Initiated/Reviewed/Updated: Yes - My Orders Last 24 Hours: My Active Orders 09/25/16 05:11 CBC WITH AUTO DIFF [HEME] AM 09/26/16 05:11 CBC WITH AUTO DIFF [HEME] AM 09/27/16 05:11 CBC WITH AUTO DIFF [HEME] AM - Plan Plan:: This 76 year old male admitted with acute exacerbation of CHF and dyspnea of exertion 1. CHF: Edema improving, likely euvolemic. Will monitor weights daily and strict I/O. Continue with compression stockings and urge elevation of legs. Most recent LV EF 37% in May 2016. Continue lisinopril, Imdur and metoprolol. 2. Hyperkalemia: resolved. 3. CAD: Continue Vytorin, Plavix and ASA. Continue Ranexa 4. COPD: Continue Nebulizers and Mucinex. Will add Acapella, saline nebulizers to help expectorate mucous. 5. Anemia: Hgb 8.4, continues to feel extreme fatigue. Will transfuse 1 unit and monitor. Lasix after unit. Reports Dr. Trejo is arranging follow up with endoscopy. VTE prophylaxis: refusing Lovenox, SCDs Dispo: 2-3 days. September 22, 2016: The patient is a 76-year-old gentleman who was admitted to hospitalization on September 19, 2016 secondary to severe shortness of breath and anasarca. The patient also had profound orthopnea and inability to ambulate without being short of breath. This is has been worse over the past couple of weeks. 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 The patient has a loss prevention lead that he saw in fact on September 14, 2016. Was noted at that time the patient had a depressed ejection fraction of 37%. Today the patient says that his breathing is much improved and his leg swelling has improved significantly as well. Upon admission the patient's B-type natriuretic peptide is greater than 3000. The patient also has a history of COPD secondary to smoking, environmental exposures and work around acids and metals and he is being treated for this with steroids. Subjectively the patient says that his breathing is improved somewhat. The patient will be continued on his SVNs, saline nebulizers. The patient's anemia due to chronic disease will be monitored very closely and currently is at 9.5 g/dL. It's patient drops below 8 he will be considered for transfusion. The patient will continue with his diuresis and diet as tolerated. I've also encouraged patient to ambulate. See the patient in follow-up in the morning and he'll likely be appropriate for discharge in 1-2 days. September 23, 2016: The patient is a 76-year-old gentleman that was admitted secondary to CHF exacerbation, COPD with shortness of breath and anasarca. Patient has been diuresed and his breathing is improving today. Patient says that he has not had a sufficient bowel movement for the past 4-5 days and will like to have something to help this. The patient says that he feels like his pressure in his abdomen that is interfering with his ability to breathe. This is happened before when he was constipated. The patient is also been very concerned about his hemoglobin and hematocrit. The patient says that he does not feel better today but he does not feel worse. He also has been watching his blood sugars very carefully and is concerned that they have been as high as 160 mg/dL. The patient says that his swelling is gone down considerably and he is on oral Lasix currently. The patient's today has a hemoglobin of 9.6 g/dL and his hematocrit is 29.2%. The patient is asymptomatic. The patient also has been noted to be hyponatremic and this may be the result of aggressive diuresis. The patient's BUN/creatinine have been stable. These will continue to be monitored very closely. The patient also has been recommended to continue on his diabetic diet as tolerated. I suspect that the patient be ready for discharge in 1-2 days. He is also been encouraged to ambulate. September 24, 2016 CHF: improving HTN: blood pressure on the low side: hold home meds today. Monitor BP COPD: 85% in sao2 in room air. NC oxygen placed on 2 L . He may need home oxygen. Hyperkalemia: 5.2 monitor. Anemia: Hb 10.7 Dispo tomorrow. <Joseluis Herman - Last Filed: 09/24/16 18:22> - General Info Subjective Update: I was present with the resident during history and examination. I discussed the case with the resident and agree with the findings and plan as documented in the residents note. - Patient Data Vitals - most recent: Last Vital Signs Temp 36.3 C 09/24/16 15:00 Pulse 99 09/24/16 15:00 Resp 20 09/24/16 15:00 BP 94/61 09/24/16 15:00 Pulse Ox 93 L 09/24/16 15:00 I&O - last 24 hours: Intake & Output 09/24/16 09/24/16 09/24/16 06:59 14:59 22:59 Intake Total 356 1080 Output Total 950 1150 Balance -594 -70 Lab Results last 24 hrs: Laboratory Results - last 24 hr 09/24/16 09/24/16 Range/Units 05:16 05:16 WBC 8.02 (4.0-11.0) K/uL RBC 3.53 L (4.50-5.90) M/uL Hgb 10.7 L (13.0-17.0) g/dL Hct 32.0 L (38.0-50.0) % MCV 90.7 (80.0-98.0) fL MCH 30.3 (27.0-32.0) pg MCHC 33.4 (31.0-37.0) g/dL RDW Std Deviation 73.2 H (28.0-62.0) fl RDW Coeff of Trae 23 H (11.0-15.0) % Plt Count 234 (150-400) K/uL MPV 9.50 (7.40-12.00) fL Neut % (Auto) 76.8 (48.0-80.0) % Lymph % (Auto) 10.6 L (16.0-40.0) % Lander % (Auto) 12.6 (0.0-15.0) % Eos % (Auto) 0.0 (0.0-7.0) % Baso % (Auto) 0.0 (0.0-1.5) % Neut # (Auto) 6.2 H (1.4-5.7) K/uL Lymph # (Auto) 0.9 (0.6-2.4) K/uL Lander # (Auto) 1.0 H (0.0-0.8) K/uL Eos # (Auto) 0.0 (0.0-0.7) K/uL Baso # (Auto) 0.0 (0.0-0.1) K/uL Nucleated RBC % 0.0 /100WBC Nucleated RBCs # 0 K/uL Sodium 127 L (136-146) mmol/L Potassium 5.2 H (3.5-5.1) mmol/L Chloride 93 L (98-110) mmol/L Carbon Dioxide 28 (21-31) mmol/L BUN 22 (6.0-23.0) mg/dL Creatinine 0.9 (0.6-1.5) mg/dL Est Cr Clr Drug Dosing 64.32 mL/min Estimated GFR (MDRD) > 60.0 ml/min Glucose 87 (60-110) mg/dL Calcium 8.3 L (8.8-10.8) mg/dL Med Orders - Current: Current Medications Albuterol (Ventolin Hfa) 0 gm INH Q6H PRN PRN Reason: Shortness of Breath Albuterol/Ipratropium (Duoneb 3.0-0.5 Mg/3 Ml) 3 ml NEB Q4HRRT [facility] Last Admin: 09/24/16 18:15 Dose: 3 ml Aspirin (Aspirin) 81 mg PO DAILY [facility] Last Admin: 09/24/16 08:16 Dose: 81 mg Clopidogrel Bisulfate (Plavix) 37.5 mg PO DAILY [facility] Last Admin: 09/24/16 08:15 Dose: 37.5 mg Docusate Sodium (Colace) 100 mg PO BID [facility] Last Admin: 09/24/16 08:16 Dose: 100 mg Ezetimibe (Zetia) 5 mg PO BEDTIME [facility] Last Admin: 09/23/16 20:32 Dose: 5 mg Furosemide (Lasix) 20 mg PO DAILY [facility] Last Admin: 09/24/16 08:16 Dose: 20 mg Guaifenesin (Mucinex) 1,200 mg PO DAILY [facility] Last Admin: 09/24/16 08:15 Dose: 1,200 mg Isosorbide Mononitrate (Imdur) 60 mg PO BID [facility] Last Admin: 09/24/16 08:16 Dose: 60 mg Magnesium Hydroxide (Milk Of Magnesia) 30 ml PO DAILY PRN PRN Reason: Constipation Last Admin: 09/23/16 09:14 Dose: 30 ml Metoprolol Succinate (Toprol Xl) 100 mg PO DAILY [facility] Last Admin: 09/24/16 09:17 Dose: Not Given Nicotine (Habitrol) 7 mg TRDERM DAILY [facility] Last Admin: 09/24/16 08:17 Dose: 7 mg Prednisone (Prednisone) 40 mg PO WITHBREAKFAST [facility] Last Admin: 09/24/16 08:16 Dose: 40 mg Ranolazine (Ranexa) 500 mg PO Q12H [facility] Last Admin: 09/24/16 08:15 Dose: 500 mg Simvastatin (Zocor) 20 mg PO BEDTIME [facility] Last Admin: 09/23/16 20:32 Dose: 20 mg Sodium Chloride (Saline Flush) 10 ml FLUSH ASDIRECTED PRN PRN Reason: Keep Vein Open Sodium Chloride (Saline Flush) 2.5 ml FLUSH ASDIRECTED PRN PRN Reason: Keep Vein Open Sodium Chloride (Sodium Chloride 0.9%) 3 ml INH Q6H [facility] Last Admin: 09/24/16 12:34 Dose: Not Given Discontinued Medications Albuterol/Ipratropium (Duoneb 3.0-0.5 Mg/3 Ml) 3 ml NEB ONETIME ONE Stop: 09/19/16 19:38 Last Admin: 09/19/16 19:59 Dose: 3 ml Albuterol/Ipratropium (Duoneb 3.0-0.5 Mg/3 Ml) 3 ml NEB Q4HRRT PRN PRN Reason: Wheezing/SOB Albuterol/Ipratropium (Duoneb 3.0-0.5 Mg/3 Ml) 3 ml NEB Q6HRRT [facility] Last Admin: 09/20/16 10:19 Dose: 3 ml Docusate Sodium (Colace) 100 mg PO BID PRN PRN Reason: Constipation Last Admin: 09/23/16 13:28 Dose: 100 mg Enoxaparin Sodium (Lovenox) 40 mg SUBCUT Q24H [facility] Last Admin: 09/20/16 16:03 Dose: 40 mg Furosemide (Lasix) 40 mg IVPUSH NOW ONE Stop: 09/19/16 20:20 Last Admin: 09/19/16 20:28 Dose: 40 mg Furosemide (Lasix) 40 mg IVPUSH NOW ONE Stop: 09/20/16 10:01 Last Admin: 09/20/16 10:22 Dose: 40 mg Furosemide (Lasix) 40 mg IVPUSH NOW ONE Stop: 09/20/16 17:16 Last Admin: 09/20/16 17:43 Dose: 40 mg Furosemide (Lasix) 20 mg IVPUSH ONETIME ONE Stop: 09/21/16 11:41 Last Admin: 09/21/16 17:08 Dose: 20 mg Furosemide (Lasix) 20 mg IVPUSH ONETIME ONE Stop: 09/21/16 17:06 Last Admin: 09/21/16 17:56 Dose: Not Given Sodium Chloride (Normal Saline) 1,000 mls @ 30 mls/hr IV STAT [facility] Last Admin: 09/19/16 19:58 Dose: 30 mls/hr Lisinopril (Prinivil) 10 mg PO DAILY [facility] Last Admin: 09/23/16 09:43 Dose: Not Given Methylprednisolone Sodium Succinate (Solu-Medrol) 125 mg IVPUSH ONETIME ONE Stop: 09/19/16 19:38 Last Admin: 09/19/16 19:58 Dose: 125 mg - Problem List & Annotations (1) CHF (congestive heart failure) SNOMED Code(s): 59803570 Code(s): I50.9 - HEART FAILURE, UNSPECIFIED Status: Acute Priority: High Current Visit: Yes Qualifiers: Congestive heart failure type: systolic Congestive heart failure chronicity : acute on chronic Qualified Code(s): I50.23 - Acute on chronic systolic ( congestive) heart failure (2) Dyspnea on exertion SNOMED Code(s): 75232482 Code(s): R06.09 - OTHER FORMS OF DYSPNEA Status: Chronic Priority: High Current Visit: Yes (3) COPD (chronic obstructive pulmonary disease) SNOMED Code(s): 66075111 Code(s): J44.9 - CHRONIC OBSTRUCTIVE PULMONARY DISEASE, UNSPECIFIED Status : Chronic Priority: High Current Visit: Yes Qualifiers: COPD type: emphysema Emphysema type: unspecified Qualified Code(s): J43.9 - Emphysema, unspecified (4) Anemia SNOMED Code(s): 629882178 Code(s): D64.9 - ANEMIA, UNSPECIFIED Status: Chronic Priority: Medium Current Visit: Yes Qualifiers: Other causes of anemia: chronic disease, other
[2016-09-24] MEDS: Simvastatin 20 MG Tab PO SCH (20:46)
[2016-09-24] MEDS: Ezetimibe 10 MG Tab PO SCH (20:46)
[2016-09-25] MEDS: Sodium Chloride 0.9% Inhalation Soln 3 ML Neb INH SCH ×4 (01:12→12:57)
[2016-09-25] MEDS: Albuterol/Ipratropium 3.0-0.5 MG/3 ML Neb Soln NEB SCH ×6 (04:47→21:40)
[2016-09-25] MEDS: Isosorbide Mononitrate 60 MG Tab.ER PO SCH (09:08)
[2016-09-25] MEDS: guaiFENesin 600 MG Tab.ER PO SCH (09:09)
[2016-09-25] MEDS: Aspirin 81 MG Tab.Chew PO SCH (09:09)
[2016-09-25] MEDS: Clopidogrel 75 MG Tab PO SCH (09:09)
[2016-09-25] MEDS: Furosemide 20 MG Tab PO SCH (09:11)
[2016-09-25] MEDS: predniSONE 20 MG Tab PO SCH (09:11)
[2016-09-25] MEDS: Docusate Sodium 100 MG Cap PO SCH ×2 (09:11→21:06)
[2016-09-25] MEDS: Nicotine 7 MG/24 Hr Patch TRDERM SCH (09:11)
[2016-09-25] MEDS: Metoprolol Succinate 100 MG Tab.ER PO SCH (09:19)
[2016-09-25 10:39] LABS: CHLORIDE,CL 92 mmol/L (98-110); SODIUM,NA 125 mmol/L (136-146)
--- NOTE | 2016-09-25 16:00 | PCM.PN ---
- General Info Date of Service: 09/25/16 Admission Dx/Problem (Free Text): Admission Diagnosis/Problem Admission Diagnosis/Problem CHF, Congestive heart failure COPD, subjective shortness of breath Subjective Update: I was present with the resident during history and examination. I discussed the case with the resident and agree with the findings and plan as documented in the residents note. September 25, 2016: The patient feels somewhat better today subjectively although he is still complaining of shortness of breath and is very concerned about his blood pressure. Functional Status: Reports: pain controlled, tolerating diet - Review of Systems General: Reports: Weakness, Fatigue HEENT: Reports: no symptoms Pulmonary: Reports: shortness of breath Cardiovascular: Reports: Edema Gastrointestinal: Reports: Abdominal pain. Denies: Nausea, Vomiting Genitourinary: Reports: no symptoms Musculoskeletal: Reports: no symptoms Skin: Reports: no symptoms Neurological: Reports: No Symptoms Psychiatric: Reports: no symptoms - Patient Data Vitals - most recent: Last Vital Signs Temp 36.4 C 09/25/16 12:00 Pulse 95 09/25/16 12:00 Resp 20 09/25/16 12:00 BP 82/60 L 09/25/16 12:00 Pulse Ox 88 L 09/25/16 12:00 Weight - most recent: 66 kg I&O - last 24 hours: Intake & Output 09/25/16 09/25/16 09/25/16 06:59 14:59 22:59 Intake Total 880 Output Total 920 Balance -40 Lab Results last 24 hrs: Laboratory Results - last 24 hr 09/25/16 09/25/16 Range/Units 04:58 04:58 WBC 9.44 (4.0-11.0) K/uL RBC 3.37 L (4.50-5.90) M/uL Hgb 10.0 L (13.0-17.0) g/dL Hct 30.2 L (38.0-50.0) % MCV 89.6 (80.0-98.0) fL MCH 29.7 (27.0-32.0) pg MCHC 33.1 (31.0-37.0) g/dL RDW Std Deviation 71.6 H (28.0-62.0) fl RDW Coeff of Trae 22 H (11.0-15.0) % Plt Count 216 (150-400) K/uL MPV 8.60 (7.40-12.00) fL Neut % (Auto) 81.7 H (48.0-80.0) % Lymph % (Auto) 7.9 L (16.0-40.0) % [place] % (Auto) 10.3 (0.0-15.0) % Eos % (Auto) 0.1 (0.0-7.0) % Baso % (Auto) 0.0 (0.0-1.5) % Neut # (Auto) 7.7 H (1.4-5.7) K/uL Lymph # (Auto) 0.8 (0.6-2.4) K/uL [place] # (Auto) 1.0 H (0.0-0.8) K/uL Eos # (Auto) 0.0 (0.0-0.7) K/uL Baso # (Auto) 0.0 (0.0-0.1) K/uL Nucleated RBC % 0.0 /100WBC Nucleated RBCs # 0 K/uL Sodium 125 L (136-146) mmol/L Potassium 5.1 (3.5-5.1) mmol/L Chloride 92 L (98-110) mmol/L Carbon Dioxide 29 (21-31) mmol/L BUN 20 (6.0-23.0) mg/dL Creatinine 0.9 (0.6-1.5) mg/dL Est Cr Clr Drug Dosing 64.32 mL/min Estimated GFR (MDRD) > 60.0 ml/min Glucose 75 (60-110) mg/dL Calcium 8.0 L (8.8-10.8) mg/dL Med Orders - Current: Current Medications Albuterol (Ventolin Hfa) 0 gm INH Q6H PRN PRN Reason: Shortness of Breath Albuterol/Ipratropium (Duoneb 3.0-0.5 Mg/3 Ml) 3 ml NEB Q4HRRT [facility] Last Admin: 09/25/16 14:27 Dose: 3 ml Aspirin (Aspirin) 81 mg PO DAILY [facility] Last Admin: 09/25/16 09:09 Dose: 81 mg Clopidogrel Bisulfate (Plavix) 37.5 mg PO DAILY [facility] Last Admin: 09/25/16 09:09 Dose: 37.5 mg Docusate Sodium (Colace) 100 mg PO BID [facility] Last Admin: 09/25/16 09:11 Dose: 100 mg Ezetimibe (Zetia) 5 mg PO BEDTIME [facility] Last Admin: 09/24/16 20:46 Dose: 5 mg Furosemide (Lasix) 20 mg PO DAILY [facility] Last Admin: 09/25/16 09:11 Dose: 20 mg Guaifenesin (Mucinex) 1,200 mg PO DAILY [facility] Last Admin: 09/25/16 09:09 Dose: 1,200 mg Isosorbide Mononitrate (Imdur) 30 mg PO BID [facility] Magnesium Hydroxide (Milk Of Magnesia) 30 ml PO DAILY PRN PRN Reason: Constipation Last Admin: 09/23/16 09:14 Dose: 30 ml Metoprolol Succinate (Toprol Xl) 100 mg PO DAILY [facility] Last Admin: 09/25/16 09:19 Dose: Not Given Nicotine (Habitrol) 7 mg TRDERM DAILY [facility] Last Admin: 09/25/16 09:11 Dose: 7 mg Prednisone (Prednisone) 40 mg PO WITHBREAKFAST [facility] Last Admin: 09/25/16 09:11 Dose: 40 mg Ranolazine (Ranexa) 500 mg PO Q12H [facility] Last Admin: 09/25/16 09:08 Dose: 500 mg Simvastatin (Zocor) 20 mg PO BEDTIME [facility] Last Admin: 09/24/16 20:46 Dose: 20 mg Sodium Chloride (Saline Flush) 10 ml FLUSH ASDIRECTED PRN PRN Reason: Keep Vein Open Sodium Chloride (Saline Flush) 2.5 ml FLUSH ASDIRECTED PRN PRN Reason: Keep Vein Open Sodium Chloride (Sodium Chloride 0.9%) 3 ml INH Q6H [facility] Last Admin: 09/25/16 12:57 Dose: Not Given Discontinued Medications Albuterol/Ipratropium (Duoneb 3.0-0.5 Mg/3 Ml) 3 ml NEB ONETIME ONE Stop: 09/19/16 19:38 Last Admin: 09/19/16 19:59 Dose: 3 ml Albuterol/Ipratropium (Duoneb 3.0-0.5 Mg/3 Ml) 3 ml NEB Q4HRRT PRN PRN Reason: Wheezing/SOB Albuterol/Ipratropium (Duoneb 3.0-0.5 Mg/3 Ml) 3 ml NEB Q6HRRT [facility] Last Admin: 09/20/16 10:19 Dose: 3 ml Docusate Sodium (Colace) 100 mg PO BID PRN PRN Reason: Constipation Last Admin: 09/23/16 13:28 Dose: 100 mg Enoxaparin Sodium (Lovenox) 40 mg SUBCUT Q24H [facility] Last Admin: 09/20/16 16:03 Dose: 40 mg Furosemide (Lasix) 40 mg IVPUSH NOW ONE Stop: 09/19/16 20:20 Last Admin: 09/19/16 20:28 Dose: 40 mg Furosemide (Lasix) 40 mg IVPUSH NOW ONE Stop: 09/20/16 10:01 Last Admin: 09/20/16 10:22 Dose: 40 mg Furosemide (Lasix) 40 mg IVPUSH NOW ONE Stop: 09/20/16 17:16 Last Admin: 09/20/16 17:43 Dose: 40 mg Furosemide (Lasix) 20 mg IVPUSH ONETIME ONE Stop: 09/21/16 11:41 Last Admin: 09/21/16 17:08 Dose: 20 mg Furosemide (Lasix) 20 mg IVPUSH ONETIME ONE Stop: 09/21/16 17:06 Last Admin: 09/21/16 17:56 Dose: Not Given Sodium Chloride (Normal Saline) 1,000 mls @ 30 mls/hr IV STAT [facility] Last Admin: 09/19/16 19:58 Dose: 30 mls/hr Isosorbide Mononitrate (Imdur) 60 mg PO BID [facility] Last Admin: 09/25/16 09:08 Dose: 60 mg Isosorbide Mononitrate (Imdur) 30 mg PO DAILY [facility] Lisinopril (Prinivil) 10 mg PO DAILY [facility] Last Admin: 09/23/16 09:43 Dose: Not Given Methylprednisolone Sodium Succinate (Solu-Medrol) 125 mg IVPUSH ONETIME ONE Stop: 09/19/16 19:38 Last Admin: 09/19/16 19:58 Dose: 125 mg - Exam Quality Assessment: No: supplemental oxygen General: alert, oriented, cooperative, no acute distress HEENT: Pupils equal, Pupils reactive, Mucous membr. moist/pink Neck: supple, trachea midline. No: thyromegaly Lungs: Clear to auscultation, Normal respiratory effort Cardiovascular: Regular Rate, Regular Rhythm Abdomen: bowel sounds present, soft, no tenderness Extremities: no edema Skin: warm, dry Neurological: no new focal deficit Psy/Mental Status: alert, normal affect - Problem List & Annotations (1) CHF (congestive heart failure) SNOMED Code(s): 59344153 Code(s): I50.9 - HEART FAILURE, UNSPECIFIED Status: Acute Priority: High Current Visit: Yes Qualifiers: Congestive heart failure type: systolic Congestive heart failure chronicity : acute on chronic Qualified Code(s): I50.23 - Acute on chronic systolic ( congestive) heart failure (2) Dyspnea on exertion SNOMED Code(s): 98858954 Code(s): R06.09 - OTHER FORMS OF DYSPNEA Status: Chronic Priority: High Current Visit: Yes (3) COPD (chronic obstructive pulmonary disease) SNOMED Code(s): 02161108 Code(s): J44.9 - CHRONIC OBSTRUCTIVE PULMONARY DISEASE, UNSPECIFIED Status : Chronic Priority: High Current Visit: Yes Qualifiers: COPD type: emphysema Emphysema type: unspecified Qualified Code(s): J43.9 - Emphysema, unspecified (4) Anemia SNOMED Code(s): 789677803 Code(s): D64.9 - ANEMIA, UNSPECIFIED Status: Chronic Priority: Medium Current Visit: Yes Qualifiers: Other causes of anemia: chronic disease, other - Problem List Review Problem List Initiated/Reviewed/Updated: Yes - My Orders Last 24 Hours: My Active Orders 09/25/16 21:00 Isosorbide Mononitrate [Imdur] 30 mg PO BID - Plan Plan:: This 76 year old male admitted with acute exacerbation of CHF and dyspnea of exertion 1. CHF: Edema improving, likely euvolemic. Will monitor weights daily and strict I/O. Continue with compression stockings and urge elevation of legs. Most recent LV EF 37% in May 2016. Continue lisinopril, Imdur and metoprolol. 2. Hyperkalemia: resolved. 3. CAD: Continue Vytorin, Plavix and ASA. Continue Ranexa 4. COPD: Continue Nebulizers and Mucinex. Will add Acapella, saline nebulizers to help expectorate mucous. 5. Anemia: Hgb 8.4, continues to feel extreme fatigue. Will transfuse 1 unit and monitor. Lasix after unit. Reports Dr. Trejo is arranging follow up with endoscopy. VTE prophylaxis: refusing Lovenox, SCDs Dispo: 2-3 days. September 22, 2016: The patient is a 76-year-old gentleman who was admitted to hospitalization on September 19, 2016 secondary to severe shortness of breath and anasarca. The patient also had profound orthopnea and inability to ambulate without being short of breath. This is has been worse over the past couple of weeks. 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 Was noted at that time the patient had a depressed ejection fraction of 37%. Today the patient says that his breathing is much improved and his leg swelling has improved significantly as well. Upon admission the patient's B-type natriuretic peptide is greater than 3000. The patient also has a history of COPD secondary to smoking, environmental exposures and work around acids and metals and he is being treated for this with steroids. Subjectively the patient says that his breathing is improved somewhat. The patient will be continued on his SVNs, saline nebulizers. The patient's anemia due to chronic disease will be monitored very closely and currently is at 9.5 g/dL. It's patient drops below 8 he will be considered for transfusion. The patient will continue with his diuresis and diet as tolerated. I've also encouraged patient to ambulate. See the patient in follow-up in the morning and he'll likely be appropriate for discharge in 1-2 days. September 23, 2016: The patient is a 76-year-old gentleman that was admitted secondary to CHF exacerbation, COPD with shortness of breath and anasarca. Patient has been diuresed and his breathing is improving today. Patient says that he has not had a sufficient bowel movement for the past 4-5 days and will like to have something to help this. The patient says that he feels like his pressure in his abdomen that is interfering with his ability to breathe. This is happened before when he was constipated. The patient is also been very concerned about his hemoglobin and hematocrit. The patient says that he does not feel better today but he does not feel worse. He also has been watching his blood sugars very carefully and is concerned that they have been as high as 160 mg/dL. The patient says that his swelling is gone down considerably and he is on oral Lasix currently. The patient's today has a hemoglobin of 9.6 g/dL and his hematocrit is 29.2%. The patient is asymptomatic. The patient also has been noted to be hyponatremic and this may be the result of aggressive diuresis. The patient's BUN/creatinine have been stable. These will continue to be monitored very closely. The patient also has been recommended to continue on his diabetic diet as tolerated. I suspect that the patient be ready for discharge in 1-2 days. He is also been encouraged to ambulate. September 24, 2016 CHF: improving HTN: blood pressure on the low side: hold home meds today. Monitor BP COPD: 85% in sao2 in room air. NC oxygen placed on 2 L . He may need home oxygen. Hyperkalemia: 5.2 monitor. Anemia: Hb 10.7 Dispo tomorrow. September 25, 2016: The patient is a 76-year-old gentleman who was admitted initially secondary to COPD, CABG with aortic valve replacement and had CHF with anasarca. The patient today still has continued shortness of breath and he is worried about being discharged if his blood pressure is too low. Interestingly, the patient has demanded to take his blood pressure medications even though his systolic blood pressure has been around 80 mmHg systolic. The patient at this time says that he does not feel well enough to go home and he has been talking about having an appointment in [place] for possible EGD and colonoscopy as he believes that there is something wrong internally and it will be done here as the patient is considered too high risk secondary to his comorbidities. The patient's son has also been worried about his father's hypertension. I have discussed with the patient the option of going to [place] for [facility] prior to going home is patient lives by himself and the patient says that this is "a machine" for him and adamantly refuses for now the patient's antihypertensive medications have been held secondary to his blood pressure being low and I have reduced the dose of Imdur that he takes for his coronary artery disease. Patient says that he has been up walking around and still has problems with shortness of breath and feels like there is something pushing on his stomach where his ventral hernia is and he has had some mild pain with this. The patient's blood pressure will be monitored closely and his antihypertensive medication should be adjusted. I I suspect that there is altered motive for the patient staying although the patient does live alone and I would like him to be safe before he is discharged. The patient' s hemoglobin has been stable and is currently at 10.0 g/dL. The should be monitored. Patient also has been hyponatremic and currently his sodium is 125 mmol per liter. Both of these are likely chronic in nature for this patient. The patient's blood pressure today is 82/60 mmHg and this was at noon today. His oxygen saturations have been trending down. I will order a chest x-ray in the morning to ensure that the patient is now developing a pneumonia or has any other acute cardiopulmonary disease.
[2016-09-25] MEDS ORDERED: Isosorbide Mononitrate 30 MG Tab.ER PO SCH (21:00)
[2016-09-25] MEDS: Ezetimibe 10 MG Tab PO SCH (21:06)
[2016-09-25] MEDS: Simvastatin 20 MG Tab PO SCH (21:06)
[2016-09-25] MEDS: Isosorbide Mononitrate 30 MG Tab.ER PO SCH (21:06)
[2016-09-26] MEDS: Sodium Chloride 0.9% Inhalation Soln 3 ML Neb INH SCH ×6 (01:33→23:33)
[2016-09-26] MEDS: Albuterol/Ipratropium 3.0-0.5 MG/3 ML Neb Soln NEB SCH ×6 (03:50→21:57)
[2016-09-26] MEDS: guaiFENesin 600 MG Tab.ER PO SCH (08:07)
[2016-09-26] MEDS: Aspirin 81 MG Tab.Chew PO SCH (08:07)
[2016-09-26] MEDS: Isosorbide Mononitrate 30 MG Tab.ER PO SCH ×2 (08:08→21:21)
[2016-09-26] MEDS: predniSONE 20 MG Tab PO SCH (08:08)
[2016-09-26] MEDS: Nicotine 7 MG/24 Hr Patch TRDERM SCH (08:08)
[2016-09-26] MEDS: Metoprolol Succinate 100 MG Tab.ER PO SCH (08:11)
[2016-09-26] MEDS: Docusate Sodium 100 MG Cap PO SCH ×2 (08:25→21:21)
[2016-09-26] MEDS: Clopidogrel 75 MG Tab PO SCH (08:25)
[2016-09-26] MEDS: Furosemide 20 MG Tab PO SCH (08:25)
[2016-09-26] MEDS ORDERED: Magnesium Citrate Solution 296 ML Bottle PO ONE (10:31)
--- NOTE | 2016-09-26 10:40 | PCM.PN ---
- General Info Date of Service: 09/26/16 Subjective Update: he complains that his room is cold. He states that he has not had a BM x three days and feels constipated. He has a chronic cough and is chronically dyspneic especially with minimal exertion. He thinks that he may be close to baseline. His cough is non productive. - Patient Data Vitals - most recent: Last Vital Signs Temp 96.7 F 09/26/16 08:00 Pulse 105 H 09/26/16 08:11 Resp 20 09/26/16 08:00 BP 120/90 09/26/16 08:11 Pulse Ox 95 09/26/16 08:00 Weight - most recent: 66.4 kg I&O - last 24 hours: Intake & Output 09/25/16 09/26/16 09/26/16 22:59 06:59 14:59 Intake Total 980 998 Output Total 1305 775 Balance -325 223 Lab Results last 24 hrs: Laboratory Results - last 24 hr 09/25/16 09/26/16 Range/Units 04:58 04:54 WBC 9.06 (4.0-11.0) K/uL RBC 3.76 L (4.50-5.90) M/uL Hgb 11.3 L (13.0-17.0) g/dL Hct 33.3 L (38.0-50.0) % MCV 88.6 (80.0-98.0) fL MCH 30.1 (27.0-32.0) pg MCHC 33.9 (31.0-37.0) g/dL RDW Std Deviation 69.0 H (28.0-62.0) fl RDW Coeff of Trae 22 H (11.0-15.0) % Plt Count 248 (150-400) K/uL MPV 8.80 (7.40-12.00) fL Neut % (Auto) 76.9 (48.0-80.0) % Lymph % (Auto) 11.1 L (16.0-40.0) % Barbour % (Auto) 11.7 (0.0-15.0) % Eos % (Auto) 0.3 (0.0-7.0) % Baso % (Auto) 0.0 (0.0-1.5) % Neut # (Auto) 7.0 H (1.4-5.7) K/uL Lymph # (Auto) 1.0 (0.6-2.4) K/uL Barbour # (Auto) 1.1 H (0.0-0.8) K/uL Eos # (Auto) 0.0 (0.0-0.7) K/uL Baso # (Auto) 0.0 (0.0-0.1) K/uL Nucleated RBC % 0.0 /100WBC Nucleated RBCs # 0 K/uL Sodium 125 L (136-146) mmol/L Potassium 5.1 (3.5-5.1) mmol/L Chloride 92 L (98-110) mmol/L Carbon Dioxide 29 (21-31) mmol/L BUN 20 (6.0-23.0) mg/dL Creatinine 0.9 (0.6-1.5) mg/dL Est Cr Clr Drug Dosing 64.32 mL/min Estimated GFR (MDRD) > 60.0 ml/min Glucose 75 (60-110) mg/dL Calcium 8.0 L (8.8-10.8) mg/dL Med Orders - Current: Current Medications Albuterol (Ventolin Hfa) 0 gm INH Q6H PRN PRN Reason: Shortness of Breath Albuterol/Ipratropium (Duoneb 3.0-0.5 Mg/3 Ml) 3 ml NEB Q4HRRT [facility] Last Admin: 09/26/16 07:34 Dose: Not Given Aspirin (Aspirin) 81 mg PO DAILY [facility] Last Admin: 09/26/16 08:07 Dose: 81 mg Clopidogrel Bisulfate (Plavix) 37.5 mg PO DAILY [facility] Last Admin: 09/26/16 08:25 Dose: 37.5 mg Docusate Sodium (Colace) 100 mg PO BID [facility] Last Admin: 09/26/16 08:25 Dose: 100 mg Ezetimibe (Zetia) 5 mg PO BEDTIME [facility] Last Admin: 09/25/16 21:06 Dose: 5 mg Furosemide (Lasix) 20 mg PO DAILY [facility] Last Admin: 09/26/16 08:25 Dose: 20 mg Guaifenesin (Mucinex) 1,200 mg PO DAILY [facility] Last Admin: 09/26/16 08:07 Dose: 1,200 mg Isosorbide Mononitrate (Imdur) 30 mg PO BID [facility] Last Admin: 09/26/16 08:08 Dose: 30 mg Magnesium Hydroxide (Milk Of Magnesia) 30 ml PO DAILY PRN PRN Reason: Constipation Last Admin: 09/23/16 09:14 Dose: 30 ml Metoprolol Succinate (Toprol Xl) 100 mg PO DAILY [facility] Last Admin: 09/26/16 08:11 Dose: 100 mg Nicotine (Habitrol) 7 mg TRDERM DAILY [facility] Last Admin: 09/26/16 08:08 Dose: 7 mg Prednisone (Prednisone) 40 mg PO WITHBREAKFAST [facility] Last Admin: 09/26/16 08:08 Dose: 40 mg Ranolazine (Ranexa) 500 mg PO Q12H [facility] Last Admin: 09/26/16 08:07 Dose: 500 mg Simvastatin (Zocor) 20 mg PO BEDTIME [facility] Last Admin: 09/25/16 21:06 Dose: 20 mg Sodium Chloride (Saline Flush) 10 ml FLUSH ASDIRECTED PRN PRN Reason: Keep Vein Open Sodium Chloride (Saline Flush) 2.5 ml FLUSH ASDIRECTED PRN PRN Reason: Keep Vein Open Sodium Chloride (Sodium Chloride 0.9%) 3 ml INH Q6H [facility] Last Admin: 09/26/16 09:02 Dose: Not Given Discontinued Medications Albuterol/Ipratropium (Duoneb 3.0-0.5 Mg/3 Ml) 3 ml NEB ONETIME ONE Stop: 09/19/16 19:38 Last Admin: 09/19/16 19:59 Dose: 3 ml Albuterol/Ipratropium (Duoneb 3.0-0.5 Mg/3 Ml) 3 ml NEB Q4HRRT PRN PRN Reason: Wheezing/SOB Albuterol/Ipratropium (Duoneb 3.0-0.5 Mg/3 Ml) 3 ml NEB Q6HRRT [facility] Last Admin: 09/20/16 10:19 Dose: 3 ml Docusate Sodium (Colace) 100 mg PO BID PRN PRN Reason: Constipation Last Admin: 09/23/16 13:28 Dose: 100 mg Enoxaparin Sodium (Lovenox) 40 mg SUBCUT Q24H [facility] Last Admin: 09/20/16 16:03 Dose: 40 mg Furosemide (Lasix) 40 mg IVPUSH NOW ONE Stop: 09/19/16 20:20 Last Admin: 09/19/16 20:28 Dose: 40 mg Furosemide (Lasix) 40 mg IVPUSH NOW ONE Stop: 09/20/16 10:01 Last Admin: 09/20/16 10:22 Dose: 40 mg Furosemide (Lasix) 40 mg IVPUSH NOW ONE Stop: 09/20/16 17:16 Last Admin: 09/20/16 17:43 Dose: 40 mg Furosemide (Lasix) 20 mg IVPUSH ONETIME ONE Stop: 09/21/16 11:41 Last Admin: 09/21/16 17:08 Dose: 20 mg Furosemide (Lasix) 20 mg IVPUSH ONETIME ONE Stop: 09/21/16 17:06 Last Admin: 09/21/16 17:56 Dose: Not Given Sodium Chloride (Normal Saline) 1,000 mls @ 30 mls/hr IV STAT [facility] Last Admin: 09/19/16 19:58 Dose: 30 mls/hr Isosorbide Mononitrate (Imdur) 60 mg PO BID [facility] Last Admin: 09/25/16 09:08 Dose: 60 mg Isosorbide Mononitrate (Imdur) 30 mg PO DAILY [facility] Lisinopril (Prinivil) 10 mg PO DAILY [facility] Last Admin: 09/23/16 09:43 Dose: Not Given Magnesium Citrate (Citrate Of Magnesia) 296 ml PO ONETIME ONE Stop: 09/26/16 10:32 Methylprednisolone Sodium Succinate (Solu-Medrol) 125 mg IVPUSH ONETIME ONE Stop: 09/19/16 19:38 Last Admin: 09/19/16 19:58 Dose: 125 mg - Exam General: alert, oriented Neck: trachea midline Lungs: Other (some prolongation of expiration; faint scattered expiratory rhonchi with deep breaths.) Cardiovascular: Regular Rate, Regular Rhythm Abdomen: soft, other (feeling mildly tender and fullness epigastric region. ) - Problem List & Annotations (1) Constipation SNOMED Code(s): 21968828 Code(s): K59.00 - CONSTIPATION, UNSPECIFIED Status: Acute Current Visit: Yes Qualifiers: Constipation type: other constipation type Qualified Code(s): K59.09 - Other constipation (2) CHF (congestive heart failure) SNOMED Code(s): 33082426 Code(s): I50.9 - HEART FAILURE, UNSPECIFIED Status: Acute Priority: High Current Visit: Yes Qualifiers: Congestive heart failure type: systolic Congestive heart failure chronicity : acute on chronic Qualified Code(s): I50.23 - Acute on chronic systolic ( congestive) heart failure (3) Anemia SNOMED Code(s): 378568105 Code(s): D64.9 - ANEMIA, UNSPECIFIED Status: Chronic Priority: Medium Current Visit: Yes Qualifiers: Other causes of anemia: chronic disease, other (4) COPD (chronic obstructive pulmonary disease) SNOMED Code(s): 25345298 Code(s): J44.9 - CHRONIC OBSTRUCTIVE PULMONARY DISEASE, UNSPECIFIED Status : Chronic Priority: High Current Visit: Yes Qualifiers: COPD type: emphysema Emphysema type: unspecified Qualified Code(s): J43.9 - Emphysema, unspecified (5) Dyspnea on exertion SNOMED Code(s): 29920754 Code(s): R06.09 - OTHER FORMS OF DYSPNEA Status: Chronic Priority: High Current Visit: Yes (6) Hx of aortic valve replacement SNOMED Code(s): 0644272166513, 488200159, 5407539186844 Code(s): Z95.2 - PRESENCE OF PROSTHETIC HEART VALVE Status: Chronic Current Visit: Yes - Problem List Review Problem List Initiated/Reviewed/Updated: Yes - My Orders Last 24 Hours: My Active Orders 09/26/16 10:31 Chest 2V [CR] Routine 09/26/16 10:33 Communication Order [RC] PER UNIT ROUTINE 09/27/16 05:11 B-TYPE NATRIURETIC PEPTIDE,BNP [CHEM] AM BASIC METABOLIC PANEL,BMP [CHEM] AM MG [MAGNESIUM] [CHEM] AM - Plan Plan:: This 76 year old male admitted with acute exacerbation of CHF and dyspnea of exertion 1. CHF: Edema improving, likely euvolemic. Will monitor weights daily and strict I/O. Continue with compression stockings and urge elevation of legs. Most recent LV EF 37% in May 2016. Continue lisinopril, Imdur and metoprolol. 2. Hyperkalemia: resolved. 3. CAD: Continue Vytorin, Plavix and ASA. Continue Ranexa 4. COPD: Continue Nebulizers and Mucinex. Will add Acapella, saline nebulizers to help expectorate mucous. 5. Anemia: Hgb 8.4, continues to feel extreme fatigue. Will transfuse 1 unit and monitor. Lasix after unit. Reports Dr. Trejo is arranging follow up with endoscopy. VTE prophylaxis: refusing Lovenox, SCDs Dispo: 2-3 days. September 22, 2016: The patient is a 76-year-old gentleman who was admitted to hospitalization on September 19, 2016 secondary to severe shortness of breath and anasarca. The patient also had profound orthopnea and inability to ambulate without being short of breath. This is has been worse over the past couple of weeks. 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 The patient has a wet primer powder blender that he saw in fact on September 14, 2016. Was noted at that time the patient had a depressed ejection fraction of 37%. Today the patient says that his breathing is much improved and his leg swelling has improved significantly as well. Upon admission the patient's B-type natriuretic peptide is greater than 3000. The patient also has a history of COPD secondary to smoking, environmental exposures and work around acids and metals and he is being treated for this with steroids. Subjectively the patient says that his breathing is improved somewhat. The patient will be continued on his SVNs, saline nebulizers. The patient's anemia due to chronic disease will be monitored very closely and currently is at 9.5 g/dL. It's patient drops below 8 he will be considered for transfusion. The patient will continue with his diuresis and diet as tolerated. I've also encouraged patient to ambulate. See the patient in follow-up in the morning and he'll likely be appropriate for discharge in 1-2 days. September 23, 2016: The patient is a 76-year-old gentleman that was admitted secondary to CHF exacerbation, COPD with shortness of breath and anasarca. Patient has been diuresed and his breathing is improving today. Patient says that he has not had a sufficient bowel movement for the past 4-5 days and will like to have something to help this. The patient says that he feels like his pressure in his abdomen that is interfering with his ability to breathe. This is happened before when he was constipated. The patient is also been very concerned about his hemoglobin and hematocrit. The patient says that he does not feel better today but he does not feel worse. He also has been watching his blood sugars very carefully and is concerned that they have been as high as 160 mg/dL. The patient says that his swelling is gone down considerably and he is on oral Lasix currently. The patient's today has a hemoglobin of 9.6 g/dL and his hematocrit is 29.2%. The patient is asymptomatic. The patient also has been noted to be hyponatremic and this may be the result of aggressive diuresis. The patient's BUN/creatinine have been stable. These will continue to be monitored very closely. The patient also has been recommended to continue on his diabetic diet as tolerated. I suspect that the patient be ready for discharge in 1-2 days. He is also been encouraged to ambulate. September 24, 2016 CHF: improving HTN: blood pressure on the low side: hold home meds today. Monitor BP COPD: 85% in sao2 in room air. NC oxygen placed on 2 L . He may need home oxygen. Hyperkalemia: 5.2 monitor. Anemia: Hb 10.7 Dispo tomorrow. September 25, 2016: The patient is a 76-year-old gentleman who was admitted initially secondary to COPD, CABG with aortic valve replacement and had CHF with anasarca. The patient today still has continued shortness of breath and he is worried about being discharged if his blood pressure is too low. Interestingly, the patient has demanded to take his blood pressure medications even though his systolic blood pressure has been around 80 mmHg systolic. The patient at this time says that he does not feel well enough to go home and he has been talking about having an appointment in [place] for possible EGD and colonoscopy as he believes that there is something wrong internally and it will be done here as the patient is considered too high risk secondary to his comorbidities. The patient's son has also been worried about his father's hypertension. I have discussed with the patient the option of going to [place] for [facility] prior to going home is patient lives by himself and the patient says that this is "a machine" for him and adamantly refuses for now the patient's antihypertensive medications have been held secondary to his blood pressure being low and I have reduced the dose of Imdur that he takes for his coronary artery disease. Patient says that he has been up walking around and still has problems with shortness of breath and feels like there is something pushing on his stomach where his ventral hernia is and he has had some mild pain with this. The patient's blood pressure will be monitored closely and his antihypertensive medication should be adjusted. I I suspect that there is altered motive for the patient staying although the patient does live alone and I would like him to be safe before he is discharged. The patient' s hemoglobin has been stable and is currently at 10.0 g/dL. The should be monitored. Patient also has been hyponatremic and currently his sodium is 125 mmol per liter. Both of these are likely chronic in nature for this patient. The patient's blood pressure today is 82/60 mmHg and this was at noon today. His oxygen saturations have been trending down. I will order a chest x-ray in the morning to ensure that the patient is now developing a pneumonia or has any other acute cardiopulmonary disease. 09/26/2016 He requests follow up with GI in [place] for consideration of follow up endoscopy as he has a history of hiatal hernia. I will request follow up with GI in [place] to be arranged. CXR today. I spoke with Dr. Trejo and I advised that discharge tomorrow is likely. Nicholas Moreland MD
--- NOTE | 2016-09-26 15:30 | CR ---
EXAMINATION: Two-view chest (PA and Lateral views). HISTORY: Cough. FINDINGS: The trachea is midline. The heart is borderline in size. Median sternotomy wires are noted. There is a chronic interstitial prominence The cardiomediastinal silhouette is within normal limits. There i s mild bibasilar infiltrate, right greater than left. A trace pleural effusion is not excluded. No p neumothorax. Osseous structures appear osteopenic. Old rib fractures noted. IMPRESSION: 1. Bibasilar infiltrate, right greater than left, likely pneumonia.
[2016-09-26] MEDS ORDERED: Vancomycin 1.5 GM in Sodium Chloride 0.9% 500 ML IV SCH (17:00)
[2016-09-26] MEDS ORDERED: Piperacillin/Tazobactam 3.375 GM in Sodium Chloride 0.9% 50 ML IV SCH (17:00)
[2016-09-26] MEDS: Levofloxacin/Dextrose 5%-Water 750 MG in Premix Bag 1 BAG IV SCH (17:26)
[2016-09-26] MEDS: Piperacillin/Tazobactam 3.375 GM in Sodium Chloride 0.9% 50 ML IV SCH (21:19)
[2016-09-26] MEDS: Ezetimibe 10 MG Tab PO SCH (21:22)
[2016-09-26] MEDS: Simvastatin 20 MG Tab PO SCH (21:22)
[2016-09-27] MEDS: Albuterol/Ipratropium 3.0-0.5 MG/3 ML Neb Soln NEB SCH ×3 (02:03→20:44)
[2016-09-27] MEDS: Piperacillin/Tazobactam 3.375 GM in Sodium Chloride 0.9% 50 ML IV SCH ×4 (02:12→20:53)
[2016-09-27] MEDS ORDERED: Albuterol/Ipratropium 3.0-0.5 MG/3 ML Neb Soln NEB PRN (04:28)
[2016-09-27] MEDS: Sodium Chloride 0.9% Inhalation Soln 3 ML Neb INH SCH ×4 (05:10→23:23)
[2016-09-27 05:48] LABS: CHLORIDE,CL 91 mmol/L (98-110); SODIUM,NA 124 mmol/L (136-146)
--- NOTE | 2016-09-27 09:04 | PCM.PN ---
- General Info Date of Service: 09/27/16 Subjective Update: No bm x 3 days. tried magnesium citrate yesterday. duclcolox p.o given this morning. Functional Status: Reports: tolerating diet, ambulating, urinating - Review of Systems General: Reports: No Symptoms HEENT: Reports: no symptoms Pulmonary: Reports: sputum (yellow) Cardiovascular: Reports: No Symptoms Gastrointestinal: Reports: Constipation Genitourinary: Reports: no symptoms Musculoskeletal: Reports: no symptoms Skin: Reports: no symptoms Neurological: Reports: No Symptoms Psychiatric: Reports: no symptoms - Patient Data Vitals - most recent: Last Vital Signs Temp 97.5 F 09/27/16 08:00 Pulse 83 09/27/16 08:00 Resp 20 09/27/16 08:00 BP 89/60 L 09/27/16 08:00 Pulse Ox 90 L 09/27/16 08:00 Weight - most recent: 66.5 kg I&O - last 24 hours: Intake & Output 09/26/16 09/27/16 09/27/16 22:59 06:59 14:59 Intake Total 1370 660 Output Total 600 550 Balance 770 110 Lab Results last 24 hrs: Laboratory Results - last 24 hr 09/27/16 09/27/16 09/27/16 Range/Units 04:55 04:55 04:55 WBC 11.82 H (4.0-11.0) K/uL RBC 3.41 L (4.50-5.90) M/uL Hgb 10.2 L (13.0-17.0) g/dL Hct 30.4 L (38.0-50.0) % MCV 89.1 (80.0-98.0) fL MCH 29.9 (27.0-32.0) pg MCHC 33.6 (31.0-37.0) g/dL RDW Std Deviation 69.5 H (28.0-62.0) fl RDW Coeff of Trae 22 H (11.0-15.0) % Plt Count 248 (150-400) K/uL MPV 8.70 (7.40-12.00) fL Neut % (Auto) 84.9 H (48.0-80.0) % Lymph % (Auto) 6.3 L (16.0-40.0) % [place] % (Auto) 8.7 (0.0-15.0) % Eos % (Auto) 0.1 (0.0-7.0) % Baso % (Auto) 0.0 (0.0-1.5) % Neut # (Auto) 10.0 H (1.4-5.7) K/uL Lymph # (Auto) 0.7 (0.6-2.4) K/uL [place] # (Auto) 1.0 H (0.0-0.8) K/uL Eos # (Auto) 0.0 (0.0-0.7) K/uL Baso # (Auto) 0.0 (0.0-0.1) K/uL Nucleated RBC % 0.0 /100WBC Nucleated RBCs # 0 K/uL Sodium 124 L (136-146) mmol/L Potassium 5.2 H (3.5-5.1) mmol/L Chloride 91 L (98-110) mmol/L Carbon Dioxide 28 (21-31) mmol/L BUN 23 (6.0-23.0) mg/dL Creatinine 0.9 (0.6-1.5) mg/dL Est Cr Clr Drug Dosing 64.32 mL/min Estimated GFR (MDRD) > 60.0 ml/min Glucose 81 (60-110) mg/dL Calcium 8.1 L (8.8-10.8) mg/dL Magnesium 1.6 (1.5-2.3) mEq/L B-Natriuretic Peptide > 3306 H (<100) PG/ML Med Orders - Current: Current Medications Albuterol (Ventolin Hfa) 0 gm INH Q6H PRN PRN Reason: Shortness of Breath Albuterol/Ipratropium (Duoneb 3.0-0.5 Mg/3 Ml) 3 ml NEB Q4HRRT PRN PRN Reason: Wheezing Albuterol/Ipratropium (Duoneb 3.0-0.5 Mg/3 Ml) 3 ml NEB BIDRT [facility] Aspirin (Aspirin) 81 mg PO DAILY [facility] Last Admin: 09/26/16 08:07 Dose: 81 mg Clopidogrel Bisulfate (Plavix) 37.5 mg PO DAILY [facility] Last Admin: 09/26/16 08:25 Dose: 37.5 mg Docusate Sodium (Colace) 100 mg PO BID [facility] Last Admin: 09/26/16 21:21 Dose: 100 mg Ezetimibe (Zetia) 5 mg PO BEDTIME [facility] Last Admin: 09/26/16 21:22 Dose: 5 mg Furosemide (Lasix) 20 mg PO DAILY [facility] Last Admin: 09/26/16 08:25 Dose: 20 mg Guaifenesin (Mucinex) 1,200 mg PO DAILY [facility] Last Admin: 09/26/16 08:07 Dose: 1,200 mg Levofloxacin/Dextrose 750 mg/ (Premix) 150 mls @ 100 mls/hr IV Q24H [facility] Last Admin: 09/26/16 17:26 Dose: 100 mls/hr Vancomycin HCl 1 gm/ Sodium (Chloride) 250 mls @ 250 mls/hr IV Q12H [facility] Last Admin: 09/27/16 06:35 Dose: 250 mls/hr Piperacillin Sod/Tazobactam (Sod 3.375 gm/ Sodium Chloride) 50 mls @ 100 mls/ hr IV Q6H [facility] Last Admin: 09/27/16 02:12 Dose: 100 mls/hr Isosorbide Mononitrate (Imdur) 30 mg PO BID [facility] Last Admin: 09/26/16 21:21 Dose: 30 mg Magnesium Hydroxide (Milk Of Magnesia) 30 ml PO DAILY PRN PRN Reason: Constipation Last Admin: 09/23/16 09:14 Dose: 30 ml Metoprolol Succinate (Toprol Xl) 100 mg PO DAILY [facility] Last Admin: 09/26/16 08:11 Dose: 100 mg Nicotine (Habitrol) 7 mg TRDERM DAILY [facility] Last Admin: 09/26/16 08:08 Dose: 7 mg Prednisone (Prednisone) 40 mg PO WITHBREAKFAST [facility] Last Admin: 09/26/16 08:08 Dose: 40 mg Ranolazine (Ranexa) 500 mg PO Q12H [facility] Last Admin: 09/26/16 21:21 Dose: 500 mg Simvastatin (Zocor) 20 mg PO BEDTIME [facility] Last Admin: 09/26/16 21:22 Dose: 20 mg Sodium Chloride (Saline Flush) 10 ml FLUSH ASDIRECTED PRN PRN Reason: Keep Vein Open Sodium Chloride (Saline Flush) 2.5 ml FLUSH ASDIRECTED PRN PRN Reason: Keep Vein Open Sodium Chloride (Sodium Chloride 0.9%) 3 ml INH Q6H [facility] Last Admin: 09/27/16 05:10 Dose: Not Given Discontinued Medications Albuterol/Ipratropium (Duoneb 3.0-0.5 Mg/3 Ml) 3 ml NEB ONETIME ONE Stop: 09/19/16 19:38 Last Admin: 09/19/16 19:59 Dose: 3 ml Albuterol/Ipratropium (Duoneb 3.0-0.5 Mg/3 Ml) 3 ml NEB Q4HRRT PRN PRN Reason: Wheezing/SOB Albuterol/Ipratropium (Duoneb 3.0-0.5 Mg/3 Ml) 3 ml NEB Q6HRRT [facility] Last Admin: 09/20/16 10:19 Dose: 3 ml Albuterol/Ipratropium (Duoneb 3.0-0.5 Mg/3 Ml) 3 ml NEB Q4HRRT [facility] Last Admin: 09/27/16 02:03 Dose: Not Given Docusate Sodium (Colace) 100 mg PO BID PRN PRN Reason: Constipation Last Admin: 09/23/16 13:28 Dose: 100 mg Enoxaparin Sodium (Lovenox) 40 mg SUBCUT Q24H [facility] Last Admin: 09/20/16 16:03 Dose: 40 mg Furosemide (Lasix) 40 mg IVPUSH NOW ONE Stop: 09/19/16 20:20 Last Admin: 09/19/16 20:28 Dose: 40 mg Furosemide (Lasix) 40 mg IVPUSH NOW ONE Stop: 09/20/16 10:01 Last Admin: 09/20/16 10:22 Dose: 40 mg Furosemide (Lasix) 40 mg IVPUSH NOW ONE Stop: 09/20/16 17:16 Last Admin: 09/20/16 17:43 Dose: 40 mg Furosemide (Lasix) 20 mg IVPUSH ONETIME ONE Stop: 09/21/16 11:41 Last Admin: 09/21/16 17:08 Dose: 20 mg Furosemide (Lasix) 20 mg IVPUSH ONETIME ONE Stop: 09/21/16 17:06 Last Admin: 09/21/16 17:56 Dose: Not Given Sodium Chloride (Normal Saline) 1,000 mls @ 30 mls/hr IV STAT [facility] Last Admin: 09/19/16 19:58 Dose: 30 mls/hr Piperacillin Sod/Tazobactam (Sod 3.375 gm/ Sodium Chloride) 50 mls @ 100 mls/ hr IV Q6H [facility] Last Admin: 09/26/16 18:05 Dose: Not Given Vancomycin HCl 1 gm/ Sodium (Chloride) 250 mls @ 250 mls/hr IV Q12H [facility] Isosorbide Mononitrate (Imdur) 60 mg PO BID [facility] Last Admin: 09/25/16 09:08 Dose: 60 mg Isosorbide Mononitrate (Imdur) 30 mg PO DAILY [facility] Lisinopril (Prinivil) 10 mg PO DAILY [facility] Last Admin: 09/23/16 09:43 Dose: Not Given Magnesium Citrate (Citrate Of Magnesia) 296 ml PO ONETIME ONE Stop: 09/26/16 10:32 Last Admin: 09/26/16 11:14 Dose: 296 ml Methylprednisolone Sodium Succinate (Solu-Medrol) 125 mg IVPUSH ONETIME ONE Stop: 09/19/16 19:38 Last Admin: 09/19/16 19:58 Dose: 125 mg - Exam General: alert, oriented, cooperative HEENT: Pupils equal, EOMI Neck: supple, trachea midline Lungs: Normal respiratory effort, Decreased breath sounds Cardiovascular: Regular Rate, Regular Rhythm Abdomen: bowel sounds present, soft, no tenderness, no distension Back Exam: Normal Inspection Extremities: no edema - Problem List Review Problem List Initiated/Reviewed/Updated: Yes - My Orders Last 24 Hours: My Active Orders 09/26/16 17:00 Levofloxacin/Dextrose 5%-Water [Levaquin in D5W 750 MG/150 ML] 750 mg Premix Bag 1 bag IV Q24H 09/26/16 19:00 Vancomycin [Vancocin] 1 gm Sodium Chloride 0.9% [Normal Saline] 250 ml IV Q12H 09/26/16 20:00 Piperacillin/Tazobactam [Piperacil-Tazobact] 3.375 gm Sodium Chloride 0.9% [ Normal Saline] 50 ml IV Q6H 09/28/16 05:11 CBC WITH AUTO DIFF [HEME] AM - Plan Plan:: This 76 year old male admitted with acute exacerbation of CHF and dyspnea of exertion 1. CHF: Edema improving, likely euvolemic. Will monitor weights daily and strict I/O. Continue with compression stockings and urge elevation of legs. Most recent LV EF 37% in May 2016. Continue lisinopril, Imdur and metoprolol. 2. Hyperkalemia: resolved. 3. CAD: Continue Vytorin, Plavix and ASA. Continue Ranexa 4. COPD: Continue Nebulizers and Mucinex. Will add Acapella, saline nebulizers to help expectorate mucous. 5. Anemia: Hgb 8.4, continues to feel extreme fatigue. Will transfuse 1 unit and monitor. Lasix after unit. Reports Dr. Trejo is arranging follow up with endoscopy. VTE prophylaxis: refusing Lovenox, SCDs Dispo: 2-3 days. September 22, 2016: The patient is a 76-year-old gentleman who was admitted to hospitalization on September 19, 2016 secondary to severe shortness of breath and anasarca. The patient also had profound orthopnea and inability to ambulate without being short of breath. This is has been worse over the past couple of weeks. 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 The patient has a corporate health consultant that he saw [place] on September 14, 2016. Was noted at that time the patient had a depressed ejection fraction of 37%. Today the patient says that his breathing is much improved and his leg swelling has improved significantly as well. Upon admission the patient's B-type natriuretic peptide is greater than 3000. The patient also has a history of COPD secondary to smoking, environmental exposures and work around acids and metals and he is being treated for this with steroids. Subjectively the patient says that his breathing is improved somewhat. The patient will be continued on his SVNs, saline nebulizers. The patient's anemia due to chronic disease will be monitored very closely and currently is at 9.5 g/dL. It's patient drops below 8 he will be considered for transfusion. The patient will continue with his diuresis and diet as tolerated. I've also encouraged patient to ambulate. See the patient in follow-up in the morning and he'll likely be appropriate for discharge in 1-2 days. September 23, 2016: The patient is a 76-year-old gentleman that was admitted secondary to CHF exacerbation, COPD with shortness of breath and anasarca. Patient has been diuresed and his breathing is improving today. Patient says that he has not had a sufficient bowel movement for the past 4-5 days and will like to have something to help this. The patient says that he feels like his pressure in his abdomen that is interfering with his ability to breathe. This is happened before when he was constipated. The patient is also been very concerned about his hemoglobin and hematocrit. The patient says that he does not feel better today but he does not feel worse. He also has been watching his blood sugars very carefully and is concerned that they have been as high as 160 mg/dL. The patient says that his swelling is gone down considerably and he is on oral Lasix currently. The patient's today has a hemoglobin of 9.6 g/dL and his hematocrit is 29.2%. The patient is asymptomatic. The patient also has been noted to be hyponatremic and this may be the result of aggressive diuresis. The patient's BUN/creatinine have been stable. These will continue to be monitored very closely. The patient also has been recommended to continue on his diabetic diet as tolerated. I suspect that the patient be ready for discharge in 1-2 days. He is also been encouraged to ambulate. September 24, 2016 CHF: improving HTN: blood pressure on the low side: hold home meds today. Monitor BP COPD: 85% in sao2 in room air. NC oxygen placed on 2 L . He may need home oxygen. Hyperkalemia: 5.2 monitor. Anemia: Hb 10.7 Dispo tomorrow. September 25, 2016: The patient is a 76-year-old gentleman who was admitted initially secondary to COPD, CABG with aortic valve replacement and had CHF with anasarca. The patient today still has continued shortness of breath and he is worried about being discharged if his blood pressure is too low. Interestingly, the patient has demanded to take his blood pressure medications even though his systolic blood pressure has been around 80 mmHg systolic. The patient at this time says that he does not feel well enough to go home and he has been talking about having an appointment in [place] for possible EGD and colonoscopy as he believes that there is something wrong internally and it will be done here as the patient is considered too high risk secondary to his comorbidities. The patient's son has also been worried about his father's hypertension. I have discussed with the patient the option of going to [facility] prior to going home is patient lives by himself and the patient says that this is "a machine" for him and adamantly refuses for now the patient's antihypertensive medications have been held secondary to his blood pressure being low and I have reduced the dose of Imdur that he takes for his coronary artery disease. Patient says that he has been up walking around and still has problems with shortness of breath and feels like there is something pushing on his stomach where his ventral hernia is and he has had some mild pain with this. The patient's blood pressure will be monitored closely and his antihypertensive medication should be adjusted. I I suspect that there is altered motive for the patient staying although the patient does live alone and I would like him to be safe before he is discharged. The patient' s hemoglobin has been stable and is currently at 10.0 g/dL. The should be monitored. Patient also has been hyponatremic and currently his sodium is 125 mmol per liter. Both of these are likely chronic in nature for this patient. The patient's blood pressure today is 82/60 mmHg and this was at noon today. His oxygen saturations have been trending down. I will order a chest x-ray in the morning to ensure that the patient is now developing a pneumonia or has any other acute cardiopulmonary disease. 09/26/2016 He requests follow up with GI in [place] for consideration of follow up endoscopy as he has a history of hiatal hernia. I will request follow up with GI in [place] to be arranged. CXR today. I spoke with Dr. Trejo and I advised that discharge tomorrow is likely. Nicholas Moreland MD 09/27/2016 He agreed to stay in the hospital for treatment of pneumonia. conitnue I.V levaquin and zosyn. taper po prednisone to 20 mg constipation: check KUB xray. consider dulculox suppository
[2016-09-27] MEDS: Nicotine 7 MG/24 Hr Patch TRDERM SCH (09:31)
[2016-09-27] MEDS: Isosorbide Mononitrate 30 MG Tab.ER PO SCH ×2 (09:32→21:09)
[2016-09-27] MEDS: guaiFENesin 600 MG Tab.ER PO SCH ×4 (09:32→14:16)
[2016-09-27] MEDS: Clopidogrel 75 MG Tab PO SCH (09:36)
[2016-09-27] MEDS: Aspirin 81 MG Tab.Chew PO SCH (09:36)
[2016-09-27] MEDS: Metoprolol Succinate 100 MG Tab.ER PO SCH ×2 (09:36→09:53)
[2016-09-27] MEDS: Furosemide 20 MG Tab PO SCH (09:37)
[2016-09-27] MEDS: Docusate Sodium 100 MG Cap PO SCH ×2 (09:51→21:09)
[2016-09-27] MEDS: predniSONE 20 MG Tab PO SCH (10:33)
[2016-09-27] MEDS: Magnesium Hydroxide 400 MG/5 ML Susp 30 ML Cup PO PRN (11:21)
[2016-09-27] MEDS ORDERED: Furosemide 40 MG/4 ML VIAL IVPUSH ONE (13:26)
--- NOTE | 2016-09-27 13:55 | CR ---
EXAMINATION: Abdomen HISTORY: Constipation COMPARISON: CT dated 08/07/2013 TECHNIQUE: AP views of the abdomen FINDINGS: There is a moderate amount of stool and gastric the colon and rectum without dilated loops of small bowel. The kidneys are not well evaluated for calcifications due to overlying bowel gas an d stool. The osseous structures appear osteopenic. Moderate degenerative changes noted within the hi ps and lumbar spine. SI joints are symmetric. Vascular calcifications noted. IMPRESSION: Moderate amount stool and gas throughout the colon, this is consistent with constipation .
[2016-09-27] MEDS: Levofloxacin/Dextrose 5%-Water 750 MG in Premix Bag 1 BAG IV SCH (17:30)
[2016-09-27] MEDS: Ezetimibe 10 MG Tab PO SCH (21:10)
[2016-09-27] MEDS: Simvastatin 20 MG Tab PO SCH (21:11)
[2016-09-28] MEDS: Piperacillin/Tazobactam 3.375 GM in Sodium Chloride 0.9% 50 ML IV SCH ×4 (01:53→21:58)
[2016-09-28] MEDS: Sodium Chloride 0.9% Inhalation Soln 3 ML Neb INH SCH ×2 (06:08→13:18)
[2016-09-28 07:02] LABS: CHLORIDE,CL 94 mmol/L (98-110); SODIUM,NA 125 mmol/L (136-146)
[2016-09-28] MEDS: Nicotine 7 MG/24 Hr Patch TRDERM SCH (08:55)
[2016-09-28] MEDS: Clopidogrel 75 MG Tab PO SCH (08:57)
[2016-09-28] MEDS: Aspirin 81 MG Tab.Chew PO SCH (08:57)
[2016-09-28] MEDS: predniSONE 20 MG Tab PO SCH (08:58)
[2016-09-28] MEDS: Furosemide 20 MG Tab PO SCH (08:58)
[2016-09-28] MEDS: guaiFENesin 600 MG Tab.ER PO SCH ×2 (08:58→15:05)
[2016-09-28] MEDS: Docusate Sodium 100 MG Cap PO SCH ×2 (08:59→21:53)
[2016-09-28] MEDS ORDERED: Magnesium Sulfate/Water 2 GM in Premix Bag 1 BAG IV ONE (09:05)
[2016-09-28] MEDS: Isosorbide Mononitrate 30 MG Tab.ER PO SCH ×2 (09:07→21:51)
[2016-09-28] MEDS: Metoprolol Succinate 100 MG Tab.ER PO SCH (09:08)
--- NOTE | 2016-09-28 09:09 | PCM.PN ---
- General Info Date of Service: 09/28/16 Subjective Update: had large BM yesterday where he feels better. Functional Status: Reports: tolerating diet, ambulating, urinating - Review of Systems General: Reports: No Symptoms HEENT: Reports: no symptoms Pulmonary: Reports: no symptoms Cardiovascular: Reports: No Symptoms Gastrointestinal: Reports: No symptoms Musculoskeletal: Reports: no symptoms Skin: Reports: no symptoms Neurological: Reports: No Symptoms Psychiatric: Reports: no symptoms - Patient Data Vitals - most recent: Last Vital Signs Temp 96.9 F 09/28/16 08:00 Pulse 98 09/28/16 08:00 Resp 18 09/28/16 08:00 BP 103/70 09/28/16 08:00 Pulse Ox 92 L 09/28/16 08:00 Weight - most recent: 66.406 kg I&O - last 24 hours: Intake & Output 09/27/16 09/28/16 09/28/16 22:59 06:59 14:59 Intake Total 150 750 Output Total 1040 Balance 150 -290 Lab Results last 24 hrs: Laboratory Results - last 24 hr 09/28/16 09/28/16 09/28/16 Range/Units 06:32 06:32 06:32 WBC 7.51 (4.0-11.0) K/uL RBC 3.43 L (4.50-5.90) M/uL Hgb 10.2 L (13.0-17.0) g/dL Hct 30.6 L (38.0-50.0) % MCV 89.2 (80.0-98.0) fL MCH 29.7 (27.0-32.0) pg MCHC 33.3 (31.0-37.0) g/dL RDW Std Deviation 68.0 H (28.0-62.0) fl RDW Coeff of Trae 22 H (11.0-15.0) % Plt Count 231 (150-400) K/uL MPV 8.40 (7.40-12.00) fL Neut % (Auto) 77.7 (48.0-80.0) % Lymph % (Auto) 10.5 L (16.0-40.0) % Garrard % (Auto) 10.1 (0.0-15.0) % Eos % (Auto) 1.6 (0.0-7.0) % Baso % (Auto) 0.1 (0.0-1.5) % Neut # (Auto) 5.8 H (1.4-5.7) K/uL Lymph # (Auto) 0.8 (0.6-2.4) K/uL Garrard # (Auto) 0.8 (0.0-0.8) K/uL Eos # (Auto) 0.1 (0.0-0.7) K/uL Baso # (Auto) 0.0 (0.0-0.1) K/uL Nucleated RBC % 0.0 /100WBC Nucleated RBCs # 0 K/uL Sodium 125 L (136-146) mmol/L Potassium 4.4 (3.5-5.1) mmol/L Chloride 94 L (98-110) mmol/L Carbon Dioxide 27 (21-31) mmol/L BUN 21 (6.0-23.0) mg/dL Creatinine 1.0 (0.6-1.5) mg/dL Est Cr Clr Drug Dosing 57.89 mL/min Estimated GFR (MDRD) > 60.0 ml/min Glucose 80 (60-110) mg/dL Calcium 7.8 L (8.8-10.8) mg/dL Magnesium 1.4 L (1.5-2.3) mEq/L Vancomycin Trough 12.7 (5-15) ug/mL Med Orders - Current: Current Medications Albuterol (Ventolin Hfa) 0 gm INH Q6H PRN PRN Reason: Shortness of Breath Albuterol/Ipratropium (Duoneb 3.0-0.5 Mg/3 Ml) 3 ml NEB Q4HRRT PRN PRN Reason: Wheezing Albuterol/Ipratropium (Duoneb 3.0-0.5 Mg/3 Ml) 3 ml NEB BID@0900,2100 [facility] Aspirin (Aspirin) 81 mg PO DAILY [facility] Last Admin: 09/28/16 08:57 Dose: 81 mg Clopidogrel Bisulfate (Plavix) 37.5 mg PO DAILY [facility] Last Admin: 09/28/16 08:57 Dose: 37.5 mg Docusate Sodium (Colace) 100 mg PO BID [facility] Last Admin: 09/28/16 08:59 Dose: 100 mg Ezetimibe (Zetia) 5 mg PO BEDTIME [facility] Last Admin: 09/27/16 21:10 Dose: 5 mg Furosemide (Lasix) 20 mg PO DAILY [facility] Last Admin: 09/28/16 08:58 Dose: 20 mg Guaifenesin (Mucinex) 600 mg PO BID@0900,1500 [facility] Last Admin: 09/28/16 08:58 Dose: 600 mg Levofloxacin/Dextrose 750 mg/ (Premix) 150 mls @ 100 mls/hr IV Q24H [facility] Last Admin: 09/27/16 17:30 Dose: 100 mls/hr Vancomycin HCl 1 gm/ Sodium (Chloride) 250 mls @ 250 mls/hr IV Q12H [facility] Last Admin: 09/28/16 07:31 Dose: 250 mls/hr Piperacillin Sod/Tazobactam (Sod 3.375 gm/ Sodium Chloride) 50 mls @ 100 mls/ hr IV Q6H [facility] Last Admin: 09/28/16 08:52 Dose: 100 mls/hr Magnesium Sulfate 2 gm/ Premix 50 mls @ 50 mls/hr IV ONETIME ONE Stop: 09/28/16 10:04 Isosorbide Mononitrate (Imdur) 30 mg PO BID [facility] Last Admin: 09/27/16 21:09 Dose: 30 mg Magnesium Hydroxide (Milk Of Magnesia) 30 ml PO DAILY PRN PRN Reason: Constipation Last Admin: 09/27/16 11:21 Dose: 30 ml Metoprolol Succinate (Toprol Xl) 100 mg PO DAILY [facility] Last Admin: 09/27/16 09:53 Dose: Not Given Nicotine (Habitrol) 7 mg TRDERM DAILY [facility] Last Admin: 09/28/16 08:55 Dose: 7 mg Prednisone (Prednisone) 20 mg PO WITHBREAKFAST [facility] Last Admin: 09/28/16 08:58 Dose: 20 mg Ranolazine (Ranexa) 500 mg PO Q12H [facility] Last Admin: 09/28/16 08:58 Dose: 500 mg Simvastatin (Zocor) 20 mg PO BEDTIME [facility] Last Admin: 09/27/16 21:11 Dose: 20 mg Sodium Chloride (Saline Flush) 10 ml FLUSH ASDIRECTED PRN PRN Reason: Keep Vein Open Sodium Chloride (Saline Flush) 2.5 ml FLUSH ASDIRECTED PRN PRN Reason: Keep Vein Open Sodium Chloride (Sodium Chloride 0.9%) 3 ml INH Q6H [facility] Last Admin: 09/28/16 06:08 Dose: Not Given Discontinued Medications Albuterol/Ipratropium (Duoneb 3.0-0.5 Mg/3 Ml) 3 ml NEB ONETIME ONE Stop: 09/19/16 19:38 Last Admin: 09/19/16 19:59 Dose: 3 ml Albuterol/Ipratropium (Duoneb 3.0-0.5 Mg/3 Ml) 3 ml NEB Q4HRRT PRN PRN Reason: Wheezing/SOB Albuterol/Ipratropium (Duoneb 3.0-0.5 Mg/3 Ml) 3 ml NEB Q6HRRT [facility] Last Admin: 09/20/16 10:19 Dose: 3 ml Albuterol/Ipratropium (Duoneb 3.0-0.5 Mg/3 Ml) 3 ml NEB Q4HRRT [facility] Last Admin: 09/27/16 02:03 Dose: Not Given Albuterol/Ipratropium (Duoneb 3.0-0.5 Mg/3 Ml) 3 ml NEB BIDRT [facility] Last Admin: 09/27/16 20:44 Dose: 3 ml Docusate Sodium (Colace) 100 mg PO BID PRN PRN Reason: Constipation Last Admin: 09/23/16 13:28 Dose: 100 mg Enoxaparin Sodium (Lovenox) 40 mg SUBCUT Q24H [facility] Last Admin: 09/20/16 16:03 Dose: 40 mg Furosemide (Lasix) 40 mg IVPUSH NOW ONE Stop: 09/19/16 20:20 Last Admin: 09/19/16 20:28 Dose: 40 mg Furosemide (Lasix) 40 mg IVPUSH NOW ONE Stop: 09/20/16 10:01 Last Admin: 09/20/16 10:22 Dose: 40 mg Furosemide (Lasix) 40 mg IVPUSH NOW ONE Stop: 09/20/16 17:16 Last Admin: 09/20/16 17:43 Dose: 40 mg Furosemide (Lasix) 20 mg IVPUSH ONETIME ONE Stop: 09/21/16 11:41 Last Admin: 09/21/16 17:08 Dose: 20 mg Furosemide (Lasix) 20 mg IVPUSH ONETIME ONE Stop: 09/21/16 17:06 Last Admin: 09/21/16 17:56 Dose: Not Given Furosemide (Lasix) 20 mg PO DAILY [facility] Last Admin: 09/27/16 09:37 Dose: 20 mg Furosemide (Lasix) 20 mg IVPUSH NOW ONE Stop: 09/27/16 13:27 Last Admin: 09/27/16 14:28 Dose: Not Given Guaifenesin (Mucinex) 1,200 mg PO DAILY [facility] Last Admin: 09/27/16 10:32 Dose: Not Given Sodium Chloride (Normal Saline) 1,000 mls @ 30 mls/hr IV STAT [facility] Last Admin: 09/19/16 19:58 Dose: 30 mls/hr Piperacillin Sod/Tazobactam (Sod 3.375 gm/ Sodium Chloride) 50 mls @ 100 mls/ hr IV Q6H [facility] Last Admin: 09/26/16 18:05 Dose: Not Given Vancomycin HCl 1 gm/ Sodium (Chloride) 250 mls @ 250 mls/hr IV Q12H [facility] Isosorbide Mononitrate (Imdur) 60 mg PO BID [facility] Last Admin: 09/25/16 09:08 Dose: 60 mg Isosorbide Mononitrate (Imdur) 30 mg PO DAILY [facility] Lisinopril (Prinivil) 10 mg PO DAILY [facility] Last Admin: 09/23/16 09:43 Dose: Not Given Magnesium Citrate (Citrate Of Magnesia) 296 ml PO ONETIME ONE Stop: 09/26/16 10:32 Last Admin: 09/26/16 11:14 Dose: 296 ml Methylprednisolone Sodium Succinate (Solu-Medrol) 125 mg IVPUSH ONETIME ONE Stop: 09/19/16 19:38 Last Admin: 09/19/16 19:58 Dose: 125 mg Prednisone (Prednisone) 40 mg PO WITHBREAKFAST [facility] Last Admin: 09/27/16 10:33 Dose: Not Given - Exam General: alert, oriented, cooperative, no acute distress HEENT: Pupils equal, EOMI Neck: supple, trachea midline Lungs: Decreased breath sounds Cardiovascular: Regular Rate, Regular Rhythm Abdomen: bowel sounds present, soft, no tenderness Back Exam: Normal Inspection, Full Range of Motion Extremities: no edema Skin: warm, dry, intact Neurological: no new focal deficit Psy/Mental Status: alert, normal affect, normal mood - Problem List Review Problem List Initiated/Reviewed/Updated: Yes - My Orders Last 24 Hours: My Active Orders 09/27/16 13:19 Ambulate [RC] PER UNIT ROUTINE 09/27/16 13:20 Incentive Breathing [RT Incentive Spirometry] [RC] ASDIRECTED 09/27/16 13:28 Telemetry Monitoring [Cardiac Monitoring] [RC] . DIRECTED 09/28/16 09:00 Furosemide [Lasix] 20 mg PO DAILY 09/28/16 09:05 Magnesium Sulfate/Water [Magnesium Sulfate 2 GM in Water 50 ML] 2 gm Premix Bag 1 bag IV ONETIME 09/29/16 05:11 BMP [BASIC METABOLIC PANEL,BMP] [CHEM] AM CBC WITH AUTO DIFF [HEME] AM MAGNESIUM [CHEM] AM 09/30/16 05:11 BMP [BASIC METABOLIC PANEL,BMP] [CHEM] AM CBC WITH AUTO DIFF [HEME] AM MAGNESIUM [CHEM] AM - Plan Plan:: This 76 year old male admitted with acute exacerbation of CHF and dyspnea of exertion 1. CHF: Edema improving, likely euvolemic. Will monitor weights daily and strict I/O. Continue with compression stockings and urge elevation of legs. Most recent LV EF 37% in May 2016. Continue lisinopril, Imdur and metoprolol. 2. Hyperkalemia: resolved. 3. CAD: Continue Vytorin, Plavix and ASA. Continue Ranexa 4. COPD: Continue Nebulizers and Mucinex. Will add Acapella, saline nebulizers to help expectorate mucous. 5. Anemia: Hgb 8.4, continues to feel extreme fatigue. Will transfuse 1 unit and monitor. Lasix after unit. Reports Dr. Trejo is arranging follow up with endoscopy. VTE prophylaxis: refusing Lovenox, SCDs Dispo: 2-3 days. September 22, 2016: The patient is a 76-year-old gentleman who was admitted to hospitalization on September 19, 2016 secondary to severe shortness of breath and anasarca. The patient also had profound orthopnea and inability to ambulate without being short of breath. This is has been worse over the past couple of weeks. 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 The patient has a secretary that he saw in [place] on September 14, 2016. Was noted at that time the patient had a depressed ejection fraction of 37%. Today the patient says that his breathing is much improved and his leg swelling has improved significantly as well. Upon admission the patient's B-type natriuretic peptide is greater than 3000. The patient also has a history of COPD secondary to smoking, environmental exposures and work around acids and metals and he is being treated for this with steroids. Subjectively the patient says that his breathing is improved somewhat. The patient will be continued on his SVNs, saline nebulizers. The patient's anemia due to chronic disease will be monitored very closely and currently is at 9.5 g/dL. It's patient drops below 8 he will be considered for transfusion. The patient will continue with his diuresis and diet as tolerated. I've also encouraged patient to ambulate. See the patient in follow-up in the morning and he'll likely be appropriate for discharge in 1-2 days. September 23, 2016: The patient is a 76-year-old gentleman that was admitted secondary to CHF exacerbation, COPD with shortness of breath and anasarca. Patient has been diuresed and his breathing is improving today. Patient says that he has not had a sufficient bowel movement for the past 4-5 days and will like to have something to help this. The patient says that he feels like his pressure in his abdomen that is interfering with his ability to breathe. This is happened before when he was constipated. The patient is also been very concerned about his hemoglobin and hematocrit. The patient says that he does not feel better today but he does not feel worse. He also has been watching his blood sugars very carefully and is concerned that they have been as high as 160 mg/dL. The patient says that his swelling is gone down considerably and he is on oral Lasix currently. The patient's today has a hemoglobin of 9.6 g/dL and his hematocrit is 29.2%. The patient is asymptomatic. The patient also has been noted to be hyponatremic and this may be the result of aggressive diuresis. The patient's BUN/creatinine have been stable. These will continue to be monitored very closely. The patient also has been recommended to continue on his diabetic diet as tolerated. I suspect that the patient be ready for discharge in 1-2 days. He is also been encouraged to ambulate. September 24, 2016 CHF: improving HTN: blood pressure on the low side: hold home meds today. Monitor BP COPD: 85% in sao2 in room air. NC oxygen placed on 2 L . He may need home oxygen. Hyperkalemia: 5.2 monitor. Anemia: Hb 10.7 Dispo tomorrow. September 25, 2016: The patient is a 76-year-old gentleman who was admitted initially secondary to COPD, CABG with aortic valve replacement and had CHF with anasarca. The patient today still has continued shortness of breath and he is worried about being discharged if his blood pressure is too low. Interestingly, the patient has demanded to take his blood pressure medications even though his systolic blood pressure has been around 80 mmHg systolic. The patient at this time says that he does not feel well enough to go home and he has been talking about having an appointment in [place] for possible EGD and colonoscopy as he believes that there is something wrong internally and it will be done here as the patient is considered too high risk secondary to his comorbidities. The patient's son has also been worried about his father's hypertension. I have discussed with the patient the option of going to [place] for [facility] prior to going home is patient lives by himself and the patient says that this is "a machine" for him and adamantly refuses for now the patient's antihypertensive medications have been held secondary to his blood pressure being low and I have reduced the dose of Imdur that he takes for his coronary artery disease. Patient says that he has been up walking around and still has problems with shortness of breath and feels like there is something pushing on his stomach where his ventral hernia is and he has had some mild pain with this. The patient's blood pressure will be monitored closely and his antihypertensive medication should be adjusted. I I suspect that there is altered motive for the patient staying although the patient does live alone and I would like him to be safe before he is discharged. The patient' s hemoglobin has been stable and is currently at 10.0 g/dL. The should be monitored. Patient also has been hyponatremic and currently his sodium is 125 mmol per liter. Both of these are likely chronic in nature for this patient. The patient's blood pressure today is 82/60 mmHg and this was at noon today. His oxygen saturations have been trending down. I will order a chest x-ray in the morning to ensure that the patient is now developing a pneumonia or has any other acute cardiopulmonary disease. 09/26/2016 He requests follow up with GI in [place] for consideration of follow up endoscopy as he has a history of hiatal hernia. I will request follow up with GI in [place] to be arranged. CXR today. I spoke with Dr. Trejo and I advised that discharge tomorrow is likely. Nicholas Moreland MD 09/27/2016 He agreed to stay in the hospital for treatment of pneumonia. conitnue I.V levaquin and zosyn. taper po prednisone to 20 mg constipation: check KUB xray. consider dulculox suppository 09/28/16 Pneumonia; improving continue IV levaquin and IV zosyn constipation: resolved
[2016-09-28] MEDS: Albuterol/Ipratropium 3.0-0.5 MG/3 ML Neb Soln NEB SCH ×3 (09:34→20:13)
[2016-09-28] MEDS: Levofloxacin/Dextrose 5%-Water 750 MG in Premix Bag 1 BAG IV SCH (17:00)
[2016-09-28] MEDS: Ezetimibe 10 MG Tab PO SCH (21:51)
[2016-09-28] MEDS: Simvastatin 20 MG Tab PO SCH (21:54)
[2016-09-29] MEDS: Piperacillin/Tazobactam 3.375 GM in Sodium Chloride 0.9% 50 ML IV SCH ×4 (03:30→19:28)
[2016-09-29 06:34] LABS: CHLORIDE,CL 94 mmol/L (98-110); SODIUM,NA 125 mmol/L (136-146)
[2016-09-29] MEDS: Docusate Sodium 100 MG Cap PO SCH ×2 (08:32→21:03)
[2016-09-29] MEDS: Nicotine 7 MG/24 Hr Patch TRDERM SCH (08:32)
[2016-09-29] MEDS: Aspirin 81 MG Tab.Chew PO SCH (08:32)
[2016-09-29] MEDS: predniSONE 20 MG Tab PO SCH (08:32)
[2016-09-29] MEDS: Clopidogrel 75 MG Tab PO SCH (08:33)
[2016-09-29] MEDS: Metoprolol Succinate 100 MG Tab.ER PO SCH (08:33)
[2016-09-29] MEDS: guaiFENesin 600 MG Tab.ER PO SCH ×2 (08:34→14:24)
[2016-09-29] MEDS: Furosemide 20 MG Tab PO SCH (08:34)
[2016-09-29] MEDS: Isosorbide Mononitrate 30 MG Tab.ER PO SCH ×2 (08:34→21:02)
[2016-09-29] MEDS: Albuterol/Ipratropium 3.0-0.5 MG/3 ML Neb Soln NEB SCH ×2 (09:15→20:27)
--- NOTE | 2016-09-29 10:00 | PCM.PN ---
- General Info Date of Service: 09/29/16 Functional Status: Reports: tolerating diet, ambulating, urinating - Review of Systems General: Reports: No Symptoms HEENT: Reports: no symptoms Pulmonary: Reports: sputum (yellow). Denies: pleuritic chest pain, cough Cardiovascular: Reports: No Symptoms Gastrointestinal: Reports: No symptoms Genitourinary: Reports: no symptoms Musculoskeletal: Reports: no symptoms Skin: Reports: no symptoms Neurological: Reports: No Symptoms Psychiatric: Reports: no symptoms - Patient Data Vitals - most recent: Last Vital Signs Temp 97.8 F 09/29/16 07:00 Pulse 96 09/29/16 08:33 Resp 17 09/29/16 07:00 BP 103/64 09/29/16 08:34 Pulse Ox 96 09/29/16 07:00 Weight - most recent: 67.993 kg I&O - last 24 hours: Intake & Output 09/28/16 09/29/16 09/29/16 22:59 06:59 14:59 Intake Total 1026 580 Output Total 850 850 Balance 176 -270 Lab Results last 24 hrs: Laboratory Results - last 24 hr 09/29/16 09/29/16 Range/Units 05:29 05:29 WBC 6.84 (4.0-11.0) K/uL RBC 3.41 L (4.50-5.90) M/uL Hgb 10.1 L (13.0-17.0) g/dL Hct 30.2 L (38.0-50.0) % MCV 88.6 (80.0-98.0) fL MCH 29.6 (27.0-32.0) pg MCHC 33.4 (31.0-37.0) g/dL RDW Std Deviation 66.9 H (28.0-62.0) fl RDW Coeff of Trae 21 H (11.0-15.0) % Plt Count 257 (150-400) K/uL MPV 8.60 (7.40-12.00) fL Neut % (Auto) 76.1 (48.0-80.0) % Lymph % (Auto) 12.1 L (16.0-40.0) % [place] % (Auto) 11.1 (0.0-15.0) % Eos % (Auto) 0.7 (0.0-7.0) % Baso % (Auto) 0.0 (0.0-1.5) % Neut # (Auto) 5.2 (1.4-5.7) K/uL Lymph # (Auto) 0.8 (0.6-2.4) K/uL [place] # (Auto) 0.8 (0.0-0.8) K/uL Eos # (Auto) 0.1 (0.0-0.7) K/uL Baso # (Auto) 0.0 (0.0-0.1) K/uL Nucleated RBC % 0.0 /100WBC Nucleated RBCs # 0 K/uL Sodium 125 L (136-146) mmol/L Potassium 4.3 (3.5-5.1) mmol/L Chloride 94 L (98-110) mmol/L Carbon Dioxide 24 (21-31) mmol/L BUN 16 (6.0-23.0) mg/dL Creatinine 0.9 (0.6-1.5) mg/dL Est Cr Clr Drug Dosing 64.32 mL/min Estimated GFR (MDRD) > 60.0 ml/min Glucose 139 H (60-110) mg/dL Calcium 8.0 L (8.8-10.8) mg/dL Magnesium 1.5 (1.5-2.3) mEq/L Med Orders - Current: Current Medications Albuterol (Ventolin Hfa) 0 gm INH Q6H PRN PRN Reason: Shortness of Breath Albuterol/Ipratropium (Duoneb 3.0-0.5 Mg/3 Ml) 3 ml NEB Q4HRRT PRN PRN Reason: Wheezing Albuterol/Ipratropium (Duoneb 3.0-0.5 Mg/3 Ml) 3 ml NEB BID@0900,2100 [facility] Last Admin: 09/29/16 09:15 Dose: 3 ml Aspirin (Aspirin) 81 mg PO DAILY [facility] Last Admin: 09/29/16 08:32 Dose: 81 mg Clopidogrel Bisulfate (Plavix) 37.5 mg PO DAILY [facility] Last Admin: 09/29/16 08:33 Dose: 37.5 mg Docusate Sodium (Colace) 100 mg PO BID [facility] Last Admin: 09/29/16 08:32 Dose: 100 mg Ezetimibe (Zetia) 5 mg PO BEDTIME [facility] Last Admin: 09/28/16 21:51 Dose: 5 mg Furosemide (Lasix) 20 mg PO DAILY [facility] Last Admin: 09/29/16 08:34 Dose: 20 mg Guaifenesin (Mucinex) 600 mg PO BID@0900,1500 [facility] Last Admin: 09/29/16 08:34 Dose: 600 mg Levofloxacin/Dextrose 750 mg/ (Premix) 150 mls @ 100 mls/hr IV Q24H [facility] Last Admin: 09/28/16 17:00 Dose: 100 mls/hr Vancomycin HCl 1 gm/ Sodium (Chloride) 250 mls @ 250 mls/hr IV Q12H [facility] Last Admin: 09/29/16 06:19 Dose: 250 mls/hr Piperacillin Sod/Tazobactam (Sod 3.375 gm/ Sodium Chloride) 50 mls @ 100 mls/ hr IV Q6H [facility] Last Admin: 09/29/16 08:28 Dose: 100 mls/hr Isosorbide Mononitrate (Imdur) 30 mg PO BID [facility] Last Admin: 09/29/16 08:34 Dose: 30 mg Magnesium Hydroxide (Milk Of Magnesia) 30 ml PO DAILY PRN PRN Reason: Constipation Last Admin: 09/27/16 11:21 Dose: 30 ml Metoprolol Succinate (Toprol Xl) 100 mg PO DAILY [facility] Last Admin: 09/29/16 08:33 Dose: 100 mg Nicotine (Habitrol) 7 mg TRDERM DAILY [facility] Last Admin: 09/29/16 08:32 Dose: 7 mg Prednisone (Prednisone) 20 mg PO WITHBREAKFAST [facility] Last Admin: 09/29/16 08:32 Dose: 20 mg Ranolazine (Ranexa) 500 mg PO Q12H [facility] Last Admin: 09/29/16 08:33 Dose: 500 mg Simvastatin (Zocor) 20 mg PO BEDTIME [facility] Last Admin: 09/28/16 21:54 Dose: 20 mg Sodium Chloride (Saline Flush) 10 ml FLUSH ASDIRECTED PRN PRN Reason: Keep Vein Open Sodium Chloride (Saline Flush) 2.5 ml FLUSH ASDIRECTED PRN PRN Reason: Keep Vein Open Discontinued Medications Albuterol/Ipratropium (Duoneb 3.0-0.5 Mg/3 Ml) 3 ml NEB ONETIME ONE Stop: 09/19/16 19:38 Last Admin: 09/19/16 19:59 Dose: 3 ml Albuterol/Ipratropium (Duoneb 3.0-0.5 Mg/3 Ml) 3 ml NEB Q4HRRT PRN PRN Reason: Wheezing/SOB Albuterol/Ipratropium (Duoneb 3.0-0.5 Mg/3 Ml) 3 ml NEB Q6HRRT [facility] Last Admin: 09/20/16 10:19 Dose: 3 ml Albuterol/Ipratropium (Duoneb 3.0-0.5 Mg/3 Ml) 3 ml NEB Q4HRRT [facility] Last Admin: 09/27/16 02:03 Dose: Not Given Albuterol/Ipratropium (Duoneb 3.0-0.5 Mg/3 Ml) 3 ml NEB BIDRT [facility] Last Admin: 09/28/16 09:37 Dose: Not Given Docusate Sodium (Colace) 100 mg PO BID PRN PRN Reason: Constipation Last Admin: 09/23/16 13:28 Dose: 100 mg Enoxaparin Sodium (Lovenox) 40 mg SUBCUT Q24H [facility] Last Admin: 09/20/16 16:03 Dose: 40 mg Furosemide (Lasix) 40 mg IVPUSH NOW ONE Stop: 09/19/16 20:20 Last Admin: 09/19/16 20:28 Dose: 40 mg Furosemide (Lasix) 40 mg IVPUSH NOW ONE Stop: 09/20/16 10:01 Last Admin: 09/20/16 10:22 Dose: 40 mg Furosemide (Lasix) 40 mg IVPUSH NOW ONE Stop: 09/20/16 17:16 Last Admin: 09/20/16 17:43 Dose: 40 mg Furosemide (Lasix) 20 mg IVPUSH ONETIME ONE Stop: 09/21/16 11:41 Last Admin: 09/21/16 17:08 Dose: 20 mg Furosemide (Lasix) 20 mg IVPUSH ONETIME ONE Stop: 09/21/16 17:06 Last Admin: 09/21/16 17:56 Dose: Not Given Furosemide (Lasix) 20 mg PO DAILY [facility] Last Admin: 09/27/16 09:37 Dose: 20 mg Furosemide (Lasix) 20 mg IVPUSH NOW ONE Stop: 09/27/16 13:27 Last Admin: 09/27/16 14:28 Dose: Not Given Guaifenesin (Mucinex) 1,200 mg PO DAILY [facility] Last Admin: 09/27/16 10:32 Dose: Not Given Sodium Chloride (Normal Saline) 1,000 mls @ 30 mls/hr IV STAT [facility] Last Admin: 09/19/16 19:58 Dose: 30 mls/hr Piperacillin Sod/Tazobactam (Sod 3.375 gm/ Sodium Chloride) 50 mls @ 100 mls/ hr IV Q6H [facility] Last Admin: 09/26/16 18:05 Dose: Not Given Vancomycin HCl 1 gm/ Sodium (Chloride) 250 mls @ 250 mls/hr IV Q12H [facility] Magnesium Sulfate 2 gm/ Premix 50 mls @ 50 mls/hr IV ONETIME ONE Stop: 09/28/16 10:04 Last Admin: 09/28/16 09:29 Dose: 50 mls/hr Isosorbide Mononitrate (Imdur) 60 mg PO BID [facility] Last Admin: 09/25/16 09:08 Dose: 60 mg Isosorbide Mononitrate (Imdur) 30 mg PO DAILY [facility] Lisinopril (Prinivil) 10 mg PO DAILY [facility] Last Admin: 09/23/16 09:43 Dose: Not Given Magnesium Citrate (Citrate Of Magnesia) 296 ml PO ONETIME ONE Stop: 09/26/16 10:32 Last Admin: 09/26/16 11:14 Dose: 296 ml Methylprednisolone Sodium Succinate (Solu-Medrol) 125 mg IVPUSH ONETIME ONE Stop: 09/19/16 19:38 Last Admin: 09/19/16 19:58 Dose: 125 mg Prednisone (Prednisone) 40 mg PO WITHBREAKFAST [facility] Last Admin: 09/27/16 10:33 Dose: Not Given Sodium Chloride (Sodium Chloride 0.9%) 3 ml INH Q6H [facility] Last Admin: 09/28/16 13:18 Dose: Not Given - Exam General: alert, oriented, cooperative HEENT: Pupils equal, EOMI Neck: supple, trachea midline Lungs: Decreased breath sounds. No: Wheezing Cardiovascular: Regular Rate, Regular Rhythm Abdomen: bowel sounds present, soft Back Exam: Normal Inspection, Full Range of Motion Extremities: edema (bilateal +2 pitting edema of the lower ext) Skin: warm, dry, intact - Problem List Review Problem List Initiated/Reviewed/Updated: Yes - My Orders Last 24 Hours: My Active Orders 09/28/16 09:00 Furosemide [Lasix] 20 mg PO DAILY 09/30/16 05:11 BMP [BASIC METABOLIC PANEL,BMP] [CHEM] AM CBC WITH AUTO DIFF [HEME] AM MAGNESIUM [CHEM] AM - Plan Plan:: This 76 year old male admitted with acute exacerbation of CHF and dyspnea of exertion 1. CHF: Edema improving, likely euvolemic. Will monitor weights daily and strict I/O. Continue with compression stockings and urge elevation of legs. Most recent LV EF 37% in May 2016. Continue lisinopril, Imdur and metoprolol. 2. Hyperkalemia: resolved. 3. CAD: Continue Vytorin, Plavix and ASA. Continue Ranexa 4. COPD: Continue Nebulizers and Mucinex. Will add Acapella, saline nebulizers to help expectorate mucous. 5. Anemia: Hgb 8.4, continues to feel extreme fatigue. Will transfuse 1 unit and monitor. Lasix after unit. Reports Dr. Trejo is arranging follow up with endoscopy. VTE prophylaxis: refusing Lovenox, SCDs Dispo: 2-3 days. September 22, 2016: The patient is a 76-year-old gentleman who was admitted to hospitalization on September 19, 2016 secondary to severe shortness of breath and anasarca. The patient also had profound orthopnea and inability to ambulate without being short of breath. This is has been worse over the past couple of weeks. 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 The patient has a cytopathology technologist that he saw in [place] on September 14, 2016. Was noted at that time the patient had a depressed ejection fraction of 37%. Today the patient says that his breathing is much improved and his leg swelling has improved significantly as well. Upon admission the patient's B-type natriuretic peptide is greater than 3000. The patient also has a history of COPD secondary to smoking, environmental exposures and work around acids and metals and he is being treated for this with steroids. Subjectively the patient says that his breathing is improved somewhat. The patient will be continued on his SVNs, saline nebulizers. The patient's anemia due to chronic disease will be monitored very closely and currently is at 9.5 g/dL. It's patient drops below 8 he will be considered for transfusion. The patient will continue with his diuresis and diet as tolerated. I've also encouraged patient to ambulate. See the patient in follow-up in the morning and he'll likely be appropriate for discharge in 1-2 days. September 23, 2016: The patient is a 76-year-old gentleman that was admitted secondary to CHF exacerbation, COPD with shortness of breath and anasarca. Patient has been diuresed and his breathing is improving today. Patient says that he has not had a sufficient bowel movement for the past 4-5 days and will like to have something to help this. The patient says that he feels like his pressure in his abdomen that is interfering with his ability to breathe. This is happened before when he was constipated. The patient is also been very concerned about his hemoglobin and hematocrit. The patient says that he does not feel better today but he does not feel worse. He also has been watching his blood sugars very carefully and is concerned that they have been as high as 160 mg/dL. The patient says that his swelling is gone down considerably and he is on oral Lasix currently. The patient's today has a hemoglobin of 9.6 g/dL and his hematocrit is 29.2%. The patient is asymptomatic. The patient also has been noted to be hyponatremic and this may be the result of aggressive diuresis. The patient's BUN/creatinine have been stable. These will continue to be monitored very closely. The patient also has been recommended to continue on his diabetic diet as tolerated. I suspect that the patient be ready for discharge in 1-2 days. He is also been encouraged to ambulate. September 24, 2016 CHF: improving HTN: blood pressure on the low side: hold home meds today. Monitor BP COPD: 85% in sao2 in room air. NC oxygen placed on 2 L . He may need home oxygen. Hyperkalemia: 5.2 monitor. Anemia: Hb 10.7 Dispo tomorrow. September 25, 2016: The patient is a 76-year-old gentleman who was admitted initially secondary to COPD, CABG with aortic valve replacement and had CHF with anasarca. The patient today still has continued shortness of breath and he is worried about being discharged if his blood pressure is too low. Interestingly, the patient has demanded to take his blood pressure medications even though his systolic blood pressure has been around 80 mmHg systolic. The patient at this time says that he does not feel well enough to go home and he has been talking about having an appointment in [place] for possible EGD and colonoscopy as he believes that there is something wrong internally and it will be done here as the patient is considered too high risk secondary to his comorbidities. The patient's son has also been worried about his father's hypertension. I have discussed with the patient the option of going to [place] for strengthening prior to going home is patient lives by himself and the patient says that this is "a machine" for him and adamantly refuses for now the patient's antihypertensive medications have been held secondary to his blood pressure being low and I have reduced the dose of Imdur that he takes for his coronary artery disease. Patient says that he has been up walking around and still has problems with shortness of breath and feels like there is something pushing on his stomach where his ventral hernia is and he has had some mild pain with this. The patient's blood pressure will be monitored closely and his antihypertensive medication should be adjusted. I I suspect that there is altered motive for the patient staying although the patient does live alone and I would like him to be safe before he is discharged. The patient' s hemoglobin has been stable and is currently at 10.0 g/dL. The should be monitored. Patient also has been hyponatremic and currently his sodium is 125 mmol per liter. Both of these are likely chronic in nature for this patient. The patient's blood pressure today is 82/60 mmHg and this was at noon today. His oxygen saturations have been trending down. I will order a chest x-ray in the morning to ensure that the patient is now developing a pneumonia or has any other acute cardiopulmonary disease. 09/26/2016 He requests follow up with GI in [place] for consideration of follow up endoscopy as he has a history of hiatal hernia. I will request follow up with GI in [place] to be arranged. CXR today. I spoke with Dr. Trejo and I advised that discharge tomorrow is likely. Nicholas Moreland MD 09/27/2016 He agreed to stay in the hospital for treatment of pneumonia. grayson I.V levaquin and zosyn. taper po prednisone to 20 mg constipation: check KUB xray. consider dulculox suppository 09/28/16 Pneumonia; improving continue IV levaquin, vanco and IV zosyn constipation: resolved 09/29/16 HCAP pneumonia improving. continue abx anticipate discharge 1-2 days
[2016-09-29] MEDS: Levofloxacin/Dextrose 5%-Water 750 MG in Premix Bag 1 BAG IV SCH (16:14)
[2016-09-29] MEDS ORDERED: Isosorbide Mononitrate 30 MG Tab.ER PO SCH ×2 (20:00→21:00)
[2016-09-29] MEDS: Ezetimibe 10 MG Tab PO SCH (21:03)
[2016-09-29] MEDS: Simvastatin 20 MG Tab PO SCH (21:03)
[2016-09-29] MEDS ORDERED: Furosemide 40 MG/4 ML VIAL IVPUSH ONE (21:58)
--- NOTE | 2016-09-29 22:08 | PCM.SN ---
- Free Text/Narrative Note: I stopped by to visit Steve this evening. He noted that he feels more LE edema and more JAMISON. He also notes that the higher dose of imdur seems to control feelings of chest heaviness that he had previously O: marked JVD lungs: no increased work of breathing noted; right basilar rales 2-3 LE edema talks easily in sentences I/O's show he is ahead on fluids A: CHF slight flare copd hx cad hyponatremia-stable P: lasix 40 mg IV now potassium 20 meq po q am increase daily po lasix to 40 mg po qam monitor I/O's liberalize Na intake; change to regular diet anticipate discharge home Saturday or Saturday. Nicholas Moreland MD
[2016-09-30] MEDS: Piperacillin/Tazobactam 3.375 GM in Sodium Chloride 0.9% 50 ML IV SCH ×4 (01:40→19:25)
[2016-09-30 07:07] LABS: CHLORIDE,CL 96 mmol/L (98-110); SODIUM,NA 129 mmol/L (136-146)
[2016-09-30] MEDS: predniSONE 20 MG Tab PO SCH (08:33)
[2016-09-30] MEDS: Clopidogrel 75 MG Tab PO SCH (08:34)
[2016-09-30] MEDS: Metoprolol Succinate 100 MG Tab.ER PO SCH (08:35)
[2016-09-30] MEDS: Aspirin 81 MG Tab.Chew PO SCH (08:35)
[2016-09-30] MEDS: Isosorbide Mononitrate 30 MG Tab.ER PO SCH ×2 (08:36→20:14)
[2016-09-30] MEDS: Potassium Chloride 20 MEQ Tab.ER PO SCH (08:36)
[2016-09-30] MEDS: guaiFENesin 600 MG Tab.ER PO SCH ×2 (08:36→14:01)
[2016-09-30] MEDS: Furosemide 20 MG Tab PO SCH (08:36)
[2016-09-30] MEDS: Docusate Sodium 100 MG Cap PO SCH ×2 (08:36→20:13)
[2016-09-30] MEDS: Nicotine 7 MG/24 Hr Patch TRDERM SCH (08:39)
[2016-09-30] MEDS: Albuterol/Ipratropium 3.0-0.5 MG/3 ML Neb Soln NEB SCH ×2 (08:45→20:31)
--- NOTE | 2016-09-30 13:04 | PCM.PN ---
- General Info Date of Service: 09/30/16 Subjective Update: no specific complaints - Patient Data Vitals - most recent: Last Vital Signs Temp 96.8 F 09/30/16 11:43 Pulse 84 09/30/16 11:43 Resp 18 09/30/16 11:43 BP 94/61 09/30/16 11:43 Pulse Ox 92 L 09/30/16 11:43 Weight - most recent: 66.723 kg I&O - last 24 hours: Intake & Output 09/29/16 09/30/16 09/30/16 22:59 06:59 14:59 Intake Total 1316 300 300 Output Total 1350 1375 Balance -34 -1075 300 Lab Results last 24 hrs: Laboratory Results - last 24 hr 09/30/16 09/30/16 09/30/16 Range/Units 06:29 06:29 06:29 WBC 7.60 (4.0-11.0) K/uL RBC 3.45 L (4.50-5.90) M/uL Hgb 10.2 L (13.0-17.0) g/dL Hct 30.7 L (38.0-50.0) % MCV 89.0 (80.0-98.0) fL MCH 29.6 (27.0-32.0) pg MCHC 33.2 (31.0-37.0) g/dL RDW Std Deviation 68.0 H (28.0-62.0) fl RDW Coeff of Trae 21 H (11.0-15.0) % Plt Count 239 (150-400) K/uL MPV 8.30 (7.40-12.00) fL Neut % (Auto) 74.8 (48.0-80.0) % Lymph % (Auto) 12.0 L (16.0-40.0) % [place] % (Auto) 12.4 (0.0-15.0) % Eos % (Auto) 0.7 (0.0-7.0) % Baso % (Auto) 0.1 (0.0-1.5) % Neut # (Auto) 5.7 (1.4-5.7) K/uL Lymph # (Auto) 0.9 (0.6-2.4) K/uL [place] # (Auto) 0.9 H (0.0-0.8) K/uL Eos # (Auto) 0.1 (0.0-0.7) K/uL Baso # (Auto) 0.0 (0.0-0.1) K/uL Nucleated RBC % 0.0 /100WBC Nucleated RBCs # 0 K/uL Sodium 129 L (136-146) mmol/L Potassium 4.5 (3.5-5.1) mmol/L Chloride 96 L (98-110) mmol/L Carbon Dioxide 28 (21-31) mmol/L BUN 16 (6.0-23.0) mg/dL Creatinine 1.0 (0.6-1.5) mg/dL Est Cr Clr Drug Dosing 57.89 mL/min Estimated GFR (MDRD) > 60.0 ml/min Glucose 82 (60-110) mg/dL Calcium 7.9 L (8.8-10.8) mg/dL Magnesium 1.4 L (1.5-2.3) mEq/L Vancomycin Trough 14.9 (5-15) ug/mL Med Orders - Current: Current Medications Albuterol (Ventolin Hfa) 0 gm INH Q6H PRN PRN Reason: Shortness of Breath Albuterol/Ipratropium (Duoneb 3.0-0.5 Mg/3 Ml) 3 ml NEB Q4HRRT PRN PRN Reason: Wheezing Albuterol/Ipratropium (Duoneb 3.0-0.5 Mg/3 Ml) 3 ml NEB BID@0900,2100 [facility] Last Admin: 09/30/16 08:45 Dose: 3 ml Aspirin (Aspirin) 81 mg PO DAILY [facility] Last Admin: 09/30/16 08:35 Dose: 81 mg Clopidogrel Bisulfate (Plavix) 37.5 mg PO DAILY [facility] Last Admin: 09/30/16 08:34 Dose: 37.5 mg Docusate Sodium (Colace) 100 mg PO BID [facility] Last Admin: 09/30/16 08:36 Dose: 100 mg Ezetimibe (Zetia) 5 mg PO BEDTIME [facility] Last Admin: 09/29/16 21:03 Dose: 5 mg Furosemide (Lasix) 40 mg PO DAILY [facility] Last Admin: 09/30/16 08:36 Dose: 40 mg Guaifenesin (Mucinex) 600 mg PO BID@0900,1500 [facility] Last Admin: 09/30/16 08:36 Dose: 600 mg Levofloxacin/Dextrose 750 mg/ (Premix) 150 mls @ 100 mls/hr IV Q24H [facility] Last Admin: 09/29/16 16:14 Dose: 100 mls/hr Vancomycin HCl 1 gm/ Sodium (Chloride) 250 mls @ 250 mls/hr IV Q12H [facility] Last Admin: 09/30/16 07:27 Dose: 250 mls/hr Piperacillin Sod/Tazobactam (Sod 3.375 gm/ Sodium Chloride) 50 mls @ 100 mls/ hr IV Q6H [facility] Last Admin: 09/30/16 09:27 Dose: 100 mls/hr Isosorbide Mononitrate (Imdur) 60 mg PO QAM [facility] Last Admin: 09/30/16 08:36 Dose: 60 mg Isosorbide Mononitrate (Imdur) 30 mg PO QPM@2100 [facility] Last Admin: 09/29/16 21:02 Dose: 30 mg Magnesium Hydroxide (Milk Of Magnesia) 30 ml PO DAILY PRN PRN Reason: Constipation Last Admin: 09/27/16 11:21 Dose: 30 ml Magnesium Oxide (Magnesium Oxide) 400 mg PO BID [facility] Metoprolol Succinate (Toprol Xl) 100 mg PO DAILY [facility] Last Admin: 09/30/16 08:35 Dose: 100 mg Nicotine (Habitrol) 7 mg TRDERM DAILY [facility] Last Admin: 09/30/16 08:39 Dose: 7 mg Potassium Chloride (Klor-Con M20) 20 meq PO DAILY [facility] Last Admin: 09/30/16 08:36 Dose: 20 meq Prednisone (Prednisone) 10 mg PO WITHBREAKFAST [facility] Last Admin: 09/30/16 08:33 Dose: 10 mg Ranolazine (Ranexa) 500 mg PO Q12H [facility] Last Admin: 09/30/16 08:34 Dose: 500 mg Simvastatin (Zocor) 20 mg PO BEDTIME [facility] Last Admin: 09/29/16 21:03 Dose: 20 mg Sodium Chloride (Saline Flush) 10 ml FLUSH ASDIRECTED PRN PRN Reason: Keep Vein Open Sodium Chloride (Saline Flush) 2.5 ml FLUSH ASDIRECTED PRN PRN Reason: Keep Vein Open Discontinued Medications Albuterol/Ipratropium (Duoneb 3.0-0.5 Mg/3 Ml) 3 ml NEB ONETIME ONE Stop: 09/19/16 19:38 Last Admin: 09/19/16 19:59 Dose: 3 ml Albuterol/Ipratropium (Duoneb 3.0-0.5 Mg/3 Ml) 3 ml NEB Q4HRRT PRN PRN Reason: Wheezing/SOB Albuterol/Ipratropium (Duoneb 3.0-0.5 Mg/3 Ml) 3 ml NEB Q6HRRT [facility] Last Admin: 09/20/16 10:19 Dose: 3 ml Albuterol/Ipratropium (Duoneb 3.0-0.5 Mg/3 Ml) 3 ml NEB Q4HRRT [facility] Last Admin: 09/27/16 02:03 Dose: Not Given Albuterol/Ipratropium (Duoneb 3.0-0.5 Mg/3 Ml) 3 ml NEB BIDRT [facility] Last Admin: 09/28/16 09:37 Dose: Not Given Docusate Sodium (Colace) 100 mg PO BID PRN PRN Reason: Constipation Last Admin: 09/23/16 13:28 Dose: 100 mg Enoxaparin Sodium (Lovenox) 40 mg SUBCUT Q24H [facility] Last Admin: 09/20/16 16:03 Dose: 40 mg Furosemide (Lasix) 40 mg IVPUSH NOW ONE Stop: 09/19/16 20:20 Last Admin: 09/19/16 20:28 Dose: 40 mg Furosemide (Lasix) 40 mg IVPUSH NOW ONE Stop: 09/20/16 10:01 Last Admin: 09/20/16 10:22 Dose: 40 mg Furosemide (Lasix) 40 mg IVPUSH NOW ONE Stop: 09/20/16 17:16 Last Admin: 09/20/16 17:43 Dose: 40 mg Furosemide (Lasix) 20 mg IVPUSH ONETIME ONE Stop: 09/21/16 11:41 Last Admin: 09/21/16 17:08 Dose: 20 mg Furosemide (Lasix) 20 mg IVPUSH ONETIME ONE Stop: 09/21/16 17:06 Last Admin: 09/21/16 17:56 Dose: Not Given Furosemide (Lasix) 20 mg PO DAILY [facility] Last Admin: 09/27/16 09:37 Dose: 20 mg Furosemide (Lasix) 20 mg IVPUSH NOW ONE Stop: 09/27/16 13:27 Last Admin: 09/27/16 14:28 Dose: Not Given Furosemide (Lasix) 20 mg PO DAILY [facility] Last Admin: 09/29/16 08:34 Dose: 20 mg Furosemide (Lasix) 40 mg IVPUSH NOW ONE Stop: 09/29/16 21:59 Last Admin: 09/29/16 22:31 Dose: 40 mg Guaifenesin (Mucinex) 1,200 mg PO DAILY [facility] Last Admin: 09/27/16 10:32 Dose: Not Given Sodium Chloride (Normal Saline) 1,000 mls @ 30 mls/hr IV STAT [facility] Last Admin: 09/19/16 19:58 Dose: 30 mls/hr Piperacillin Sod/Tazobactam (Sod 3.375 gm/ Sodium Chloride) 50 mls @ 100 mls/ hr IV Q6H [facility] Last Admin: 09/26/16 18:05 Dose: Not Given Vancomycin HCl 1 gm/ Sodium (Chloride) 250 mls @ 250 mls/hr IV Q12H [facility] Magnesium Sulfate 2 gm/ Premix 50 mls @ 50 mls/hr IV ONETIME ONE Stop: 09/28/16 10:04 Last Admin: 09/28/16 09:29 Dose: 50 mls/hr Isosorbide Mononitrate (Imdur) 60 mg PO BID [facility] Last Admin: 09/25/16 09:08 Dose: 60 mg Isosorbide Mononitrate (Imdur) 30 mg PO DAILY [facility] Isosorbide Mononitrate (Imdur) 30 mg PO BID [facility] Last Admin: 09/29/16 08:34 Dose: 30 mg Isosorbide Mononitrate (Imdur) 30 mg PO QPM [facility] Isosorbide Mononitrate (Imdur) 30 mg PO QPM [facility] Last Admin: 09/29/16 21:38 Dose: Not Given Isosorbide Mononitrate (Imdur) 30 mg PO QPM [facility] Lisinopril (Prinivil) 10 mg PO DAILY [facility] Last Admin: 09/23/16 09:43 Dose: Not Given Magnesium Citrate (Citrate Of Magnesia) 296 ml PO ONETIME ONE Stop: 09/26/16 10:32 Last Admin: 09/26/16 11:14 Dose: 296 ml Methylprednisolone Sodium Succinate (Solu-Medrol) 125 mg IVPUSH ONETIME ONE Stop: 09/19/16 19:38 Last Admin: 09/19/16 19:58 Dose: 125 mg Prednisone (Prednisone) 40 mg PO WITHBREAKFAST [facility] Last Admin: 09/27/16 10:33 Dose: Not Given Prednisone (Prednisone) 20 mg PO WITHBREAKFAST [facility] Last Admin: 09/29/16 08:32 Dose: 20 mg Sodium Chloride (Sodium Chloride 0.9%) 3 ml INH Q6H [facility] Last Admin: 09/28/16 13:18 Dose: Not Given - Exam General: alert, oriented Neck: supple, JVD Lungs: Other (bibasilar rales; ) Cardiovascular: Regular Rate, Regular Rhythm Extremities: other (2-3 plus edema LE's ) - Problem List & Annotations (1) Constipation SNOMED Code(s): 44674168 Code(s): K59.00 - CONSTIPATION, UNSPECIFIED Status: Acute Current Visit: Yes Qualifiers: Constipation type: other constipation type Qualified Code(s): K59.09 - Other constipation (2) CHF (congestive heart failure) SNOMED Code(s): 49721122 Code(s): I50.9 - HEART FAILURE, UNSPECIFIED Status: Acute Priority: High Current Visit: Yes Qualifiers: Congestive heart failure type: systolic Congestive heart failure chronicity : acute on chronic Qualified Code(s): I50.23 - Acute on chronic systolic ( congestive) heart failure (3) Anemia SNOMED Code(s): 023397135 Code(s): D64.9 - ANEMIA, UNSPECIFIED Status: Chronic Priority: Medium Current Visit: Yes Qualifiers: Other causes of anemia: chronic disease, other (4) COPD (chronic obstructive pulmonary disease) SNOMED Code(s): 24150023 Code(s): J44.9 - CHRONIC OBSTRUCTIVE PULMONARY DISEASE, UNSPECIFIED Status : Chronic Priority: High Current Visit: Yes Qualifiers: COPD type: emphysema Emphysema type: unspecified Qualified Code(s): J43.9 - Emphysema, unspecified (5) Dyspnea on exertion SNOMED Code(s): 74488563 Code(s): R06.09 - OTHER FORMS OF DYSPNEA Status: Chronic Priority: High Current Visit: Yes (6) Hx of aortic valve replacement SNOMED Code(s): 7798352687390, 222545140, 0768683175069 Code(s): Z95.2 - PRESENCE OF PROSTHETIC HEART VALVE Status: Chronic Current Visit: Yes - Problem List Review Problem List Initiated/Reviewed/Updated: Yes - My Orders Last 24 Hours: My Active Orders 09/29/16 21:00 Isosorbide Mononitrate [Imdur] 30 mg PO QPM@2100 09/29/16 22:00 Furosemide [Lasix] 40 mg PO DAILY predniSONE 10 mg PO WITHBREAKFAST 09/30/16 09:00 Isosorbide Mononitrate [Imdur] 60 mg PO QAM Potassium Chloride [Klor-Con M20] 20 meq PO DAILY 09/30/16 13:00 Magnesium Oxide 400 mg PO BID 10/01/16 05:11 BASIC METABOLIC PANEL,BMP [CHEM] AM CBC WITH AUTO DIFF [HEME] AM MAGNESIUM [CHEM] AM 10/02/16 05:11 BASIC METABOLIC PANEL,BMP [CHEM] AM CBC WITH AUTO DIFF [HEME] AM MAGNESIUM [CHEM] AM 10/03/16 05:11 BASIC METABOLIC PANEL,BMP [CHEM] AM CBC WITH AUTO DIFF [HEME] AM MAGNESIUM [CHEM] AM - Plan Plan:: This 76 year old male admitted with acute exacerbation of CHF and dyspnea of exertion 1. CHF: Edema improving, likely euvolemic. Will monitor weights daily and strict I/O. Continue with compression stockings and urge elevation of legs. Most recent LV EF 37% in May 2016. Continue lisinopril, Imdur and metoprolol. 2. Hyperkalemia: resolved. 3. CAD: Continue Vytorin, Plavix and ASA. Continue Ranexa 4. COPD: Continue Nebulizers and Mucinex. Will add Acapella, saline nebulizers to help expectorate mucous. 5. Anemia: Hgb 8.4, continues to feel extreme fatigue. Will transfuse 1 unit and monitor. Lasix after unit. Reports Dr. Trejo is arranging follow up with endoscopy. VTE prophylaxis: refusing Lovenox, SCDs Dispo: 2-3 days. September 22, 2016: The patient is a 76-year-old gentleman who was admitted to hospitalization on September 19, 2016 secondary to severe shortness of breath and anasarca. The patient also had profound orthopnea and inability to ambulate without being short of breath. This is has been worse over the past couple of weeks. 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 The patient has a healthcare economics consultant that he saw [place] on September 14, 2016. Was noted at that time the patient had a depressed ejection fraction of 37%. Today the patient says that his breathing is much improved and his leg swelling has improved significantly as well. Upon admission the patient's B-type natriuretic peptide is greater than 3000. The patient also has a history of COPD secondary to smoking, environmental exposures and work around acids and metals and he is being treated for this with steroids. Subjectively the patient says that his breathing is improved somewhat. The patient will be continued on his SVNs, saline nebulizers. The patient's anemia due to chronic disease will be monitored very closely and currently is at 9.5 g/dL. It's patient drops below 8 he will be considered for transfusion. The patient will continue with his diuresis and diet as tolerated. I've also encouraged patient to ambulate. See the patient in follow-up in the morning and he'll likely be appropriate for discharge in 1-2 days. September 23, 2016: The patient is a 76-year-old gentleman that was admitted secondary to CHF exacerbation, COPD with shortness of breath and anasarca. Patient has been diuresed and his breathing is improving today. Patient says that he has not had a sufficient bowel movement for the past 4-5 days and will like to have something to help this. The patient says that he feels like his pressure in his abdomen that is interfering with his ability to breathe. This is happened before when he was constipated. The patient is also been very concerned about his hemoglobin and hematocrit. The patient says that he does not feel better today but he does not feel worse. He also has been watching his blood sugars very carefully and is concerned that they have been as high as 160 mg/dL. The patient says that his swelling is gone down considerably and he is on oral Lasix currently. The patient's today has a hemoglobin of 9.6 g/dL and his hematocrit is 29.2%. The patient is asymptomatic. The patient also has been noted to be hyponatremic and this may be the result of aggressive diuresis. The patient's BUN/creatinine have been stable. These will continue to be monitored very closely. The patient also has been recommended to continue on his diabetic diet as tolerated. I suspect that the patient be ready for discharge in 1-2 days. He is also been encouraged to ambulate. September 24, 2016 CHF: improving HTN: blood pressure on the low side: hold home meds today. Monitor BP COPD: 85% in sao2 in room air. NC oxygen placed on 2 L . He may need home oxygen. Hyperkalemia: 5.2 monitor. Anemia: Hb 10.7 Dispo tomorrow. September 25, 2016: The patient is a 76-year-old gentleman who was admitted initially secondary to COPD, CABG with aortic valve replacement and had CHF with anasarca. The patient today still has continued shortness of breath and he is worried about being discharged if his blood pressure is too low. Interestingly, the patient has demanded to take his blood pressure medications even though his systolic blood pressure has been around 80 mmHg systolic. The patient at this time says that he does not feel well enough to go home and he has been talking about having an appointment in [place] for possible EGD and colonoscopy as he believes that there is something wrong internally and it will be done here as the patient is considered too high risk secondary to his comorbidities. The patient's son has also been worried about his father's hypertension. I have discussed with the patient the option of going to [place] for [facility] prior to going home is patient lives by himself and the patient says that this is "a machine" for him and adamantly refuses for now the patient's antihypertensive medications have been held secondary to his blood pressure being low and I have reduced the dose of Imdur that he takes for his coronary artery disease. Patient says that he has been up walking around and still has problems with shortness of breath and feels like there is something pushing on his stomach where his ventral hernia is and he has had some mild pain with this. The patient's blood pressure will be monitored closely and his antihypertensive medication should be adjusted. I I suspect that there is altered motive for the patient staying although the patient does live alone and I would like him to be safe before he is discharged. The patient' s hemoglobin has been stable and is currently at 10.0 g/dL. The should be monitored. Patient also has been hyponatremic and currently his sodium is 125 mmol per liter. Both of these are likely chronic in nature for this patient. The patient's blood pressure today is 82/60 mmHg and this was at noon today. His oxygen saturations have been trending down. I will order a chest x-ray in the morning to ensure that the patient is now developing a pneumonia or has any other acute cardiopulmonary disease. 09/26/2016 He requests follow up with GI in [place] for consideration of follow up endoscopy as he has a history of hiatal hernia. I will request follow up with GI in [place] to be arranged. CXR today. I spoke with Dr. Trejo and I advised that discharge tomorrow is likely. Nicholas Moreland MD 09/27/2016 He agreed to stay in the hospital for treatment of pneumonia. conitnue I.V levaquin and zosyn. taper po prednisone to 20 mg constipation: check KUB xray. consider dulculox suppository 09/28/16 Pneumonia; improving continue IV levaquin, vanco and IV zosyn constipation: resolved 09/29/16 HCAP pneumonia improving. continue abx anticipate discharge 1-2 days 09/30/2016: improving lasix dose increased to 40 mg q am watch K levels add oral magnesium for hypomagnesemia possible discharge in 24 to 48 hours Nicholas Moreland MD
[2016-09-30] MEDS: Magnesium Oxide 400 MG Tab PO SCH ×2 (13:14→20:14)
[2016-09-30] MEDS: Levofloxacin/Dextrose 5%-Water 750 MG in Premix Bag 1 BAG IV SCH (16:04)
[2016-09-30] MEDS ORDERED: Isosorbide Mononitrate 30 MG Tab.ER PO SCH (20:00)
[2016-09-30] MEDS: Ezetimibe 10 MG Tab PO SCH (20:14)
[2016-09-30] MEDS: Simvastatin 20 MG Tab PO SCH (20:14)
[2016-10-01] MEDS: Piperacillin/Tazobactam 3.375 GM in Sodium Chloride 0.9% 50 ML IV SCH ×3 (01:45→14:30)
[2016-10-01 06:39] LABS: CHLORIDE,CL 97 mmol/L (98-110); SODIUM,NA 128 mmol/L (136-146)
[2016-10-01] MEDS: predniSONE 20 MG Tab PO SCH (09:00)
[2016-10-01] MEDS: Nicotine 7 MG/24 Hr Patch TRDERM SCH (09:25)
[2016-10-01] MEDS: Isosorbide Mononitrate 30 MG Tab.ER PO SCH (09:27)
[2016-10-01] MEDS: Furosemide 20 MG Tab PO SCH (09:27)
[2016-10-01] MEDS: Clopidogrel 75 MG Tab PO SCH (09:28)
[2016-10-01] MEDS: Docusate Sodium 100 MG Cap PO SCH (09:28)
[2016-10-01] MEDS: guaiFENesin 600 MG Tab.ER PO SCH ×2 (09:28→14:39)
[2016-10-01] MEDS: Potassium Chloride 20 MEQ Tab.ER PO SCH (09:28)
[2016-10-01] MEDS: Aspirin 81 MG Tab.Chew PO SCH (09:29)
[2016-10-01] MEDS: Magnesium Oxide 400 MG Tab PO SCH (09:29)
[2016-10-01] MEDS: Metoprolol Succinate 100 MG Tab.ER PO SCH ×2 (09:31→09:36)
--- NOTE | 2016-10-01 09:45 | CR ---
EXAMINATION: Two-view chest (PA and Lateral views). HISTORY: Pneumonia. FINDINGS: The trachea is midline. The cardiomediastinal silhouette is stable. The heart is borderline in size. Grossly unchanged persistent basilar infiltrate. No pleural effusion or pneumothorax. Osseous structures appear unremarkable. IMPRESSION: Grossly unchanged basilar infiltrate.
[2016-10-01] MEDS: Albuterol/Ipratropium 3.0-0.5 MG/3 ML Neb Soln NEB SCH (09:54)
--- NOTE | 2016-10-01 12:07 | PCM.DCSUM1 ---
Discharge Summary - Hospital Course Brief History: he was admitted with a flare of congestive heart failure. - Discharge Data Discharge Date: 10/01/16 Discharge Disposition: Home, Self-Care 01 Condition: Good - Discharge Diagnosis/Problem(s) (1) Constipation SNOMED Code(s): 20015905 ICD Code: K59.00 - CONSTIPATION, UNSPECIFIED Status: Acute Current Visit : Yes Qualifiers: Constipation type: other constipation type Qualified Code(s): K59.09 - Other constipation (2) CHF (congestive heart failure) SNOMED Code(s): 41080759 ICD Code: I50.9 - HEART FAILURE, UNSPECIFIED Status: Acute Priority: High Current Visit: Yes Qualifiers: Congestive heart failure type: systolic Congestive heart failure chronicity : acute on chronic Qualified Code(s): I50.23 - Acute on chronic systolic ( congestive) heart failure (3) Anemia SNOMED Code(s): 743993391 ICD Code: D64.9 - ANEMIA, UNSPECIFIED Status: Chronic Priority: Medium Current Visit: Yes Qualifiers: Other causes of anemia: chronic disease, other (4) COPD (chronic obstructive pulmonary disease) SNOMED Code(s): 37507149 ICD Code: J44.9 - CHRONIC OBSTRUCTIVE PULMONARY DISEASE, UNSPECIFIED Status : Chronic Priority: High Current Visit: Yes Qualifiers: COPD type: emphysema Emphysema type: unspecified Qualified Code(s): J43.9 - Emphysema, unspecified (5) Dyspnea on exertion SNOMED Code(s): 55634278 ICD Code: R06.09 - OTHER FORMS OF DYSPNEA Status: Chronic Priority: High Current Visit: Yes (6) Hx of aortic valve replacement SNOMED Code(s): 3706140867901, 446059954, 0547181997218 ICD Code: Z95.2 - PRESENCE OF PROSTHETIC HEART VALVE Status: Chronic Current Visit: Yes - Patient Summary/Data Hospital Course: He was treated with lasix and close monitoring. his imdur was titrated. On September 26 2016 CXR was c/w bibasilar infiltrates. Therefore he was started on broad spectrum antibiotics for hospital acquired pneumonia. He improved. On the day of discharge, his follow up CXR shows persistent bibasilar infiltrates but he is improved clinically. He is walking well without assistance at discharge. He was given Mg supplementation due to hypomagnesemia. He has declined consideration of [place] home placement. I discussed his care with Dr Benjamin Trejo, his primary attending physician, before discharge. MD Perir - Discharge Plan Prescriptions/Med Rec: Amoxicillin/Clavulanate K [Augmentin 875 MG/125 MG] 1 tab PO Q12HR #10 tablet Furosemide [Lasix] 40 mg PO DAILY #30 tablet Magnesium Oxide 400 mg PO BID #60 tablet Potassium Chloride [Klor-Con M20] 20 meq PO DAILY #30 tab.er Home Medications: Home Meds Metoprolol Succinate [Toprol Xl] 100 mg PO DAILY 11/17/14 [History] Nitroglycerin 0.4 mg PO ASDIRECTED PRN 01/28/15 [History] Clopidogrel [Plavix] 37.5 mg PO DAILY 07/19/16 [History] Ezetimibe/Simvastatin [Vytorin 10-80 mg Tablet] 5 - 40 mg PO BEDTIME 07/19/16 [ History] guaiFENesin [Mucinex] 1,200 mg PO DAILY 07/19/16 [History] Aspirin 81 mg PO DAILY 07/22/16 [History] Albuterol [Ventolin HFA] 2 inh IH QID PRN 09/20/16 [History] Albuterol/Ipratropium [DuoNeb 3.0-0.5 MG/3 ML] 3 ml IH QID 09/20/16 [History] Isosorbide Mononitrate [Imdur] 60 mg PO BID 09/20/16 [History] Lisinopril 10 mg PO DAILY 09/20/16 [History] Ranolazine [Ranexa] 500 mg PO Q12H 09/20/16 [History] Amoxicillin/Clavulanate K [Augmentin 875 MG/125 MG] 1 tab PO Q12HR #10 tablet [Rx] Furosemide [Lasix] 40 mg PO DAILY #30 tablet 10/01/16 [Rx] Magnesium Oxide 400 mg PO BID #60 tablet 10/01/16 [Rx] Potassium Chloride [Klor-Con M20] 20 meq PO DAILY #30 tab.er 10/01/16 [Rx] Patient Handouts: Chronic Obstructive Pulmonary Disease Exacerbation, Easy-to- Read, Heart Failure, [id number] Referrals: [facility] [Outside] (Dr. Hawk Watt November 13, 2016 at 2:30pm ) Maxwell Trejo MD [Primary Care Provider] - 10/03/16 2:45 pm - Discharge Summary/Plan Comment DC Time >30 min.: Yes - Patient Data Vitals - Most Recent: Last Vital Signs Temp 97.6 F 10/01/16 03:59 Pulse 77 10/01/16 09:36 Resp 20 10/01/16 03:59 BP 116/76 10/01/16 09:36 Pulse Ox 92 L 10/01/16 03:59 Weight - Most Recent: 67.495 kg I&O - Last 24 hours: Intake & Output 09/30/16 10/01/16 10/01/16 22:59 06:59 14:59 Intake Total 1296 730 Output Total 1150 900 Balance 146 -170 Lab Results - Last 24 hrs: Laboratory Results - last 24 hr 10/01/16 10/01/16 Range/Units 05:40 05:40 WBC 8.99 (4.0-11.0) K/uL RBC 3.34 L (4.50-5.90) M/uL Hgb 9.9 L (13.0-17.0) g/dL Hct 29.8 L (38.0-50.0) % MCV 89.2 (80.0-98.0) fL MCH 29.6 (27.0-32.0) pg MCHC 33.2 (31.0-37.0) g/dL RDW Std Deviation 67.8 H (28.0-62.0) fl RDW Coeff of Trae 21 H (11.0-15.0) % Plt Count 238 (150-400) K/uL MPV 8.40 (7.40-12.00) fL Neut % (Auto) 75.5 (48.0-80.0) % Lymph % (Auto) 10.6 L (16.0-40.0) % [place] % (Auto) 12.7 (0.0-15.0) % Eos % (Auto) 1.1 (0.0-7.0) % Baso % (Auto) 0.1 (0.0-1.5) % Neut # (Auto) 6.8 H (1.4-5.7) K/uL Lymph # (Auto) 1.0 (0.6-2.4) K/uL [place] # (Auto) 1.1 H (0.0-0.8) K/uL Eos # (Auto) 0.1 (0.0-0.7) K/uL Baso # (Auto) 0.0 (0.0-0.1) K/uL Nucleated RBC % 0.0 /100WBC Nucleated RBCs # 0 K/uL Sodium 128 L (136-146) mmol/L Potassium 4.4 (3.5-5.1) mmol/L Chloride 97 L (98-110) mmol/L Carbon Dioxide 26 (21-31) mmol/L BUN 23 (6.0-23.0) mg/dL Creatinine 1.0 (0.6-1.5) mg/dL Est Cr Clr Drug Dosing 57.89 mL/min Estimated GFR (MDRD) > 60.0 ml/min Glucose 89 (60-110) mg/dL Calcium 8.1 L (8.8-10.8) mg/dL Magnesium 1.5 (1.5-2.3) mEq/L Med Orders - Current: Current Medications Albuterol (Ventolin Hfa) 0 gm INH Q6H PRN PRN Reason: Shortness of Breath Albuterol/Ipratropium (Duoneb 3.0-0.5 Mg/3 Ml) 3 ml NEB Q4HRRT PRN PRN Reason: Wheezing Albuterol/Ipratropium (Duoneb 3.0-0.5 Mg/3 Ml) 3 ml NEB BID@0900,2100 [facility] Last Admin: 10/01/16 09:54 Dose: 3 ml Aspirin (Aspirin) 81 mg PO DAILY [facility] Last Admin: 10/01/16 09:29 Dose: 81 mg Clopidogrel Bisulfate (Plavix) 37.5 mg PO DAILY [facility] Last Admin: 10/01/16 09:28 Dose: 37.5 mg Docusate Sodium (Colace) 100 mg PO BID [facility] Last Admin: 10/01/16 09:28 Dose: Not Given Ezetimibe (Zetia) 5 mg PO BEDTIME [facility] Last Admin: 09/30/16 20:14 Dose: 5 mg Furosemide (Lasix) 40 mg PO DAILY [facility] Last Admin: 10/01/16 09:27 Dose: 40 mg Guaifenesin (Mucinex) 600 mg PO BID@0900,1500 [facility] Last Admin: 10/01/16 09:28 Dose: 600 mg Levofloxacin/Dextrose 750 mg/ (Premix) 150 mls @ 100 mls/hr IV Q24H [facility] Last Admin: 09/30/16 16:04 Dose: 100 mls/hr Vancomycin HCl 1 gm/ Sodium (Chloride) 250 mls @ 250 mls/hr IV Q12H [facility] Last Admin: 10/01/16 06:17 Dose: 250 mls/hr Piperacillin Sod/Tazobactam (Sod 3.375 gm/ Sodium Chloride) 50 mls @ 100 mls/ hr IV Q6H [facility] Last Admin: 10/01/16 09:00 Dose: 100 mls/hr Isosorbide Mononitrate (Imdur) 60 mg PO QAM [facility] Last Admin: 10/01/16 09:27 Dose: 60 mg Isosorbide Mononitrate (Imdur) 30 mg PO QPM@2100 [facility] Last Admin: 09/30/16 20:14 Dose: 30 mg Magnesium Hydroxide (Milk Of Magnesia) 30 ml PO DAILY PRN PRN Reason: Constipation Last Admin: 09/27/16 11:21 Dose: 30 ml Magnesium Oxide (Magnesium Oxide) 400 mg PO BID [facility] Last Admin: 10/01/16 09:29 Dose: 400 mg Metoprolol Succinate (Toprol Xl) 100 mg PO DAILY [facility] Last Admin: 10/01/16 09:36 Dose: Not Given Nicotine (Habitrol) 7 mg TRDERM DAILY [facility] Last Admin: 10/01/16 09:25 Dose: 7 mg Potassium Chloride (Klor-Con M20) 20 meq PO DAILY [facility] Last Admin: 10/01/16 09:28 Dose: 20 meq Prednisone (Prednisone) 10 mg PO WITHBREAKFAST [facility] Last Admin: 10/01/16 09:00 Dose: 10 mg Ranolazine (Ranexa) 500 mg PO Q12H [facility] Last Admin: 10/01/16 09:27 Dose: 500 mg Simvastatin (Zocor) 20 mg PO BEDTIME [facility] Last Admin: 09/30/16 20:14 Dose: 20 mg Sodium Chloride (Saline Flush) 10 ml FLUSH ASDIRECTED PRN PRN Reason: Keep Vein Open Sodium Chloride (Saline Flush) 2.5 ml FLUSH ASDIRECTED PRN PRN Reason: Keep Vein Open Discontinued Medications Albuterol/Ipratropium (Duoneb 3.0-0.5 Mg/3 Ml) 3 ml NEB ONETIME ONE Stop: 09/19/16 19:38 Last Admin: 09/19/16 19:59 Dose: 3 ml Albuterol/Ipratropium (Duoneb 3.0-0.5 Mg/3 Ml) 3 ml NEB Q4HRRT PRN PRN Reason: Wheezing/SOB Albuterol/Ipratropium (Duoneb 3.0-0.5 Mg/3 Ml) 3 ml NEB Q6HRRT [facility] Last Admin: 09/20/16 10:19 Dose: 3 ml Albuterol/Ipratropium (Duoneb 3.0-0.5 Mg/3 Ml) 3 ml NEB Q4HRRT [facility] Last Admin: 09/27/16 02:03 Dose: Not Given Albuterol/Ipratropium (Duoneb 3.0-0.5 Mg/3 Ml) 3 ml NEB BIDRT [facility] Last Admin: 09/28/16 09:37 Dose: Not Given Docusate Sodium (Colace) 100 mg PO BID PRN PRN Reason: Constipation Last Admin: 09/23/16 13:28 Dose: 100 mg Enoxaparin Sodium (Lovenox) 40 mg SUBCUT Q24H [facility] Last Admin: 09/20/16 16:03 Dose: 40 mg Furosemide (Lasix) 40 mg IVPUSH NOW ONE Stop: 09/19/16 20:20 Last Admin: 09/19/16 20:28 Dose: 40 mg Furosemide (Lasix) 40 mg IVPUSH NOW ONE Stop: 09/20/16 10:01 Last Admin: 09/20/16 10:22 Dose: 40 mg Furosemide (Lasix) 40 mg IVPUSH NOW ONE Stop: 09/20/16 17:16 Last Admin: 09/20/16 17:43 Dose: 40 mg Furosemide (Lasix) 20 mg IVPUSH ONETIME ONE Stop: 09/21/16 11:41 Last Admin: 09/21/16 17:08 Dose: 20 mg Furosemide (Lasix) 20 mg IVPUSH ONETIME ONE Stop: 09/21/16 17:06 Last Admin: 09/21/16 17:56 Dose: Not Given Furosemide (Lasix) 20 mg PO DAILY [facility] Last Admin: 09/27/16 09:37 Dose: 20 mg Furosemide (Lasix) 20 mg IVPUSH NOW ONE Stop: 09/27/16 13:27 Last Admin: 09/27/16 14:28 Dose: Not Given Furosemide (Lasix) 20 mg PO DAILY [facility] Last Admin: 09/29/16 08:34 Dose: 20 mg Furosemide (Lasix) 40 mg IVPUSH NOW ONE Stop: 09/29/16 21:59 Last Admin: 09/29/16 22:31 Dose: 40 mg Guaifenesin (Mucinex) 1,200 mg PO DAILY [facility] Last Admin: 09/27/16 10:32 Dose: Not Given Sodium Chloride (Normal Saline) 1,000 mls @ 30 mls/hr IV STAT [facility] Last Admin: 09/19/16 19:58 Dose: 30 mls/hr Piperacillin Sod/Tazobactam (Sod 3.375 gm/ Sodium Chloride) 50 mls @ 100 mls/ hr IV Q6H [facility] Last Admin: 09/26/16 18:05 Dose: Not Given Vancomycin HCl 1 gm/ Sodium (Chloride) 250 mls @ 250 mls/hr IV Q12H [facility] Magnesium Sulfate 2 gm/ Premix 50 mls @ 50 mls/hr IV ONETIME ONE Stop: 09/28/16 10:04 Last Admin: 09/28/16 09:29 Dose: 50 mls/hr Isosorbide Mononitrate (Imdur) 60 mg PO BID [facility] Last Admin: 09/25/16 09:08 Dose: 60 mg Isosorbide Mononitrate (Imdur) 30 mg PO DAILY [facility] Isosorbide Mononitrate (Imdur) 30 mg PO BID [facility] Last Admin: 09/29/16 08:34 Dose: 30 mg Isosorbide Mononitrate (Imdur) 30 mg PO QPM [facility] Isosorbide Mononitrate (Imdur) 30 mg PO QPM [facility] Last Admin: 09/29/16 21:38 Dose: Not Given Isosorbide Mononitrate (Imdur) 30 mg PO QPM [facility] Lisinopril (Prinivil) 10 mg PO DAILY [facility] Last Admin: 09/23/16 09:43 Dose: Not Given Magnesium Citrate (Citrate Of Magnesia) 296 ml PO ONETIME ONE Stop: 09/26/16 10:32 Last Admin: 09/26/16 11:14 Dose: 296 ml Methylprednisolone Sodium Succinate (Solu-Medrol) 125 mg IVPUSH ONETIME ONE Stop: 09/19/16 19:38 Last Admin: 09/19/16 19:58 Dose: 125 mg Prednisone (Prednisone) 40 mg PO WITHBREAKFAST [facility] Last Admin: 09/27/16 10:33 Dose: Not Given Prednisone (Prednisone) 20 mg PO WITHBREAKFAST [facility] Last Admin: 09/29/16 08:32 Dose: 20 mg Sodium Chloride (Sodium Chloride 0.9%) 3 ml INH Q6H [facility] Last Admin: 09/28/16 13:18 Dose: Not Given *Q Meaningful Use (DIS) - VTE *Q VTE Criteria *Q: - Stroke *Q Stroke Criteria *Q: - AMI *Q AMI Criteria *Q:
[2016-10-01 14:41] VITALS: BP 95/50
[2016-10-01] MEDS: Levofloxacin/Dextrose 5%-Water 750 MG in Premix Bag 1 BAG IV SCH (16:17)
== END 2016-10-01 17:01 | disposition home or self-care (01) | DRG 291 ==
LOC: MW.ED 19:25 → MW.MS 20:52
PROVIDERS: ADMIT Internal Medicine; ATTEND Internal Medicine
PROC: 30233N1 Transfusion of Nonautologous Red Blood Cells into Peripheral Vein, Percutaneous Approach (ICD-10-PCS; principal; 2016-09-21)
DX: I50.9 Heart failure, unspecified (principal); I50.23 Acute on chronic systolic (congestive) heart failure; J18.9 Pneumonia, unspecified organism; J44.9 Chronic obstructive pulmonary disease, unspecified; D64.9 Anemia, unspecified; K59.09 Other constipation; Z85.46 Personal history of malignant neoplasm of prostate; J43.9 Emphysema, unspecified; R06.09 Other forms of dyspnea; Y95 Nosocomial condition; E83.42 Hypomagnesemia; I25.10 Atherosclerotic heart disease of native coronary artery without angina pectoris; K21.9 Gastro-esophageal reflux disease without esophagitis; F17.200 Nicotine dependence, unspecified, uncomplicated; Z95.1 Presence of aortocoronary bypass graft; Z79.899 Other long term (current) drug therapy; Z95.2 Presence of prosthetic heart valve; I65.29 Occlusion and stenosis of unspecified carotid artery; E87.5 Hyperkalemia
CPT/HCPCS: 71010; 80053; 82550; 82553; 83880; 84484; 85025; 85610; 93005 ×3; 94664 ×2; 96361; 96374; 96375; 99285; J1940; J2930; J7040; 36415; 36430; 71020; 71020-26; 74000; 74000-26; 80048; 80202; 81001; 82272; 83735; 86850; 86900; 86901; 86920; 86921; 86922; 94640; A9270-GY; G0010; J1650; J1956; J2543; J3370; J3475; J7050; P9016

== ENCOUNTER 2016-11-22 22:28 | Emergency (ER) | payer MEDICARE, BC ==
--- NOTE | 2016-11-22 22:54 | EDM.PDOC ---
ED HPI GENERAL MEDICAL PROBLEM - General Chief Complaint: CPR in Progress Stated Complaint: UNK Time Seen by Provider: 11/22/16 22:55 - History of Present Illness INITIAL COMMENTS - FREE TEXT/NARRATIVE: HISTORY AND PHYSICAL: History of present illness: Patient 76-year-old who comes in cardiopulmonary arrest with a downtime of reportedly 10-15 minutes in which ACLS was initiated and paramedics upon arrival patient presents pulseless nonbreathing he was intubated by myself with an 8-0 status post color change was good and breath sounds were equal ET tube central line was placed upon arrival right femoral 8.5 [place] Cordis was placed ACLS was continued patient was unresponsive to ACLS and pronounced at 2231 See CODE BLUE sheet for complete documentation Impression: Cardiopulmonary arrest Definitive disposition and diagnosis as appropriate pending reevaluation and review of above. - Related Data Allergies Allergy/AdvReac Type Severity Reaction Status Date / Time No Known Allergies Allergy Verified 09/19/16 19:32 Home Meds: Home Meds Metoprolol Succinate [Toprol Xl] 100 mg PO DAILY 11/17/14 [History] Nitroglycerin 0.4 mg PO ASDIRECTED PRN 01/28/15 [History] Clopidogrel [Plavix] 37.5 mg PO DAILY 07/19/16 [History] Ezetimibe/Simvastatin [Vytorin 10-80 mg Tablet] 5 - 40 mg PO BEDTIME 07/19/16 [ History] guaiFENesin [Mucinex] 1,200 mg PO DAILY 07/19/16 [History] Aspirin 81 mg PO DAILY 07/22/16 [History] Albuterol [Ventolin HFA] 2 inh IH QID PRN 09/20/16 [History] Albuterol/Ipratropium [DuoNeb 3.0-0.5 MG/3 ML] 3 ml IH QID 09/20/16 [History] Isosorbide Mononitrate [Imdur] 60 mg PO BID 09/20/16 [History] Lisinopril 10 mg PO DAILY 09/20/16 [History] Ranolazine [Ranexa] 500 mg PO Q12H 09/20/16 [History] Amoxicillin/Clavulanate K [Augmentin 875 MG/125 MG] 1 tab PO Q12HR #10 tablet [Rx] Furosemide [Lasix] 40 mg PO DAILY #30 tablet 10/01/16 [Rx] Magnesium Oxide 400 mg PO BID #60 tablet 10/01/16 [Rx] Potassium Chloride [Klor-Con M20] 20 meq PO DAILY #30 tab.er 10/01/16 [Rx] Past Medical History HEENT History: Reports: Impaired Vision Cardiovascular History: Reports: Bypass, CAD, Heart Failure, Heart Valve Replacement, SOB on Exertion Respiratory History: Reports: COPD, Other (See Below) Other Respiratory History: emphysema Gastrointestinal History: Reports: GERD Genitourinary History: Reports: Prostate Disorder Musculoskeletal History: Reports: Other (See Below) Other Musculoskeletal History: past rib fx Neurological History: Reports: None Psychiatric History: Reports: None Endocrine/Metabolic History: Reports: None Hematologic History: Reports: Anemia Immunologic History: Reports: None Oncologic (Cancer) History: Reports: Prostate Dermatologic History: Reports: None - Infectious Disease History Infectious Disease History: Reports: Chicken Pox, Measles, Mumps - Past Surgical History Cardiovascular Surgical History: Reports: Coronary Artery Bypass Respiratory Surgical History: Reports: None Social & Family History - Family History Family Medical History: Noncontributory - Tobacco Use Smoking Status *Q: Current Every Day Smoker Years of Tobacco use: 55 Packs/Tins Daily: 0.5 Used Tobacco, but Quit: No Second Hand Smoke Exposure: No - Caffeine Use Caffeine Use: Reports: Coffee Caffeine Use Comment: Drinks 6 cups of coffee in a day. - Alcohol Use Days Per Week of Alcohol Use: 7 Number of Drinks Per Day: 1 Total Drinks Per Week: 7 - Recreational Drug Use Recreational Drug Use: No ED ROS GENERAL - Review of Systems Review Of Systems: ROS reveals no pertinent complaints other than HPI. ED EXAM, GENERAL - Physical Exam Exam: See Below (See dictation) Departure - Departure Time of Disposition: 22:53 Disposition: 20 Clinical Impression: Cardiopulmonary arrest - Discharge Information Referrals: PCP,None [Primary Care Provider] -
[2016-11-22] MEDS ORDERED: EPINEPHrine 1:10,000 1 MG/10 ML Syringe IVPUSH ONE ×3 (23:25→23:41)
[2016-11-22] MEDS ORDERED: Sodium Bicarbonate 8.4% 50 MEQ/50 ML Syringe IVPUSH ONE (23:30)
[2016-11-22] MEDS ORDERED: Sodium Chloride 0.9% 1,000 ML IV ONE (23:31)
[2016-11-22] MEDS ORDERED: Lidocaine 2% 100 MG/5 ML Syringe IVPUSH ONE (23:42)
== END 2016-11-22 23:45 | disposition expired ==
LOC: MW.ED 22:28
DX: I46.9 Cardiac arrest, cause unspecified (principal); I25.10 Atherosclerotic heart disease of native coronary artery without angina pectoris; J44.9 Chronic obstructive pulmonary disease, unspecified; K21.9 Gastro-esophageal reflux disease without esophagitis; F17.210 Nicotine dependence, cigarettes, uncomplicated; I50.9 Heart failure, unspecified; Z79.899 Other long term (current) drug therapy; Z79.82 Long term (current) use of aspirin; Z95.2 Presence of prosthetic heart valve; Z86.2 Personal history of diseases of the blood and blood-forming organs and certain disorders involving the immune mechanism
CPT/HCPCS: 92950; 99285; J0171; J7040; 99284